=== PATIENT | female | born 1955 ===

== ENCOUNTER 2019-05-20 12:32 | Inpatient (IN) | payer BC ==
[2019-05-20] MEDS ORDERED: Al Hydrox/Mg Hydrox/Simet LIQ* 30 ML UDC PO PRN (14:06)
[2019-05-20] MEDS ORDERED: Magnesium Hydroxide LIQ* 30 ML UDC PO PRN (14:06)
[2019-05-20] MEDS ORDERED: Albuterol/Ipratropium NEB.SOL* Albuterol 2.5 MG/Ipratropium 0.5 MG 3 ML INH PRN (14:16)
[2019-05-20] MEDS ORDERED: oxyCODONE TAB* 5 MG TAB PO PRN (14:17)
[2019-05-20] MEDS ORDERED: Zolpidem TAB* 5 MG PO PRN (14:18)
[2019-05-20] MEDS ORDERED: Acetaminophen TAB* 325 MG PO PRN (14:51)
[2019-05-20] MEDS ORDERED: Acetaminophen TAB* 325 MG PO SCH (15:00)
[2019-05-20] MEDS ORDERED: diPHENhydraMINE PO* 25 MG PO PRN (18:26)
--- NOTE | 2019-05-20 20:08 | HP ---
CC: Dr. Urbano REHABILITATION ADMISSION: 05/20/2019 DATE OF ADMISSION: 05/20/2019 PRIMARY CARE PROVIDER: Currently none. VASCULAR SURGEON: Dr. Urbano with [facility]. REASON FOR ADMISSION: Left knee dislocation with popliteal artery transection and right humerus fracture. HISTORY OF PRESENT ILLNESS: This is a 63-year-old woman who on 05/05/[address] out to meet up with friends when she slipped on the ice and hyperextended her left knee and fell. She ended up dislocating her left knee with a transection of her left popliteal artery as well as sustained a right proximal humerus comminuted fracture. She was taken to [facility]. Orthopedics reduced her knee emergently, but pulses did not return to her leg. She was then taken to the OR for angiography and ultimately had a bypass of her popliteal artery above and below the transection with a BCA graft and medial and lateral fasciotomies. Initially, wound VACs were placed on her wounds. On 05/13/19, she was seen by Plastics and Reconstructive Surgery, who recommended ultimately having wet to dry dressings twice a day. When swelling is less they are considering primary closure. She was put into a knee orthosis with her left leg locked in 20 degrees of flexion and is nonweightbearing on her left lower extremity. The right proximal humerus is also being treated nonoperatively with a sling and nonweightbearing. As part of her injuries, she developed acute renal failure with rhabdomyolysis. Her creatinine peaked out at 6. She was put on a renal diet with avoidance of nephrotoxic drugs. Her renal function has improved, and as of today, her creatinine is down to 1.8. She has also had leukocytosis without any clear source of infection. It has come back more down towards the normal range and is 14.5 today. She has required at least 2 transfusions. The last transfusion was 2 units of packed red blood cells on 05/18/19. Today, her hemoglobin is 8.4, hematocrit 25.5. She has also had some hyponatremia. Her stomach was irritated from Tylenol which has happened in the past at home. She has not been using any pain medicines over the last few days. She has some discomfort but feels that she is better off not using any pain medications. MRI of her left knee on 05/14/19 showed complete ACL and PCL tears as well as some irregularity of the lateral meniscus. There is an avulsion fracture to the fibular styloid process. CT of the right shoulder on 05/15/19 showed a comminuted and minimally displaced right proximal humerus fracture. She is to follow up with [facility] in [place] on 05/30/19 at 9:30 in the morning with Melanie Vaz. She was seen by the renal service and has received some iron treatments. It has been recommended that as an outpatient she get electrodiagnostic testing as she has had loss of sensation and weakness from her knee down on the left side. She had some perioperative delirium which has cleared. She has been voiding on a bedpan. Her last bowel movement was this morning. Since the [place] has been out , she has had a little bit of urinary incontinence, but this was not a problem prior to admission. Prior to admission, she was independent with all mobility and ADLs and not using any assisted devices. With physical therapy at [facility], she has required a maximum assistance x2 for bed mobility and transferring using a margareth- walker. With occupational therapy, she has required a maximum amount of assistance for lower body dressing. PAST MEDICAL HISTORY: 1. History of left vitreous detachment of her eye. 2. Hypertension. 3. Rectocele and cystocele. 4. Bilateral cataract surgeries. 5. Status post tubal ligation. 6. Cardiomegaly. 7. Obesity. 8. Acute kidney injury secondary to rhabdomyolysis, see history of present illness. 9. Delirium, see history of present illness. 10. Former smoker, she denies emphysema. 11. Left knee dislocation, see history of present illness. 12. Right proximal humerus comminuted fracture, see history of present illness. 13. Left lower extremity neuropathy, see history of present illness. 14. s/p popliteal to popliteal bypass left leg after transection, see HPI. MEDICATIONS: 1. Tylenol 650 mg q.6 hours p.r.n. moderate pain. 2. DuoNeb 3 mL q.4 hours p.r.n. shortness of breath, which she has not needed. 3. Amlodipine 5 mg q. day. 4. Dulcolax 10 mg pr q. day p.r.n. 5. Multivitamin q. day. 6. Colace 100 mg b.i.d. 7. Milk of magnesia 30 mL b.i.d. p.r.n. constipation. 8. Oxycodone 5 mg q.4 hours p.r.n. severe pain. 9. She has been using Rozerem 8 mg q.h.s. p.r.n., which we will switch to Ambien. 10. Vitamin C 500 mg q. day. 11. Voltaren gel she used at home b.i.d. p.r.n. 12. Vitamin D 400 units q. day. 13. Vitamin B complex 1 q. day. 14. Heparin 5000 units subcutaneously q.8 hours for DVT prophylaxis. ALLERGIES: ASPIRIN and PENICILLIN. FAMILY HISTORY: She has had aunts with breast cancer and ovarian cancer. SOCIAL HISTORY: She lives with her in [place]. They live in a trailer with 5 steps to enter. He is a jefferson for [employer] and plans to build a ramp into their home. It is unclear if there is enough room for a wheelchair. She has a 60-pack a year smoking history and quit more than 10 years ago. She has 1 glass of wine per day. 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 She works from her home. REVIEW OF SYSTEMS: See history of present illness and past medical history. The remainder of the 13-system review was completed. No other significant findings. PHYSICAL EXAMINATION GENERAL: Well developed, well nourished, appearing stated age. MENTAL STATUS: No acute distress. Alert and oriented x3. VITAL SIGNS: Temperature 99.1, pulse 86, blood pressure 154/67, oxygenation 99 % on room air, respirations 16. HEENT: Normocephalic, atraumatic. Oropharynx is clear with moist mucous membranes. She does have poor dentition. NECK: Supple. No lymphadenopathy. LUNGS: Clear to auscultation bilaterally. HEART: Regular rate and rhythm. ABDOMEN: Active bowel sounds. Soft, nontender, nondistended. She does have some bruising from heparin shots. EXTREMITIES: No clubbing or cyanosis. She has some pedal edema, left greater than right. Her left leg is currently dressed and in the brace locked at 20 degrees of flexion. Her right arm was in a sling. NEUROLOGICAL EXAM: She has 5/5 strength in her left upper extremity and right lower extremity with normal sensation. She has normal sensation throughout her right upper extremity and 5/5 strength in her hand and wrist. The rest of testing limited by her restrictions. In the left lower extremity, she has impaired sensation from the knee down and just trace toe flexion. Cranial nerves II through XII are intact. MUSCULOSKELETAL: She has functional range of motion of her left arm and of her right leg. DIAGNOSTIC STUDIES/LAB DATA: Labs today, white blood cell count 14.5, hemoglobin 8.4, hematocrit 25.5, platelets 302. Sodium 129, potassium 3.6, BUN 57, creatinine 1.8. IMPRESSION: A 63-year-old woman status post left knee dislocation with popliteal artery transection requiring bypass and right proximal humerus fracture. PLAN: 1. Status post popliteal bypass. She is to follow up with Dr. Urbano in 2 weeks in the vascular clinic at [facility]. It has been recommend that she have a multi Podus boot on when she is in bed. She is to hold on any Plavix until after she has had her surgery with potential skin grafting with the Plastics and Reconstructive Service. She currently has a followup appointment with nurse in the plastic surgery clinic on 05/24/19, which we will see if we can change that as she just arrived here. She has a followup with Vascular Surgery on 06/03/19 at 11:20 in the morning. 2. Left knee dislocation and right humerus fracture. Continue with nonweightbearing precautions to the left lower extremity and right upper extremity. Continue with brace on her left leg locked to 20 degrees of flexion and range of motion and stretching of her left foot more than 5 times per day. Continue with slinging of the right arm. She has a followup with [facility] in [place] on 05/30/19 at 9:30 in the morning with Melanie Vaz. 3. Status post fasciotomy with wounds. Continue with wet to dry dressings b.i.d. to the left leg. Follow up with Plastics for possible consideration of tissue expansion and primary closure. 4. Acute blood loss anemia, status post transfusion. Her labs will be checked regularly. We will encourage regular nutrition and have a nutrition consult. 5. Neuropathy, presumably traumatic to the left lower limb. As an outpatient, she will need electrodiagnostic testing. She has had some slight return, hopefully this continues. 6. Acute renal failure. Her creatinine is improved enough I think she can be on a regular diet at this time. We will follow her renal function with regular labs and once again consult nutrition regarding her needs that assist with healing. 7. Hyponatremia. Follow up of labs. 8. Impaired mobility. She will be seen by Physical Therapy for transfer, bed mobility, and short distance of gait training using a margareth walker and wheelchair. 9. Impaired self-care. She will be by Occupational Therapy for ADL training and equipment evaluation. Family training as appropriate. 10. Advance directives. She is a full code. If she cannot make decisions for herself, her , Bradley Ashraf, will make decisions for her. ESTIMATED LENGTH OF STAY: Three weeks. This will be discussed further at the interdisciplinary plan of care meeting. [id number]/CPS #: [id number] GALO
[2019-05-20] MEDS: Docusate CAP* 100 MG PO SCH (21:29)
[2019-05-20] MEDS: Heparin VIAL(*) 5000 UNITS/ML VIAL (FIVE THOUSAND) SUBCUT SCH (21:29)
[2019-05-21 05:36] LABS: ABS Basophils 0.1 10^3/ul (0-0.2); ABS Eosinophils 0.1 10^3/ul (0-0.6); ABS Lymphocytes 1.3 10^3/ul (1.0-4.8); ABS Monocytes 1.3 10^3/ul (0-0.8); ABS Neutrophils 8.8 10^3/ul (1.5-7.7); Eosinophil % 0.7 %; Hematocrit 25 % (35-47); Hemoglobin 8.4 g/dL (12.0-16.0); Lymphocyte % 11.1 %; Mean Corpuscular HGB Conc 33 g/dL (31-36); Mean Corpuscular Hemoglobin 29 pg (27-31); Mean Corpuscular Volume 86 fL (80-97); Mean Platelet Volume 8.3 fL (7.4-10.4); Nucleated Red Blood Cells % 0.1; Platelet Count 299 10^3/uL (150-450); Red Blood Count 2.92 10^6 /uL (3.70-4.87); Red Cell Distribution Width 15 % (10-15); White Blood Count 11.6 10^3/uL (3.5-10.8)
[2019-05-21] MEDS: Heparin VIAL(*) 5000 UNITS/ML VIAL (FIVE THOUSAND) SUBCUT SCH ×3 (05:40→21:43)
[2019-05-21 06:02] LABS: Albumin 2.6 g/dL (3.2-5.2); BUN/Creatinine Ratio 27.2 (8-20); Calcium 7.9 mg/dL (8.6-10.3); EGFR African American 38.7 (>60); Globulin 2.5 g/dL (2-4); Potassium 3.8 mmol/L (3.5-5.0); Total Bilirubin 0.7 mg/dL (0.2-1.0); Total Protein 5.1 g/dL (6.4-8.9)
--- NOTE | 2019-05-21 08:18 | PN ---
Progress Note Date of Service: 05/21/19 Note: JI ASHRAF was visited. Nursing and therapy notes read and reviewed. No chest pain, shortness of breath or abdominal pain. She slept very well last night. Uses an anti-histamine at home for sleep and she will have her bring it in. Current Medications: Active Medications Generic Name Dose Route Start Last Admin Trade Name Freq PRN Reason Stop Dose Admin Acetaminophen 650 mg 05/20/19 14:51 Tylenol Tab* PO Q6H PRN PAIN - MODERATE Al Hydrox/Mg Hydrox/Simethicone 30 ml 05/20/19 14:06 Maalox Plus* PO Q6H PRN INDIGESTION Albuterol/Ipratropium 1 neb 05/20/19 14:16 Duoneb (Albuterol 2.5 Mg/Ipratropium 0.5 Mg) INH Q4H PRN SOB/WHEEZING Amlodipine Besylate 5 mg 05/21/19 09:00 Norvasc Tab* PO DAILY CANDIDO Ascorbic Acid 500 mg 05/21/19 09:00 Vitamin C Tab* PO DAILY CANDIDO Bisacodyl 10 mg 05/20/19 14:06 Dulcolax Supp* GA DAILY PRN CONSTIPATION Cholecalciferol 400 unit 05/21/19 09:00 Vitamin D Tab* PO DAILY CANDIDO Diphenhydramine HCl 25 mg 05/20/19 18:26 Benadryl Po* PO 05/21/19 18:25 ONCE PRN INSOMNIA Docusate Sodium 100 mg 05/20/19 21:00 05/20/19 21:29 Colace Cap* PO 100 mg BID CANDIDO Administration Heparin Sodium (Porcine) 5,000 units 05/20/19 22:00 05/21/19 05:40 Heparin Vial(*) SUBCUT 5,000 units Q8HR CANDIDO Administration Magnesium Hydroxide 30 ml 05/20/19 14:06 Milk Of Magnesia Liq* PO Q6H PRN CONSTIPATION Multivitamins/Minerals 1 tab 05/21/19 09:00 Theragran/Minerals Tab* PO DAILY CANDIDO Oxycodone HCl 5 mg 05/20/19 14:17 Roxycodone Tab* PO Q4H PRN PAIN - SEVERE Senna 2 tab 05/20/19 14:06 Senokot 8.6 Mg Tab* PO BEDTIME PRN CONSTIPATION Vitamin B Complex/Vitamin E 1 tab 05/21/19 09:00 B Complex-50* PO DAILY CANDIDO Zolpidem Tartrate 5 mg 05/20/19 14:18 Ambien Tab* PO BEDTIME PRN INSOMNIA Vital Signs: Vital Signs Temp Pulse Resp BP Pulse Ox 98.1 F 73 18 139/53 96 05/21/19 05:58 05/21/19 05:58 05/21/19 05:58 05/21/19 05:58 05/21/19 05:58 Lab Results: Laboratory Results - last 24 hr 05/21/19 05/21/19 05:26 05:26 WBC 11.6 H RBC 2.92 L Hgb 8.4 L Hct 25 L MCV 86 MCH 29 MCHC 33 RDW 15 Plt Count 299 MPV 8.3 Neut % (Auto) 76.2 Lymph % (Auto) 11.1 [place] % (Auto) 11.4 Eos % (Auto) 0.7 Baso % (Auto) 0.6 Absolute Neuts (auto) 8.8 H Absolute Lymphs (auto) 1.3 Absolute Monos (auto) 1.3 H Absolute Eos (auto) 0.1 Absolute Basos (auto) 0.1 Absolute Nucleated RBC 0.0 Nucleated RBC % 0.1 Sodium 135 Potassium 3.8 Chloride 101 Carbon Dioxide 29 Anion Gap 5 BUN 44 H Creatinine 1.62 H Est GFR ( Amer) 38.7 Est GFR (Non-Af Amer) 32.0 BUN/Creatinine Ratio 27.2 H Glucose 115 H Calcium 7.9 L Total Bilirubin 0.70 AST 33 ALT 40 Alkaline Phosphatase 49 Total Protein 5.1 L Albumin 2.6 L Globulin 2.5 Albumin/Globulin Ratio 1.0 Exam: GENERAL: No acute distress. Alert and appropriate. LUNGS: Clear to auscultation bilaterally. HEART: Regular rate and rhythm. ABDOMEN: Active bowel sounds. Soft, nontender, nondistended. EXTREMITIES: She has some pedal edema, left greater than right. +DP/PT pulses bilaterally. Left leg brace locked at 20 degrees of flexion. Right arm in a sling. SKIN: Left leg dressings changed with nursing. Granulating tissue in wounds. Lateral wound with serous drainage. Looks clean. NEUROLOGICAL EXAM: Normal sensation x3. Impaired sensation in left leg below the knee. Trace left toe flexion and otherwise 0/5 left foot/ankle. Exam of rest of LLE motor limited by restrictions. RLE and LUIE motor 5/5. RUE motor 5 /5 in hand and wrist with rest of exam limited by sling/restriction. Assessment/Plan: 63-year-old woman status post left knee dislocation with popliteal artery transection requiring bypass and right proximal humerus fracture. 1. Status post popliteal bypass: She is to follow up with Dr. Urbano in 2 weeks in the vascular clinic at [facility]. Hold on Plavix until after she has had surgery with potential skin grafting with the Plastics and Reconstructive Service. She has a followup with Vascular Surgery on 06/03/19 at 11:20a. 2. Left knee dislocation and right humerus fracture: Continue with non-weight bearing precautions to the left lower extremity and right upper extremity. Continue with brace on her left leg locked to 20 degrees of flexion. Range of motion and stretching of her left foot/ankle at least 5 times per day to prevent contracture. Continue with sling of the right arm. She has a followup with [facility] in [place] on 05/30/19 at 9:30 in the morning with Melanie Vaz. 3. Status post LLE fasciotomy with open wounds: Continue with moist to dry dressings b.i.d. to the left leg. Follow up with Plastics for possible consideration of tissue expansion and primary closure. She has a followup appointment with a nurse in the plastic surgery clinic on 05/24/19, which we will see if we can change. 4. Acute blood loss anemia: stable. Follow routine labs. 5. Traumatic neuropathy to the left lower limb involving tibial and peroneal nerves: As an outpatient, she will need electrodiagnostic testing. Multi Podus boot on LLE when she is in bed. 6. Acute renal failure: Cr improving. Follow routine labs. 7. Hyponatremia: Resolved. 8. Leukocytosis: resolving without any intervention. 9. Impaired mobility: PT for transfer, bed mobility, and short distance gait training using a margareth walker and wheelchair. 10. Impaired self-care: OT for ADL training and equipment evaluation. Family training as appropriate. 11. Advance directives: She is a full code. If she cannot make decisions for herself, her , Bradley Ashraf, will make decisions for her. 12. Estimated LOS: IPOC on Thursday. 05/21/19 09:27
[2019-05-21] MEDS ORDERED: Ascorbic Acid TAB* 500 MG PO SCH (09:00)
[2019-05-21] MEDS ORDERED: Vitamin B Complex TAB PO SCH (09:00)
[2019-05-21] MEDS ORDERED: diPHENhydraMINE PO* 25 MG PO PRN (09:14)
[2019-05-21] MEDS: Cholecalciferol TAB* 400 UNIT PO SCH (11:01)
[2019-05-21] MEDS: amLODIPine TAB* 5 MG PO SCH (11:01)
[2019-05-21] MEDS: Docusate CAP* 100 MG PO SCH ×2 (11:01→21:43)
[2019-05-21] MEDS: Multivitamins/Minerals TAB PO SCH (11:01)
[2019-05-22] MEDS: Heparin VIAL(*) 5000 UNITS/ML VIAL (FIVE THOUSAND) SUBCUT SCH ×3 (06:17→21:59)
[2019-05-22] MEDS: amLODIPine TAB* 5 MG PO SCH (08:32)
[2019-05-22] MEDS: Docusate CAP* 100 MG PO SCH ×2 (08:32→21:59)
[2019-05-22] MEDS: Cholecalciferol TAB* 400 UNIT PO SCH (08:33)
[2019-05-22] MEDS: Multivitamins/Minerals TAB PO SCH (08:33)
[2019-05-22] MEDS: [UNRECOGNIZED DRUG - OTHER] PO SCH (08:34)
--- NOTE | 2019-05-22 10:06 | PN ---
Progress Note Date of Service: 05/22/19 Note: JI ASHRAF was visited. Nursing and therapy notes read and reviewed. Her family brought in supplements. Current Medications: Active Medications Generic Name Dose Route Start Last Admin Trade Name Freq PRN Reason Stop Dose Admin Acetaminophen 650 mg 05/20/19 14:51 Tylenol Tab* PO Q6H PRN PAIN - MODERATE Al Hydrox/Mg Hydrox/Simethicone 30 ml 05/20/19 14:06 Maalox Plus* PO Q6H PRN INDIGESTION Amlodipine Besylate 5 mg 05/21/19 09:00 05/22/19 08:32 Norvasc Tab* PO 5 mg DAILY CANDIDO Administration Bisacodyl 10 mg 05/20/19 14:06 Dulcolax Supp* [place] DAILY PRN CONSTIPATION Cholecalciferol 400 unit 05/21/19 09:00 05/22/19 08:33 Vitamin D Tab* PO 400 unit DAILY CANDIDO Administration Docusate Sodium 100 mg 05/20/19 21:00 05/22/19 08:32 Colace Cap* PO 100 mg BID CANDIDO Administration Heparin Sodium (Porcine) 5,000 units 05/20/19 22:00 05/22/19 06:17 Heparin Vial(*) SUBCUT 5,000 units Q8HR CANDIDO Administration Magnesium Hydroxide 30 ml 05/20/19 14:06 Milk Of [place] Liq* PO Q6H PRN CONSTIPATION Multivitamins/Minerals 1 tab 05/21/19 09:00 05/22/19 08:33 Theragran/Minerals Tab* PO 1 tab DAILY CANDIDO Administration Pto - Sleep Aid ( 1 dose 05/21/19 17:58 Doxylamine 25 Mg) PO BEDTIME PRN SLEEP Pto - Super B Mvi 1 dose 05/22/19 09:00 05/22/19 08:34 Supplement PO 1 dose DAILY CANDIDO Administration Pto - Super C Mvi 1 dose 05/22/19 18:00 PO BID WITH MEALS CANDIDO Oxycodone HCl 5 mg 05/20/19 14:17 Roxycodone Tab* PO Q4H PRN PAIN - SEVERE Senna 2 tab 05/20/19 14:06 Senokot 8.6 Mg Tab* PO BEDTIME PRN CONSTIPATION Vital Signs: Vital Signs Temp Pulse Resp BP Pulse Ox 98.2 F 76 16 153/69 100 05/22/19 06:10 05/22/19 06:10 05/22/19 08:00 05/22/19 06:10 05/22/19 08:00 Exam: GENERAL: No acute distress. Alert and appropriate. LUNGS: Clear to auscultation bilaterally. HEART: Regular rate and rhythm. ABDOMEN: Active bowel sounds. Soft, nontender, nondistended. EXTREMITIES: She has some pedal edema, left greater than right. +DP/PT pulses bilaterally. Left leg brace locked at 20 degrees of flexion. Right arm in a sling. SKIN: Left leg dressings changed with nursing. Granulating tissue in wounds. Looks clean. NEUROLOGICAL EXAM: Normal sensation x3. Impaired sensation in left leg below the knee. Trace left toe flexion and otherwise 0/5 left foot/ankle. Exam of rest of LLE motor limited by restrictions. RLE and LUE motor 5/5. RUE motor 5/ 5 in hand and wrist with rest of exam limited by sling/restriction. 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 1. Status post popliteal bypass: She is to follow up with Dr. Urbano in 2 weeks in the vascular clinic at [facility]. Hold on Plavix until after she has had surgery with potential skin grafting with the Plastics and Reconstructive Service. She has a followup with Vascular Surgery on 06/03/19 at 11:20a. 2. Left knee dislocation and right humerus fracture: Continue with non-weight bearing precautions to the left lower extremity and right upper extremity. Continue with brace on her left leg locked to 20 degrees of flexion. Range of motion and stretching of her left foot/ankle at least 5 times per day to prevent contracture. Continue with sling of the right arm. She has a followup with [facility] in [place] on 05/30/19 at 9:30 in the morning with Melanie Vaz. 3. Status post LLE fasciotomy with open wounds: Continue with moist to dry dressings b.i.d. to the left leg. Follow up with Plastics for possible consideration of tissue expansion and primary closure. She has a follow up appointment with a nurse in the plastic surgery clinic on 05/24/19, which we will see if we can change. 4. Acute blood loss anemia: stable. Follow routine labs. 5. Traumatic neuropathy to the left lower limb involving tibial and peroneal nerves: As an outpatient, she will need electrodiagnostic testing. Multi Podus boot on LLE when she is in bed. 6. Acute renal failure: Cr improving. Follow routine labs. 7. Hyponatremia: Resolved. 8. Leukocytosis: resolving without any intervention. 9. Impaired mobility: PT for transfer, bed mobility, and short distance gait training using a margareth walker and wheelchair. 10. Impaired self-care: OT for ADL training and equipment evaluation. Family training as appropriate. 11. Advance directives: She is a full code. If she cannot make decisions for herself, her , Bradley Ashraf, will make decisions for her. 12. Vitamin D deficiency: has own supplement of 5000iu daily. Will restart and check level with next labs on Thursday. 13. Estimated LOS: IPOC on Thursday. 05/22/19 10:09
[2019-05-22] MEDS ORDERED: [UNRECOGNIZED DRUG - OTHER] PO SCH (10:30)
[2019-05-22] MEDS: [UNRECOGNIZED DRUG - OTHER] PO SCH (13:08)
[2019-05-22] MEDS: [UNRECOGNIZED DRUG - OTHER] PO SCH ×2 (13:09→17:20)
[2019-05-22] MEDS: [UNRECOGNIZED DRUG - OTHER] PO SCH (17:08)
[2019-05-23] MEDS: [UNRECOGNIZED DRUG - OTHER] PO PRN ×2 (00:49→22:35)
[2019-05-23] MEDS: DOXYLAMINE PO PRN ×2 (00:49→22:35)
[2019-05-23] MEDS: Heparin VIAL(*) 5000 UNITS/ML VIAL (FIVE THOUSAND) SUBCUT SCH ×3 (04:43→21:04)
[2019-05-23] MEDS: [UNRECOGNIZED DRUG - OTHER] PO SCH (08:12)
[2019-05-23] MEDS: [UNRECOGNIZED DRUG - OTHER] PO SCH (08:12)
[2019-05-23] MEDS: [UNRECOGNIZED DRUG - OTHER] PO SCH ×2 (08:12→17:07)
[2019-05-23] MEDS: amLODIPine TAB* 5 MG PO SCH (08:13)
[2019-05-23] MEDS: Docusate CAP* 100 MG PO SCH ×2 (08:13→21:05)
[2019-05-23] MEDS: Multivitamins/Minerals TAB PO SCH (08:14)
[2019-05-23] MEDS: Cholecalciferol TAB* 400 UNIT PO SCH (08:29)
[2019-05-23] MEDS: [UNRECOGNIZED DRUG - OTHER] PO SCH ×3 (08:29→17:08)
--- NOTE | 2019-05-23 13:08 | PMRUTEAM ---
PMRU: Team Meeting Current Status: Physical Therapy: Current Status Current Rolling Status Partial/Moderate Current Supine <-> Sit Status Dependent Current Sit <-> Stand Status Dependent Current Bed <-> Chair Status Dependent Transfer/Bed Mobility EZ Stand,Slide Board Recommended Devices Current Picking Up Object Not attempted Status Current Car Transfer Status Not attempted due to Current Ambulation Assistance Not attempted Status Manual Wheelchair Control/ Left UE Technique Current Wheelchair Propulsion Partial/Moderate Ability Status Wheelchair Distance (ft) 50' Current Stair Climbing Status Not attempted Current Curb Assistance Status Not attempted Objective Comments Pt attempts to propel manual WC with LUE/RLE - pt requires min Ax1 to propel 50' over even surfaces with >2 turns Occupational Therapy: Current Status Current Upper Body Dressing Partial/Moderate Status Current Lower Body Dressing Dependent Status Current Footwear Status Dependent Current Bathing Status Partial/Moderate Current Grooming Status Setup or Clean-up Assist Current Toileting Status Dependent Current Toilet Transfer Status Dependent Current Eating Status Setup or Clean-up Assist Nursing: Current Status Skin Deviations [Left Knee] Abrasion Skin Deviations [Left Lower Abrasion Arm] Skin Deviations [Right Arm] Other Skin Deviations [Left Lower Incision Leg] Skin Deviations [Left Upper Incision Thigh] Skin Deviations [Right Groin] Abrasion Skin Deviations [Coccyx] Rash Skin Deviation Description [ scabs at anterior and posterior of the knee Left Knee] Skin Deviation Description [ in sling Right Arm] Skin Deviation Description [ immobilizer and multipodus boot on Left Lower Leg] Skin Deviation Description [ drsgs in place Left Upper Thigh] Skin Deviation Description [ scabs Right Groin] Skin Deviation Description [ slid---cream was applied Coccyx] Social Work: Current Status Discharge Plan return home with home care svs and family support Potential for Family Training patient's family are involved and supportive Anticipated Discharge Home Destination Discharge With home care svs and family support Goals: Physical Therapy: Goals Goals to Be Accomplished in ( 21-28 Days) Goal: Rolling Assistance Independent Goal Supine <-> Sit Status Independent Goal Sit <-> Stand Status Supervision/Touching Goal Bed <-> Chair Status Supervision/Touching Transfer/Bed Mobility Mike Lift,Slide Board Recommended Devices Goal: Picking Up Object Supervision/Touching Goal: Car Transfer Status Partial/Moderate Goal: Ambulation Assistance Not attempted Goal: Wheelchair Propulsion Independent Ability Wheelchair Distance (ft) 150' Goal: Stairs Assistance Not attempted Goal: Curb Assistance Not attempted Goal: Home Exercise Program Independent Assistance Occupational Therapy: Goals Goals to be Completed in (Days 21-28 days ) Goal Upper Body Dressing Independent Routine Goal Lower Body Dressing Independent Routine Goal Footwear Status Independent Goal Bathing Routine (OT) Independent Goal Grooming Routine Independent Goal Toilet Hygiene and Independent Clothing Management Routine Goal Toilet Transfer Routine Independent Goal Functional Transfers for Independent ADL Goal Feeding Routine Independent Goal Light Housekeeping Tasks Independent Nutrition: Goals Intervention Goals 1. adequate intake to support lean body mass and LLE wound healing without add'l wt gain 2. maintain serum electrolytes WNL 3. achieve and maintain renal parameters WNL 4. regulation of bowel pattern; no c/o constipation (or diarrhea) Social Work: Goals Discharge Plan return home with home care svs and family support Potential for Family Training patient's family are involved and supportive Anticipated Discharge Home Destination Discharge With home care svs and family support Care Plan: Care Plan Cardiovascular- Improve/Maintain Start: 05/20/19 16:10 Freq: DAILY@[id number] Status: Active Target: 05/26/19 Protocol: Activity Type Activity Date Activity User E-Sign Co-Sign Detail Recorded Client Recorded Date Recorded By Document 05/22/19 23:59 [id number] 05/22/19 23:59 [id number] 05/22/19 23:59 PMRU Outcome: Cardiovascular Vital Signs q Shift for 48hrs Then BID Yes Daily Weight Ordered No Current Cardiovascular Outcome/Goal Maintain/ Achieve Baseline HR, BP , Perfusion Maintain/ Improve Perfusion Maintain/ Achieve Hemodynamic Stability Free of Abnormal Cardiac Symptoms Improve/ Maintain Cardiac Output Progression Toward Outcome/Goal Progressing DVT Prophylaxis- Improve/Maintain Start: 05/20/19 16:10 Freq: DAILY@[id number] Status: Active Target: 05/26/19 Protocol: Activity Type Activity Date Activity User E-Sign Co-Sign Detail Recorded Client Recorded Date Recorded By Document 05/22/19 23:59 [id number] 05/22/19 23:59 [id number] 05/22/19 23:59 PMRU Outcome: DVT Prophylaxis Current DVT Outcome/Goals Remains Free of DVT Complies with DVT Prophylaxis /Treatment Demonstrates Knowledge of DVT Prevention/ Treatment TEDS Stockings on Every AM, Off at HS Progression Toward Outcome/Goals Progressing Discharge Planning - Improve/Maintain Start: 05/20/19 16:10 Freq: DAILY@ Status: Active Target: 05/26/19 Protocol: Activity Type Activity Date Activity User E-Sign Co-Sign Detail Recorded Client Recorded Date Recorded By Document 05/22/19 23:59 [id number] 05/22/19 23:59 [id number] 05/22/19 23:59 PMRU Outcome: Discharge Planning Update Patient Family Yes Current Discharge Planning Outcome/Goals Demonstrates Understanding of Discharge Plan Progression Toward Outcome/Goals Progressing Education-Improve/Maintain Start: 05/20/19 16:10 Freq: DAILY@[id number] Status: Active Target: 05/25/19 Protocol: Activity Type Activity Date Activity User E-Sign Co-Sign Detail Recorded Client Recorded Date Recorded By Document 05/22/19 23:59 [id number] 05/22/19 23:59 [id number] 05/22/19 23:59 PMRU Outcome: Education Current Education Outcome/Goals Demonstrate/ Verbalize Understanding of Written Discharge Instructions Demonstrates Skills Encourage Questions Progression Toward Outcome/Goals Progressing Mobility- Improve/Maintain Start: 05/20/19 16:10 Freq: DAILY@ Status: Active Target: 05/21/19 Protocol: Activity Type Activity Date Activity User E-Sign Co-Sign Detail Recorded Client Recorded Date Recorded By Document 05/20/19 16:57 [id number] 05/20/19 16:58 [id number] 05/20/19 16:57 PMRU Outcome: Mobility Physical Therapy Evaluation and Yes Treatment Activity OOB with Assistance Yes WBAT No NWB Yes: NWB RUE/ LLE TTWB No Device Yes Assistance Yes Patient to be seen 5x/wk for 60-120 min/ Therex day for: Mobility Training W/C Mobility Balance Other Other Therapy Comment discharge training, discharge planning Current Mobility Outcome/Goals Improve Mobility Status Demonstrates Proper Use of Assistive Devices Progression Toward Outcome/Goals Goal Initiation Bed Mobility Yes: independent Transfers Yes: supervision with SB or HW Gait x ft No W/C Mobility x ft Yes: independent 150 ' Up/Down Stairs No: ramp entrance recommended With HEP Yes: independent Safety- Improve/Maintain Start: 05/20/19 14:55 Freq: DAILY@[id number] Status: Active Target: 05/25/19 Protocol: Activity Type Activity Date Activity User E-Sign Co-Sign Detail Recorded Client Recorded Date Recorded By Document 05/22/19 23:59 [id number] 05/22/19 23:59 [id number] 05/22/19 23:59 PMRU Outcome: Safety Current Safety Outcome/Goals Remain Free of Injury or Harm Cooperates with Safety Measures for Least Restrictive Environment Prevent Falls/ Injury Equipment Needed Progression Toward Outcome/Goals Progressing Skin- Improve/Maintain Start: 05/20/19 16:10 Freq: DAILY@0700,1900 Status: Active Target: 05/26/19 Protocol: Activity Type Activity Date Activity User E-Sign Co-Sign Detail Recorded Client Recorded Date Recorded By Document 05/22/19 23:59 [id number] 05/22/19 23:59 [id number] 05/22/19 23:59 PMRU Outcome: Skin Skin Risk Level High Risk Skin Orders Dressing Change Multipodus Boot Heels Off Bed Skin Orders Comment Dressing change BID Current Skin Outcome/Goals Maintain/ Improve Skin Integrity Free from Pressure Injury Maintain/ Improve Wound Status Surgical Incisions Healing Progression Toward Outcome/Goals Progressing - Interdisciplinary Staff Present Manager Hiv/Social Work Staff Present: Katy Gaxiola LMSW OT Staff Present: Gabi Delgado PT Staff Present: Gabi Beverly Medicine Note: Length of Stay: 4 weeks Anticipated Discharge Destination: Home Tentative Discharge Date: 06/21/2019 Discharged to: Home
--- NOTE | 2019-05-23 19:14 | PN ---
Progress Note Date of Service: 05/23/19 Note: JI ASHRAF was visited. Therapy notes read and reviewed. She was discussed in interdisciplinary plan of care rounds. She is in minimal pain but fatigues easily. She is still trying to process the events of last week. Current Medications: Active Medications Generic Name Dose Route Start Last Admin Trade Name Freq PRN Reason Stop Dose Admin Acetaminophen 650 mg 05/20/19 14:51 Tylenol Tab* PO Q6H PRN PAIN - MODERATE Al Hydrox/Mg Hydrox/Simethicone 30 ml 05/20/19 14:06 Maalox Plus* PO Q6H PRN INDIGESTION Amlodipine Besylate 5 mg 05/21/19 09:00 05/23/19 08:13 Norvasc Tab* PO 5 mg DAILY CANDIDO Administration Bisacodyl 10 mg 05/20/19 14:06 Dulcolax Supp* TX DAILY PRN CONSTIPATION Cholecalciferol 400 unit 05/21/19 09:00 05/23/19 08:29 Vitamin D Tab* PO 400 unit DAILY CANDIDO Administration Docusate Sodium 100 mg 05/20/19 21:00 05/23/19 08:13 Colace Cap* PO 100 mg BID CANDIDO Administration Heparin Sodium (Porcine) 5,000 units 05/20/19 22:00 05/23/19 13:29 Heparin Vial(*) SUBCUT 5,000 units Q8HR CANDIDO Administration Magnesium Hydroxide 30 ml 05/20/19 14:06 Milk Of Magnesia Liq* PO Q6H PRN CONSTIPATION Multivitamins/Minerals 1 tab 05/21/19 09:00 05/23/19 08:14 Theragran/Minerals Tab* PO 1 tab DAILY CANDIDO Administration Pto - Sleep Aid ( 1 dose 05/21/19 17:58 05/23/19 00:49 Doxylamine 25 Mg) PO 1 dose BEDTIME PRN Administration SLEEP Pto - Super B Mvi 1 dose 05/22/19 09:00 05/23/19 08:12 Supplement PO 1 dose DAILY CANDIDO Administration Pto - Super C Mvi 1 dose 05/22/19 18:00 05/23/19 17:07 PO 1 dose BID WITH MEALS CANDIDO Administration Pto - Vitamin De 5,000 units 05/22/19 10:15 05/23/19 08:12 Gold 5,000 Units PO 5,000 units DAILY CANDIDO Administration Pto - Inner Defense 1 cap 05/22/19 17:00 05/23/19 17:08 Supplement 1 Cap PO 1 cap 0900,1700 CANDIDO Administration Oxycodone HCl 5 mg 05/20/19 14:17 Roxycodone Tab* PO Q4H PRN PAIN - SEVERE Senna 2 tab 05/20/19 14:06 Senokot 8.6 Mg Tab* PO BEDTIME PRN CONSTIPATION Vital Signs: Vital Signs Temp Pulse Resp BP Pulse Ox 98.5 F 80 22 149/65 100 05/23/19 16:10 05/23/19 16:10 05/23/19 16:10 05/23/19 16:10 05/23/19 17:53 Exam: GENERAL: No acute distress. Alert and appropriate. LUNGS: Clear to auscultation bilaterally. HEART: Regular rate and rhythm. ABDOMEN: Active bowel sounds. Soft, nontender, nondistended. EXTREMITIES: She has some pedal edema, left greater than right. +DP/PT pulses bilaterally. Left leg brace locked at 20 degrees of flexion. Right arm in a sling. SKIN: Left leg dressings inact. NEUROLOGICAL EXAM: Normal sensation x3. Impaired sensation in left leg below the knee. Trace left toe flexion and otherwise 0/5 left foot/ankle. Exam of rest of LLE motor limited by restrictions. RLE and LUE motor 5/5. RUE motor 5/ 5 in hand and wrist with rest of exam limited by sling. 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 1. Status post popliteal bypass: She is to follow up with Dr. Urbano in 2 weeks in the vascular clinic at [facility]. Hold on Plavix until after she has had surgery with potential skin grafting with the [facility]. She has a followup with Vascular Surgery on 06/03/19 at 11:20a. 2. Left knee dislocation and right humerus fracture: Continue with non-weight bearing precautions to the left lower extremity and right upper extremity. Continue with brace on her left leg locked to 20 degrees of flexion. Range of motion and stretching of her left foot/ankle at least 5 times per day to prevent contracture. Continue with sling of the right arm. She has a followup with [facility] in [place] on 05/30/19 at 9:30 in the morning with Melanie Vaz. 3. Status post LLE fasciotomy with open wounds: Continue with moist to dry dressings b.i.d. to the left leg. Follow up with plastic surgery clinic about closure. 4. Acute blood loss anemia: stable. Follow routine labs. 5. 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 Multi Podus boot on LLE when she is in bed. 6. Acute renal failure: Cr improving. Follow routine labs. 7. Leukocytosis: WBC 11.6 on 05/21 8. Impaired mobility: PT for transfer, bed mobility, and short distance gait training using a margareth walker and wheelchair. 9. Impaired self-care: OT for ADL training and equipment evaluation. Family training as appropriate. 10. Advance directives: She is a full code. Her , Bradley Ashraf, is surrogate decision maker. 11. Vitamin D deficiency: has own supplement of 5000iu daily. 05/23/19 19:15 05/23/19 19:16
[2019-05-24] MEDS: Heparin VIAL(*) 5000 UNITS/ML VIAL (FIVE THOUSAND) SUBCUT SCH ×3 (06:21→21:34)
[2019-05-24] MEDS: Cholecalciferol TAB* 400 UNIT PO SCH (10:12)
[2019-05-24] MEDS: amLODIPine TAB* 5 MG PO SCH (10:12)
[2019-05-24] MEDS: Docusate CAP* 100 MG PO SCH ×2 (10:12→21:33)
[2019-05-24] MEDS: Multivitamins/Minerals TAB PO SCH (10:12)
[2019-05-24] MEDS: [UNRECOGNIZED DRUG - OTHER] PO SCH (10:13)
[2019-05-24] MEDS: [UNRECOGNIZED DRUG - OTHER] PO SCH (10:13)
[2019-05-24] MEDS: [UNRECOGNIZED DRUG - OTHER] PO SCH ×2 (10:13→18:34)
[2019-05-24] MEDS: [UNRECOGNIZED DRUG - OTHER] PO SCH ×2 (10:13→18:34)
--- NOTE | 2019-05-24 12:44 | PMRUTEAM ---
PMRU: Team Meeting Current Status: Physical Therapy: Current Status Current Rolling Status Partial/Moderate Current Supine <-> Sit Status Dependent Current Sit <-> Stand Status Dependent Current Bed <-> Chair Status Dependent Transfer/Bed Mobility Mike Lift,Slide Board Recommended Devices Current Picking Up Object Not attempted Status Current Car Transfer Status Not attempted due to Current Ambulation Assistance Not attempted Status Manual Wheelchair Control/ Left UE Technique Current Wheelchair Propulsion Partial/Moderate Ability Status Wheelchair Distance (ft) 50' Current Stair Climbing Status Not attempted Current Curb Assistance Status Not attempted Objective Comments Pt attempts to propel manual WC with LUE/RLE - pt requires min Ax1 to propel 50' over even surfaces with >2 turns Occupational Therapy: Current Status Current Upper Body Dressing Partial/Moderate Status Current Lower Body Dressing Dependent Status Current Footwear Status Dependent Current Bathing Status Partial/Moderate Current Grooming Status Setup or Clean-up Assist Current Toileting Status Dependent Current Toilet Transfer Status Dependent Current Eating Status Setup or Clean-up Assist Nursing: Current Status Skin Deviations [Left Knee] Incision Skin Deviations [Left Lower Abrasion Arm] Skin Deviations [Right Arm] Bruise Skin Deviations [Left Lower Incision Leg] Skin Deviations [Left Upper Incision Thigh] Skin Deviations [Right Groin] Previous Access Point Skin Deviations [Coccyx] Rash Skin Deviation Description [ knee immoblizer in place Left Knee] Skin Deviation Description [ Sling in place Right Arm] Skin Deviation Description [ Knee immobilizer in place Left Lower Leg] Skin Deviation Description [ drsgs in place Left Upper Thigh] Skin Deviation Description [ scabs Right Groin] Skin Deviation Description [ slid---cream was applied Coccyx] Rec Therapy: Current Status Summary of Assessment and Recreation therapy assessment complete and pt is Clinical Impression aware of services. Pt is open to continued leisure visits, pet therapy, and is participating in independent leisure interests in her room. Treatment Goals Pt will engage in leisure activities while on the unit as tolerated Treatment Plan Provide recreation therapy services and encourge involvement Social Work: Current Status Discharge Plan return home with home care svs and family support Potential for Family Training TBD (family live out of the area & works during the day) Anticipated Discharge Home Destination Discharge With home care svs Nutrition: Current Status Monitoring From 05/21 admit nutrition assessment: consult requested for pt adm 05/20 following a complicated knee injury w/LLE fasciotomy that is now requiring extensive healing. She is NWB to that leg. She also has a right humerus fx; she is right-hand dominant, but it doing "ok" w/self- feeding, occasionally requiring items to be cut for her (eg: salads). She is typically a good eater with a good appetite. Regular diet appropriate. She is aware of the need for adequate protein for healing; ordering eggs, milk, deli sandwiches, and other appropriate entrees. States that family is bringing her bone broth this evening. She declines other snacks at this time, though aware of availability of sandwiches, cottage cheese, peanut butter, and other high- protein snacks. She is prescribed Tylenol PRN, but has reported that it causes "stomach irritation"; will follow for any GI distress. Other skin intact; low risk for pressure-related breakdown. No c/o constipation at this time; had BMs yesterday and today. Labs all appear to be improving, per labs at [facility]. Will cont to follow progress, intake, labs, and wound healing. [ End ] Goals: Physical Therapy: Goals Goals to Be Accomplished in ( 21-28 Days) Goal: Rolling Assistance Independent Goal Supine <-> Sit Status Independent Goal Sit <-> Stand Status Supervision/Touching Goal Bed <-> Chair Status Supervision/Touching Transfer/Bed Mobility Mike Lift,Slide Board Recommended Devices Goal: Picking Up Object Supervision/Touching Goal: Car Transfer Status Partial/Moderate Goal: Ambulation Assistance Not attempted Goal: Wheelchair Propulsion Independent Ability Wheelchair Distance (ft) 150' Goal: Stairs Assistance Not attempted Goal: Curb Assistance Not attempted Goal: Home Exercise Program Independent Assistance Occupational Therapy: Goals Goals to be Completed in (Days 21-28 days ) Goal Upper Body Dressing Independent Routine Goal Lower Body Dressing Independent Routine Goal Footwear Status Independent Goal Bathing Routine (OT) Independent Goal Grooming Routine Independent Goal Toilet Hygiene and Independent Clothing Management Routine Goal Toilet Transfer Routine Independent Goal Functional Transfers for Independent ADL Goal Feeding Routine Independent Goal Light Housekeeping Tasks Independent Nutrition: Goals Intervention Goals 1. adequate intake to support lean body mass and LLE wound healing without add'l wt gain 2. maintain serum electrolytes WNL 3. achieve and maintain renal parameters WNL 4. regulation of bowel pattern; no c/o constipation (or diarrhea) Social Work: Goals Discharge Plan return home with home care svs and family support Potential for Family Training TBD (family live out of the area & works during the day) Anticipated Discharge Home Destination Discharge With home care svs Care Plan: Care Plan Cardiovascular- Improve/Maintain Start: 05/20/19 16:10 Freq: DAILY@0700,1900 Status: Active Target: 06/17/19 Protocol: Activity Type Activity Date Activity User E-Sign Co-Sign Detail Recorded Client Recorded Date Recorded By Document 05/24/19 07:00 [id number] 05/24/19 12:08 [id number] 05/24/19 07:00 PMRU Outcome: Cardiovascular Vital Signs q Shift for 48hrs Then BID Yes Daily Weight Ordered No Current Cardiovascular Outcome/Goal Maintain/ Achieve Baseline HR, BP , Perfusion Maintain/ Improve Perfusion Maintain/ Achieve Hemodynamic Stability Free of Abnormal Cardiac Symptoms Improve/ Maintain Cardiac Output Progression Toward Outcome/Goal Progressing DVT Prophylaxis- Improve/Maintain Start: 05/20/19 16:10 Freq: DAILY@[id number] Status: Active Target: 06/17/19 Protocol: Activity Type Activity Date Activity User E-Sign Co-Sign Detail Recorded Client Recorded Date Recorded By Document 05/24/19 07:00 [id number] 05/24/19 12:08 [id number] 05/24/19 07:00 PMRU Outcome: DVT Prophylaxis Current DVT Outcome/Goals Remains Free of DVT Complies with DVT Prophylaxis /Treatment Demonstrates Knowledge of DVT Prevention/ Treatment TEDS Stockings on Every AM, Off at HS Progression Toward Outcome/Goals Progressing Discharge Planning - Improve/Maintain Start: 05/20/19 16:10 Freq: DAILY@[id number] Status: Active Target: 06/17/19 Protocol: Activity Type Activity Date Activity User E-Sign Co-Sign Detail Recorded Client Recorded Date Recorded By Document 05/24/19 07:00 [id number] 05/24/19 12:08 [id number] 05/24/19 07:00 PMRU Outcome: Discharge Planning Update Patient Family Yes Current Discharge Planning Outcome/Goals Demonstrates Understanding of Discharge Plan Progression Toward Outcome/Goals Progressing Education-Improve/Maintain Start: 05/20/19 16:10 Freq: DAILY@699,1900 Status: Active Target: 06/17/19 Protocol: Activity Type Activity Date Activity User E-Sign Co-Sign Detail Recorded Client Recorded Date Recorded By Document 05/24/19 07:00 [id number] 05/24/19 12:08 [id number] 05/24/19 07:00 PMRU Outcome: Education Current Education Outcome/Goals Demonstrate/ Verbalize Understanding of Written Discharge Instructions Demonstrates Skills Encourage Questions Progression Toward Outcome/Goals Progressing Mobility- Improve/Maintain Start: 05/20/19 16:10 Freq: DAILY@0700,1900 Status: Active Target: 05/21/19 Protocol: Activity Type Activity Date Activity User E-Sign Co-Sign Detail Recorded Client Recorded Date Recorded By Document 05/23/19 13:33 [id number] 05/23/19 13:33 [id number] 05/23/19 13:33 PMRU Outcome: Mobility Physical Therapy Evaluation and Yes Treatment Activity OOB with Assistance Yes WBAT No NWB Yes: NWB RUE/ LLE TTWB No Device Yes Assistance Yes Patient to be seen 5x/wk for 60-120 min/ Therex day for: Mobility Training W/C Mobility Balance Other Other Therapy Comment discharge training, discharge planning Current Mobility Outcome/Goals Improve Mobility Status Demonstrates Proper Use of Assistive Devices Progression Toward Outcome/Goals Progressing Bed Mobility Yes: independent Transfers Yes: supervision with SB or HW Gait x ft No W/C Mobility x ft Yes: independent 150 ' Up/Down Stairs No: ramp entrance recommended With HEP Yes: independent Rec Therapy- Improve/Maintain Start: 05/23/19 14:49 Freq: DAILY@699,1900 Status: Active Target: 05/24/19 Protocol: Activity Type Activity Date Activity User E-Sign Co-Sign Detail Recorded Client Recorded Date Recorded By Document 05/23/19 15:17 [id number] 05/23/19 15:17 [id number] 05/23/19 15:17 PMRU Outcome: Recreation Therapy Current Rec Ther Outcome/Goals Complete Rec Therapy Assessment Meet with Patient Regularly for Support Encourage Leisure Involvement Progression Toward Outcome/Goals Goal Initiation Safety- Improve/Maintain Start: 05/20/19 14:55 Freq: DAILY@0700,1900 Status: Active Target: 06/17/19 Protocol: Activity Type Activity Date Activity User E-Sign Co-Sign Detail Recorded Client Recorded Date Recorded By Document 05/24/19 07:00 [id number] 05/24/19 12:08 [id number] 05/24/19 07:00 PMRU Outcome: Safety Current Safety Outcome/Goals Remain Free of Injury or Harm Cooperates with Safety Measures for Least Restrictive Environment Prevent Falls/ Injury Equipment Needed Progression Toward Outcome/Goals Progressing Skin- Improve/Maintain Start: 05/20/19 16:10 Freq: DAILY@0700,1900 Status: Active Target: 06/17/19 Protocol: Activity Type Activity Date Activity User E-Sign Co-Sign Detail Recorded Client Recorded Date Recorded By Document 05/24/19 07:00 [id number] 05/24/19 12:08 [id number] 05/24/19 07:00 PMRU Outcome: Skin Skin Risk Level High Risk Skin Orders Dressing Change Multipodus Boot Heels Off Bed Skin Orders Comment Dressing changed by evening shift Current Skin Outcome/Goals Maintain/ Improve Skin Integrity Free from Pressure Injury Maintain/ Improve Wound Status Surgical Incisions Healing Progression Toward Outcome/Goals Progressing - Interdisciplinary Staff Present Auto Mechanic/Social Work Staff Present: Katy Gaxiola LMSW Nursing Staff Present: Neyda Aguirre LPN OT Staff Present: Paige Delgado PT Staff Present: Gabi Beverly Rec Therapy Staff Present: Santa Márquez TRANSFORMER REPAIRER Staff Present: Renny Streeter Medicine Note: Length of Stay: 4 weeks Anticipated Discharge Destination: Home Tentative Discharge Date: 06/21/2019 Discharged to: Home
--- NOTE | 2019-05-24 15:33 | PN ---
Progress Note Date of Service: 05/24/19 Note: JI ASHRAF was visited. Therapy notes read and reviewed. She was discussed in interdisciplinary team rounds. She is doing better and her pain is controlled. Current Medications: Active Medications Generic Name Dose Route Start Last Admin Trade Name Freq PRN Reason Stop Dose Admin Acetaminophen 650 mg 05/20/19 14:51 Tylenol Tab* PO Q6H PRN PAIN - MODERATE Al Hydrox/Mg Hydrox/Simethicone 30 ml 05/20/19 14:06 Maalox Plus* PO Q6H PRN INDIGESTION Amlodipine Besylate 5 mg 05/21/19 09:00 05/24/19 10:12 Norvasc Tab* PO 5 mg DAILY CANDIDO Administration Bisacodyl 10 mg 05/20/19 14:06 Dulcolax Supp* [place] DAILY PRN CONSTIPATION Cholecalciferol 400 unit 05/21/19 09:00 05/24/19 10:12 Vitamin D Tab* PO 400 unit DAILY CANDIDO Administration Docusate Sodium 100 mg 05/20/19 21:00 05/24/19 10:12 Colace Cap* PO 100 mg BID CANDIDO Administration Heparin Sodium (Porcine) 5,000 units 05/20/19 22:00 05/24/19 14:52 Heparin Vial(*) SUBCUT 5,000 units Q8HR CANDIDO Administration Magnesium Hydroxide 30 ml 05/20/19 14:06 Milk Of Magnesia Liq* PO Q6H PRN CONSTIPATION Multivitamins/Minerals 1 tab 05/21/19 09:00 05/24/19 10:12 Theragran/Minerals Tab* PO 1 tab DAILY CANDIDO Administration Pto - Sleep Aid ( 1 dose 05/21/19 17:58 05/23/19 22:35 Doxylamine 25 Mg) PO 1 dose BEDTIME PRN Administration SLEEP Pto - Super B Mvi 1 dose 05/22/19 09:00 05/24/19 10:13 Supplement PO Not Given DAILY CANDIDO Pto - Super C Mvi 1 dose 05/22/19 18:00 05/24/19 10:13 PO Not Given BID WITH MEALS CANDIDO Pto - Vitamin De 5,000 units 05/22/19 10:15 05/24/19 10:13 Gold 5,000 Units PO Not Given DAILY CANDIDO Pto - Inner Defense 1 cap 05/22/19 17:00 05/24/19 10:13 Supplement 1 Cap PO 1 cap 0900,1700 CANDIDO Administration Oxycodone HCl 5 mg 05/20/19 14:17 Roxycodone Tab* PO Q4H PRN PAIN - SEVERE Senna 2 tab 05/20/19 14:06 Senokot 8.6 Mg Tab* PO BEDTIME PRN CONSTIPATION Vital Signs: Vital Signs Temp Pulse Resp BP Pulse Ox 98.0 F 79 16 148/65 98 05/24/19 05:40 05/24/19 05:40 05/24/19 08:00 05/24/19 05:40 05/24/19 08:00 Exam: GENERAL: No acute distress. Alert and appropriate. LUNGS: Clear to auscultation bilaterally. HEART: Regular rate and rhythm. ABDOMEN: Active bowel sounds. Soft, nontender, nondistended. EXTREMITIES: She has some pedal edema, left greater than right. +DP/PT pulses bilaterally. Left leg brace locked at 20 degrees of flexion. Right arm in a sling. SKIN: Left leg dressings removed by nursing. Wounds clean NEUROLOGICAL EXAM: Normal sensation x3. Impaired sensation in left leg below the knee. Trace left toe flexion and otherwise 0/5 left foot/ankle. Exam of rest of LLE motor limited by restrictions. RLE and LUE motor 5/5. RUE motor 5/ 5 in hand and wrist with rest of exam limited by sling. 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 1. Status post popliteal bypass: She is to follow up with Dr. Urbano in 2 weeks in the vascular clinic at [place]. Hold on Plavix until after she has had surgery with potential skin grafting with [facility]. She has a followup with Vascular Surgery on 06/03/19 at 11:20a. 2. Left knee dislocation and right humerus fracture: Continue with non-weight bearing precautions to the left lower extremity and right upper extremity. Continue with brace on her left leg locked to 20 degrees of flexion. Range of motion and stretching of her left foot/ankle at least 5 times per day to prevent contracture. Continue with sling of the right arm. She has a followup with [facility] in [place] on 05/30/19 at 9:30 in the morning with Melanie Vaz. 3. Status post LLE fasciotomy with open wounds: Continue with moist to dry dressings b.i.d. to the left leg. Follow up with plastic surgery clinic about closure. 4. Acute blood loss anemia: stable. Follow routine labs. 5. 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 Multi Podus boot on LLE when she is in bed. 6. Acute renal failure: Cr improving. Follow routine labs. 7. Leukocytosis: WBC 11.6 on 05/21 8. Impaired mobility: PT for transfer, bed mobility, and short distance gait training using a margareth walker and wheelchair. 9. Impaired self-care: OT for ADL training and equipment evaluation. Family training as appropriate. 10. Advance directives: She is a full code. Her , Bradely Ashraf, is surrogate decision maker. 11. Vitamin D deficiency: has own supplement of 5000iu daily. 05/24/19 15:34
[2019-05-24] MEDS: Senna TAB 8.6 mg* TAB PO PRN (21:33)
[2019-05-25] MEDS: Heparin VIAL(*) 5000 UNITS/ML VIAL (FIVE THOUSAND) SUBCUT SCH ×3 (06:11→21:39)
[2019-05-25 06:17] LABS: ABS Basophils 0.1 10^3/ul (0-0.2); ABS Eosinophils 0.3 10^3/ul (0-0.6); ABS Lymphocytes 1.3 10^3/ul (1.0-4.8); ABS Neutrophils 5.2 10^3/ul (1.5-7.7); Eosinophil % 4.3 %; Hematocrit 24 % (35-47); Lymphocyte % 16.4 %; Mean Corpuscular HGB Conc 34 g/dL (31-36); Mean Corpuscular Hemoglobin 30 pg (27-31); Mean Corpuscular Volume 88 fL (80-97); Nucleated Red Blood Cells % 0.1; Platelet Count 257 10^3/uL (150-450); Red Blood Count 2.69 10^6 /uL (3.70-4.87); Red Cell Distribution Width 15 % (10-15)
[2019-05-25 06:35] LABS: Albumin 2.5 g/dL (3.2-5.2); Albumin/Globulin Ratio 1.1 (1-3); BUN/Creatinine Ratio 21.8 (8-20); Calcium 8.1 mg/dL (8.6-10.3); EGFR African American 52.7 (>60); EGFR Non-African American 43.5 (>60); Globulin 2.3 g/dL (2-4); Potassium 4.1 mmol/L (3.5-5.0); Total Bilirubin 0.5 mg/dL (0.2-1.0); Total Protein 4.8 g/dL (6.4-8.9)
[2019-05-25] MEDS: Docusate CAP* 100 MG PO SCH ×2 (09:16→21:39)
[2019-05-25] MEDS: Cholecalciferol TAB* 400 UNIT PO SCH (09:16)
[2019-05-25] MEDS: Multivitamins/Minerals TAB PO SCH (09:16)
[2019-05-25] MEDS: amLODIPine TAB* 5 MG PO SCH (09:17)
[2019-05-25] MEDS: [UNRECOGNIZED DRUG - OTHER] PO SCH ×2 (09:17→16:54)
[2019-05-25] MEDS: [UNRECOGNIZED DRUG - OTHER] PO SCH ×2 (09:18→16:54)
[2019-05-25] MEDS: [UNRECOGNIZED DRUG - OTHER] PO SCH (09:18)
[2019-05-25] MEDS: [UNRECOGNIZED DRUG - OTHER] PO SCH (09:18)
--- NOTE | 2019-05-25 20:55 | PN ---
Progress Note Date of Service: 05/25/19 Note: JI ASHRAF was visited. Nursing notes read and reviewed. She has no complaints today and thinks things are going okay overall. Had a BM today Current Medications: Active Medications Generic Name Dose Route Start Last Admin Trade Name Freq PRN Reason Stop Dose Admin Acetaminophen 650 mg 05/20/19 14:51 Tylenol Tab* PO Q6H PRN PAIN - MODERATE Al Hydrox/Mg Hydrox/Simethicone 30 ml 05/20/19 14:06 Maalox Plus* PO Q6H PRN INDIGESTION Amlodipine Besylate 5 mg 05/21/19 09:00 05/25/19 09:17 Norvasc Tab* PO 5 mg DAILY CANDIDO Administration Bisacodyl 10 mg 05/20/19 14:06 Dulcolax Supp* [place] DAILY PRN CONSTIPATION Cholecalciferol 400 unit 05/21/19 09:00 05/25/19 09:16 Vitamin D Tab* PO 400 unit DAILY CANDIDO Administration Docusate Sodium 100 mg 05/20/19 21:00 05/25/19 09:16 Colace Cap* PO 100 mg BID CANDIDO Administration Heparin Sodium (Porcine) 5,000 units 05/20/19 22:00 05/25/19 14:29 Heparin Vial(*) SUBCUT 5,000 units Q8HR CANDIDO Administration Magnesium Hydroxide 30 ml 05/20/19 14:06 Milk Of Magnesia Liq* PO Q6H PRN CONSTIPATION Multivitamins/Minerals 1 tab 05/21/19 09:00 05/25/19 09:16 Theragran/Minerals Tab* PO 1 tab DAILY CANDIDO Administration Pto - Sleep Aid ( 1 dose 05/21/19 17:58 05/23/19 22:35 Doxylamine 25 Mg) PO 1 dose BEDTIME PRN Administration SLEEP Pto - Super B Mvi 1 dose 05/22/19 09:00 05/25/19 09:18 Supplement PO 1 dose DAILY CANDIDO Administration Pto - Super C Mvi 1 dose 05/22/19 18:00 05/25/19 16:54 PO 1 dose BID WITH MEALS CANDIDO Administration Pto - Vitamin De 5,000 units 05/22/19 10:15 05/25/19 09:18 Gold 5,000 Units PO 5,000 units DAILY CANDIDO Administration Pto - Inner Defense 1 cap 05/22/19 17:00 05/25/19 16:54 Supplement 1 Cap PO 1 cap 0900,1700 CANDIDO Administration Oxycodone HCl 5 mg 05/20/19 14:17 Roxycodone Tab* PO Q4H PRN PAIN - SEVERE Senna 2 tab 05/20/19 14:06 05/24/19 21:33 Senokot 8.6 Mg Tab* PO 2 tab BEDTIME PRN Administration CONSTIPATION Vital Signs: Vital Signs Temp Pulse Resp BP Pulse Ox 98.4 F 81 16 140/74 100 05/25/19 15:52 05/25/19 15:52 05/25/19 15:52 05/25/19 15:52 05/25/19 19:47 Lab Results: Laboratory Results - last 24 hr 05/25/19 05/25/19 05/25/19 05:59 05:59 05:59 WBC 8.0 RBC 2.69 L Hgb 8.0 L Hct 24 L MCV 88 MCH 30 MCHC 34 RDW 15 Plt Count 257 MPV 8.0 Neut % (Auto) 65.1 Lymph % (Auto) 16.4 [place] % (Auto) 13.0 Eos % (Auto) 4.3 Baso % (Auto) 1.2 Absolute Neuts (auto) 5.2 Absolute Lymphs (auto) 1.3 Absolute Monos (auto) 1.0 H Absolute Eos (auto) 0.3 Absolute Basos (auto) 0.1 Absolute Nucleated RBC 0.0 Nucleated RBC % 0.1 Sodium 137 Potassium 4.1 Chloride 104 Carbon Dioxide 29 Anion Gap 4 BUN 27 H Creatinine 1.24 H Est GFR ( Amer) 52.7 Est GFR (Non-Af Amer) 43.5 BUN/Creatinine Ratio 21.8 H Glucose 110 H Calcium 8.1 L Total Bilirubin 0.50 AST 24 ALT 33 Alkaline Phosphatase 46 Total Protein 4.8 L Albumin 2.5 L Globulin 2.3 Albumin/Globulin Ratio 1.1 25-OH Vitamin D Total 14.3 L Exam: GENERAL: No acute distress. Alert and appropriate. LUNGS: Clear to auscultation bilaterally. HEART: Regular rate and rhythm. ABDOMEN: Active bowel sounds. Soft, nontender, nondistended. EXTREMITIES: She has some pedal edema, left greater than right. +DP/PT pulses bilaterally. Left leg brace locked at 20 degrees of flexion. Right arm in a sling. SKIN: Left leg dressings removed by nursing. Wounds clean NEUROLOGICAL EXAM: Normal sensation x3. Impaired sensation in left leg below the knee. Trace left toe flexion and otherwise 0/5 left foot/ankle. Exam of rest of LLE motor limited by restrictions. RLE and LUE motor 5/5. RUE motor 5/ 5 in hand and wrist with rest of exam limited by sling. 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 1. Status post popliteal bypass: She is to follow up with Dr. Urbano in 2 weeks in the vascular clinic at [place]. Hold on Plavix until after she has had surgery with potential skin grafting with the [facility]. She has a followup with Vascular Surgery on 06/03/19 at 11:20a. 2. Left knee dislocation and right humerus fracture: Continue with non-weight bearing precautions to the left lower extremity and right upper extremity. Continue with brace on her left leg locked to 20 degrees of flexion. Range of motion and stretching of her left foot/ankle at least 5 times per day to prevent contracture. Continue with sling of the right arm. She has a followup with [facility] in [place] on 05/30/19 at 9:30 in the morning with Melanie Vaz. 3. Status post LLE fasciotomy with open wounds: Continue with moist to dry dressings b.i.d. to the left leg. Follow up with plastic surgery clinic about closure. 4. Acute blood loss anemia: stable. Follow routine labs. 5. 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 Multi Podus boot on LLE when she is in bed. 6. Acute renal failure: Cr improving. Follow routine labs. 7. Leukocytosis: WBC 11.6 on 05/21 8. Impaired mobility: PT for transfer, bed mobility, and short distance gait training using a margareth walker and wheelchair. 9. Impaired self-care: OT for ADL training and equipment evaluation. Family training as appropriate. 10. Advance directives: She is a full code. Her , Bradley Ashraf, is surrogate decision maker. 11. Vitamin D deficiency: has own supplement of 5000iu daily. 05/25/19 20:55
[2019-05-26] MEDS: DOXYLAMINE PO PRN (01:59)
[2019-05-26] MEDS: [UNRECOGNIZED DRUG - OTHER] PO PRN (01:59)
[2019-05-26] MEDS: Heparin VIAL(*) 5000 UNITS/ML VIAL (FIVE THOUSAND) SUBCUT SCH ×3 (05:58→20:53)
[2019-05-26] MEDS: Cholecalciferol TAB* 400 UNIT PO SCH (07:35)
[2019-05-26] MEDS: amLODIPine TAB* 5 MG PO SCH (07:35)
[2019-05-26] MEDS: Docusate CAP* 100 MG PO SCH ×2 (07:35→20:53)
[2019-05-26] MEDS: Multivitamins/Minerals TAB PO SCH (07:36)
[2019-05-26] MEDS: [UNRECOGNIZED DRUG - OTHER] PO SCH ×2 (07:36→17:11)
[2019-05-26] MEDS: [UNRECOGNIZED DRUG - OTHER] PO SCH (07:36)
[2019-05-26] MEDS: [UNRECOGNIZED DRUG - OTHER] PO SCH (07:36)
[2019-05-26] MEDS: [UNRECOGNIZED DRUG - OTHER] PO SCH ×2 (07:37→17:11)
--- NOTE | 2019-05-26 19:22 | PN ---
Progress Note Date of Service: 05/26/19 Note: JI ASHRAF was visited. Therapy notes read and reviewed. She has no complaints other than constipation. Her left knee has been hurting a bit more. Trying to arrange plastic surgery appointment. Current Medications: Active Medications Generic Name Dose Route Start Last Admin Trade Name Freq PRN Reason Stop Dose Admin Acetaminophen 650 mg 05/20/19 14:51 Tylenol Tab* PO Q6H PRN PAIN - MODERATE Al Hydrox/Mg Hydrox/Simethicone 30 ml 05/20/19 14:06 Maalox Plus* PO Q6H PRN INDIGESTION Amlodipine Besylate 5 mg 05/21/19 09:00 05/26/19 07:35 Norvasc Tab* PO 5 mg DAILY CANDIDO Administration Bisacodyl 10 mg 05/20/19 14:06 Dulcolax Supp* [place] DAILY PRN CONSTIPATION Cholecalciferol 400 unit 05/21/19 09:00 05/26/19 07:35 Vitamin D Tab* PO 400 unit DAILY CANDIDO Administration Docusate Sodium 100 mg 05/20/19 21:00 05/26/19 07:35 Colace Cap* PO 100 mg BID CANDIDO Administration Heparin Sodium (Porcine) 5,000 units 05/20/19 22:00 05/26/19 14:01 Heparin Vial(*) SUBCUT 5,000 units Q8HR CANDIDO Administration Magnesium Hydroxide 30 ml 05/20/19 14:06 Milk Of Magnesia Liq* PO Q6H PRN CONSTIPATION Multivitamins/Minerals 1 tab 05/21/19 09:00 05/26/19 07:36 Theragran/Minerals Tab* PO 1 tab DAILY CANDIDO Administration Pto - Sleep Aid ( 1 dose 05/21/19 17:58 05/26/19 01:59 Doxylamine 25 Mg) PO 1 dose BEDTIME PRN Administration SLEEP Pto - Super C Mvi 1 dose 05/22/19 18:00 05/26/19 17:11 PO 1 dose BID WITH MEALS CANDIDO Administration Pto - Inner Defense 1 cap 05/22/19 17:00 05/26/19 17:11 Supplement 1 Cap PO 1 cap 0900,1700 CANDIDO Administration Pto - Vitamin De 5,000 units 05/27/19 17:00 Gold 5,000 Units PO 1700 CANDIDO Pto - Super B Mvi 1 dose 05/27/19 17:00 Supplement PO 1700 CANDIDO Oxycodone HCl 5 mg 05/20/19 14:17 Roxycodone Tab* PO Q4H PRN PAIN - SEVERE Polyethylene Glycol/Electrolytes 17 gm 05/26/19 21:00 Miralax* PO 2100 CANDIDO Senna 2 tab 05/20/19 14:06 05/24/19 21:33 Senokot 8.6 Mg Tab* PO 2 tab BEDTIME PRN Administration CONSTIPATION Vital Signs: Vital Signs Temp Pulse Resp BP Pulse Ox 98.5 F 83 18 158/67 100 05/26/19 15:58 05/26/19 15:58 05/26/19 15:58 05/26/19 15:58 05/26/19 15:58 Exam: GENERAL: No acute distress. Alert and appropriate. LUNGS: Clear to auscultation bilaterally. HEART: Regular rate and rhythm. ABDOMEN: Active bowel sounds. Soft, nontender, nondistended. EXTREMITIES: She has some pedal edema, left greater than right. +DP/PT pulses bilaterally. Left leg brace locked at 20 degrees of flexion. Right arm in a sling. SKIN: Left leg dressings changed by nursing. NEUROLOGICAL EXAM: Normal sensation x3. Impaired sensation in left leg below the knee. Trace left toe flexion and otherwise 0/5 left foot/ankle. Exam of rest of LLE motor limited by restrictions. RLE and LUE motor 5/5. RUE motor 5/ 5 in hand and wrist with rest of exam limited by sling. 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 1. Status post popliteal bypass: She is to follow up with Dr. Urbano in 2 weeks in the vascular clinic at [place]. Hold on Plavix until after she has had surgery with potential skin grafting with the [facility]. She has a followup with Vascular Surgery on 06/03/19 at 11:20a. 2. Left knee dislocation and right humerus fracture: Continue with non-weight bearing precautions to the left lower extremity and right upper extremity. Continue with brace on her left leg locked to 20 degrees of flexion. Range of motion and stretching of her left foot/ankle at least 5 times per day to prevent contracture. Continue with sling of the right arm. She has a followup with [facility] in [place] on 05/30/19 at 9:30 in the morning with Melanie Vaz. 3. Status post LLE fasciotomy with open wounds: Continue with moist to dry dressings b.i.d. to the left leg. Follow up with plastic surgery clinic about closure. 4. Acute blood loss anemia: stable. Follow routine labs. 5. 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 Multi Podus boot on LLE when she is in bed. 6. Acute renal failure: Cr improving. Follow routine labs. 7. Leukocytosis: WBC 8.0 on 05/25/19 8. Impaired mobility: PT for transfer, bed mobility, and short distance gait training using a margareth walker and wheelchair. 9. Impaired self-care: OT for ADL training and equipment evaluation. Family training as appropriate. 10. Advance directives: She is a full code. Her , Bradley Ashraf, is surrogate decision maker. 11. Vitamin D deficiency: has own supplement of 5000iu daily. 05/26/19 19:22 05/26/19 19:23
[2019-05-26] MEDS: Polyethylene Glycol 3350* 17 GM PACKET PO SCH (20:52)
[2019-05-27] MEDS: [UNRECOGNIZED DRUG - OTHER] PO PRN (00:02)
[2019-05-27] MEDS: DOXYLAMINE PO PRN (00:02)
[2019-05-27] MEDS: Heparin VIAL(*) 5000 UNITS/ML VIAL (FIVE THOUSAND) SUBCUT SCH ×3 (05:51→22:21)
[2019-05-27] MEDS: amLODIPine TAB* 5 MG PO SCH (11:54)
[2019-05-27] MEDS: [UNRECOGNIZED DRUG - OTHER] PO SCH ×2 (11:54→17:22)
[2019-05-27] MEDS: Cholecalciferol TAB* 400 UNIT PO SCH (11:55)
[2019-05-27] MEDS: Multivitamins/Minerals TAB PO SCH (11:55)
[2019-05-27] MEDS: Docusate CAP* 100 MG PO SCH ×2 (11:56→22:18)
[2019-05-27] MEDS: [UNRECOGNIZED DRUG - OTHER] PO SCH ×2 (11:57→17:19)
[2019-05-27] MEDS: [UNRECOGNIZED DRUG - OTHER] PO SCH (17:22)
[2019-05-27] MEDS: [UNRECOGNIZED DRUG - OTHER] PO SCH (17:22)
--- NOTE | 2019-05-27 20:53 | PN ---
Progress Note Date of Service: 05/27/19 Note: JI ASHRAF was visited. Therapy notes read and reviewed. A little constipated. On routine Miralax. Otherwise no complaints Current Medications: Active Medications Generic Name Dose Route Start Last Admin Trade Name Freq PRN Reason Stop Dose Admin Acetaminophen 650 mg 05/20/19 14:51 Tylenol Tab* PO Q6H PRN PAIN - MODERATE Al Hydrox/Mg Hydrox/Simethicone 30 ml 05/20/19 14:06 Maalox Plus* PO Q6H PRN INDIGESTION Amlodipine Besylate 5 mg 05/21/19 09:00 05/27/19 11:54 Norvasc Tab* PO 5 mg DAILY CANDIDO Administration Bisacodyl 10 mg 05/20/19 14:06 Dulcolax Supp* [place] DAILY PRN CONSTIPATION Cholecalciferol 400 unit 05/21/19 09:00 05/27/19 11:55 Vitamin D Tab* PO 400 unit DAILY CANDIDO Administration Docusate Sodium 100 mg 05/20/19 21:00 05/27/19 11:56 Colace Cap* PO 100 mg BID CANDIDO Administration Heparin Sodium (Porcine) 5,000 units 05/20/19 22:00 05/27/19 13:08 Heparin Vial(*) SUBCUT 5,000 units Q8HR CANDIDO Administration Magnesium Hydroxide 30 ml 05/20/19 14:06 Milk Of Magnesia Liq* PO Q6H PRN CONSTIPATION Multivitamins/Minerals 1 tab 05/21/19 09:00 05/27/19 11:55 Theragran/Minerals Tab* PO 1 tab DAILY CANDIDO Administration Pto - Sleep Aid ( 1 dose 05/21/19 17:58 05/27/19 00:02 Doxylamine 25 Mg) PO 1 dose BEDTIME PRN Administration SLEEP Pto - Super C Mvi 1 dose 05/22/19 18:00 05/27/19 17:19 PO 1 dose BID WITH MEALS CANDIDO Administration Pto - Inner Defense 1 cap 05/22/19 17:00 05/27/19 17:22 Supplement 1 Cap PO 1 cap 0900,1700 CANDIDO Administration Pto - Vitamin De 5,000 units 05/27/19 17:00 05/27/19 17:22 Gold 5,000 Units PO 5,000 units 1700 CANDIDO Administration Pto - Super B Mvi 1 dose 05/27/19 17:00 05/27/19 17:22 Supplement PO 1 dose 1700 CANDIDO Administration Oxycodone HCl 5 mg 05/20/19 14:17 Roxycodone Tab* PO Q4H PRN PAIN - SEVERE Polyethylene Glycol/Electrolytes 17 gm 05/26/19 21:00 05/26/19 20:52 Miralax* PO 17 gm BEDTIME CANDIDO Administration Senna 2 tab 05/20/19 14:06 05/24/19 21:33 Senokot 8.6 Mg Tab* PO 2 tab BEDTIME PRN Administration CONSTIPATION Vital Signs: Vital Signs Temp Pulse Resp BP Pulse Ox 98.2 F 82 12 139/70 99 05/27/19 15:40 05/27/19 15:40 05/27/19 08:00 05/27/19 15:40 05/27/19 15:40 Exam: GENERAL: No acute distress. Alert and appropriate. LUNGS: Clear to auscultation bilaterally. HEART: Regular rate and rhythm. ABDOMEN: Active bowel sounds. Soft, nontender, nondistended. EXTREMITIES: She has some pedal edema, left greater than right. +DP/PT pulses bilaterally. Left leg brace locked at 20 degrees of flexion. Right arm in a sling. SKIN: Left leg dressings changed by nursing. NEUROLOGICAL EXAM: Normal sensation x3. Impaired sensation in left leg below the knee. Trace left toe flexion and otherwise 0/5 left foot/ankle. Exam of rest of LLE motor limited by restrictions. RLE and LUE motor 5/5. RUE motor 5/ 5 in hand and wrist with rest of exam limited by sling. 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 1. Status post popliteal bypass: She is to follow up with Dr. Urbano in 2 weeks in the vascular clinic at [place]. Hold on Plavix until after she has had surgery with potential skin grafting with the [facility]. She has a followup with Vascular Surgery on 06/03/19 at 11:20a. 2. Left knee dislocation and right humerus fracture: Continue with non-weight bearing precautions to the left lower extremity and right upper extremity. Continue with brace on her left leg locked to 20 degrees of flexion. Range of motion and stretching of her left foot/ankle at least 5 times per day to prevent contracture. Continue with sling of the right arm. She has a followup with [facility] in [place] on 05/30/19 at 9:30 in the morning with Melanie Vaz. 3. Status post LLE fasciotomy with open wounds: Continue with moist to dry dressings b.i.d. to the left leg. Follow up with plastic surgery clinic about closure. 4. Acute blood loss anemia: stable. Follow routine labs. 5. 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 Multi Podus boot on LLE when she is in bed. 6. Acute renal failure: Cr improving. Follow routine labs. 7. Leukocytosis: WBC 8.0 on 05/25/19 8. Impaired mobility: PT for transfer, bed mobility, and short distance gait training using a margareth walker and wheelchair. 9. Impaired self-care: OT for ADL training and equipment evaluation. Family training as appropriate. 10. Advance directives: She is a full code. Her , Bradley Ashraf, is surrogate decision maker. 11. Vitamin D deficiency: has own supplement of 5000iu daily. 05/27/19 20:54
[2019-05-27] MEDS: Polyethylene Glycol 3350* 17 GM PACKET PO SCH (22:18)
[2019-05-28] MEDS: Heparin VIAL(*) 5000 UNITS/ML VIAL (FIVE THOUSAND) SUBCUT SCH ×3 (06:15→21:18)
[2019-05-28] MEDS: Multivitamins/Minerals TAB PO SCH (07:55)
[2019-05-28] MEDS: [UNRECOGNIZED DRUG - OTHER] PO SCH ×2 (07:55→17:01)
[2019-05-28] MEDS: amLODIPine TAB* 5 MG PO SCH (07:55)
[2019-05-28] MEDS: Docusate CAP* 100 MG PO SCH ×2 (07:55→21:17)
[2019-05-28] MEDS: Cholecalciferol TAB* 400 UNIT PO SCH (07:55)
[2019-05-28] MEDS: [UNRECOGNIZED DRUG - OTHER] PO SCH ×2 (07:56→17:02)
[2019-05-28] MEDS: [UNRECOGNIZED DRUG - OTHER] PO SCH (17:02)
[2019-05-28] MEDS: [UNRECOGNIZED DRUG - OTHER] PO SCH (17:02)
--- NOTE | 2019-05-28 17:07 | PN ---
Progress Note Date of Service: 05/28/19 Note: JI ASHRAF was visited. Therapy notes read and reviewed. She was able to have a bowel movement today and feels better. Otherwise, no complaints Current Medications: Active Medications Generic Name Dose Route Start Last Admin Trade Name Freq PRN Reason Stop Dose Admin Acetaminophen 650 mg 05/20/19 14:51 Tylenol Tab* PO Q6H PRN PAIN - MODERATE Al Hydrox/Mg Hydrox/Simethicone 30 ml 05/20/19 14:06 Maalox Plus* PO Q6H PRN INDIGESTION Amlodipine Besylate 5 mg 05/21/19 09:00 05/28/19 07:55 Norvasc Tab* PO 5 mg DAILY CANDIDO Administration Bisacodyl 10 mg 05/20/19 14:06 05/27/19 21:09 Dulcolax Supp* [place] 10 mg DAILY PRN Administration CONSTIPATION Cholecalciferol 400 unit 05/21/19 09:00 05/28/19 07:55 Vitamin D Tab* PO 400 unit DAILY CANDIDO Administration Docusate Sodium 100 mg 05/20/19 21:00 05/28/19 07:55 Colace Cap* PO 100 mg BID CANDIDO Administration Heparin Sodium (Porcine) 5,000 units 05/20/19 22:00 05/28/19 14:14 Heparin Vial(*) SUBCUT 5,000 units Q8HR CANDIDO Administration Magnesium Hydroxide 30 ml 05/20/19 14:06 Milk Of Magnesia Liq* PO Q6H PRN CONSTIPATION Multivitamins/Minerals 1 tab 05/21/19 09:00 05/28/19 07:55 Theragran/Minerals Tab* PO 1 tab DAILY CANDIDO Administration Pto - Sleep Aid ( 1 dose 05/21/19 17:58 05/27/19 00:02 Doxylamine 25 Mg) PO 1 dose BEDTIME PRN Administration SLEEP Pto - Super C Mvi 1 dose 05/22/19 18:00 05/28/19 17:01 PO 1 dose BID WITH MEALS CANDIDO Administration Pto - Inner Defense 1 cap 05/22/19 17:00 05/28/19 17:02 Supplement 1 Cap PO 1 cap 0900,1700 CANDIDO Administration Pto - Vitamin De 5,000 units 05/27/19 17:00 05/28/19 17:02 Gold 5,000 Units PO 5,000 units 1700 CANDIDO Administration Pto - Super B Mvi 1 dose 05/27/19 17:00 05/28/19 17:02 Supplement PO 1 dose 1700 CANDIDO Administration Oxycodone HCl 5 mg 05/20/19 14:17 Roxycodone Tab* PO Q4H PRN PAIN - SEVERE Polyethylene Glycol/Electrolytes 17 gm 05/26/19 21:00 05/27/19 22:18 Miralax* PO 17 gm BEDTIME CANDIDO Administration Senna 2 tab 05/20/19 14:06 05/24/19 21:33 Senokot 8.6 Mg Tab* PO 2 tab BEDTIME PRN Administration CONSTIPATION Vital Signs: Vital Signs Temp Pulse Resp BP Pulse Ox 98.2 F 76 18 150/74 100 05/28/19 15:26 05/28/19 15:26 05/28/19 15:26 05/28/19 15:26 05/28/19 15:26 Exam: GENERAL: No acute distress. Alert and appropriate. LUNGS: Clear to auscultation bilaterally. HEART: Regular rate and rhythm. ABDOMEN: Active bowel sounds. Soft, nontender, nondistended. EXTREMITIES: She has some pedal edema, left greater than right. +DP/PT pulses bilaterally. Left leg brace locked at 20 degrees of flexion. Right arm in a sling. SKIN: Left leg dressings changed by nursing. NEUROLOGICAL EXAM: Normal sensation x3. Impaired sensation in left leg below the knee. Trace left toe flexion and otherwise 0/5 left foot/ankle. Exam of rest of LLE motor limited by restrictions. RLE and LUE motor 5/5. RUE motor 5/ 5 in hand and wrist with rest of exam limited by sling. 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 1. Status post popliteal bypass: She is to follow up with Dr. Urbano in 2 weeks in the vascular clinic at [facility]. Hold on Plavix until after she has had surgery with potential skin grafting with [facility]. She has a followup with Vascular Surgery on 06/03/19 at 11:20a. 2. Left knee dislocation and right humerus fracture: Continue with non-weight bearing precautions to the left lower extremity and right upper extremity. Continue with brace on her left leg locked to 20 degrees of flexion. Range of motion and stretching of her left foot/ankle at least 5 times per day to prevent contracture. Continue with sling of the right arm. She has a followup with [facility] in [place] on 05/30/19 at 9:30 in the morning with Melanie Vaz. 3. Status post LLE fasciotomy with open wounds: Continue with moist to dry dressings b.i.d. to the left leg. Follow up with plastic surgery clinic about closure. 4. Acute blood loss anemia: stable. Follow routine labs. 5. 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 Multi Podus boot on LLE when she is in bed. 6. Acute renal failure: Cr improving. Follow routine labs. 7. Impaired mobility: PT for transfer, bed mobility, and short distance gait training using a margareth walker and wheelchair. 8. Impaired self-care: OT for ADL training and equipment evaluation. Family training as appropriate. 9. Advance directives: She is a full code. Her , Bradley Ashraf, is surrogate decision maker. 10. Vitamin D deficiency: has own supplement of 5000iu daily. 05/28/19 17:07
[2019-05-28] MEDS: Polyethylene Glycol 3350* 17 GM PACKET PO SCH (21:13)
[2019-05-28] MEDS: Senna TAB 8.6 mg* TAB PO PRN (21:17)
[2019-05-29] MEDS: DOXYLAMINE PO PRN (01:19)
[2019-05-29] MEDS: [UNRECOGNIZED DRUG - OTHER] PO PRN (01:19)
[2019-05-29] MEDS: Heparin VIAL(*) 5000 UNITS/ML VIAL (FIVE THOUSAND) SUBCUT SCH ×3 (06:07→21:39)
[2019-05-29] MEDS: [UNRECOGNIZED DRUG - OTHER] PO SCH ×2 (09:05→17:02)
[2019-05-29] MEDS: [UNRECOGNIZED DRUG - OTHER] PO SCH ×2 (09:05→17:03)
[2019-05-29] MEDS: Docusate CAP* 100 MG PO SCH ×2 (09:05→21:39)
[2019-05-29] MEDS: Multivitamins/Minerals TAB PO SCH (09:05)
[2019-05-29] MEDS: amLODIPine TAB* 5 MG PO SCH (09:05)
[2019-05-29] MEDS: [UNRECOGNIZED DRUG - OTHER] PO SCH (17:03)
--- NOTE | 2019-05-29 17:04 | PN ---
Progress Note Date of Service: 05/29/19 Note: JI ASHRAF was visited. Nursing notes read and reviewed. She has no complaints. She has little pain. Current Medications: Active Medications Generic Name Dose Route Start Last Admin Trade Name Freq PRN Reason Stop Dose Admin Acetaminophen 650 mg 05/20/19 14:51 Tylenol Tab* PO Q6H PRN PAIN - MODERATE Al Hydrox/Mg Hydrox/Simethicone 30 ml 05/20/19 14:06 Maalox Plus* PO Q6H PRN INDIGESTION Amlodipine Besylate 5 mg 05/21/19 09:00 05/29/19 09:05 Norvasc Tab* PO 5 mg DAILY CANDIDO Administration Bisacodyl 10 mg 05/20/19 14:06 05/27/19 21:09 Dulcolax Supp* [place] 10 mg DAILY PRN Administration CONSTIPATION Docusate Sodium 100 mg 05/20/19 21:00 05/29/19 09:05 Colace Cap* PO 100 mg BID CANDIDO Administration Heparin Sodium (Porcine) 5,000 units 05/20/19 22:00 05/29/19 14:47 Heparin Vial(*) SUBCUT 5,000 units Q8HR CANDIDO Administration Magnesium Hydroxide 30 ml 05/20/19 14:06 Milk Of Magnesia Liq* PO Q6H PRN CONSTIPATION Multivitamins/Minerals 1 tab 05/21/19 09:00 05/29/19 09:05 Theragran/Minerals Tab* PO 1 tab DAILY CANDIDO Administration Pto - Sleep Aid ( 1 dose 05/21/19 17:58 05/29/19 01:19 Doxylamine 25 Mg) PO 1 dose BEDTIME PRN Administration SLEEP Pto - Super C Mvi 1 dose 05/22/19 18:00 05/29/19 09:05 PO 1 dose BID WITH MEALS CANDIDO Administration Pto - Inner Defense 1 cap 05/22/19 17:00 05/29/19 09:05 Supplement 1 Cap PO 1 cap 0900,1700 CANDIDO Administration Pto - Vitamin De 5,000 units 05/27/19 17:00 05/28/19 17:02 Gold 5,000 Units PO 5,000 units 1700 CANDIDO Administration Pto - Super B Mvi 1 dose 05/27/19 17:00 05/28/19 17:02 Supplement PO 1 dose 1700 CANDIDO Administration Oxycodone HCl 5 mg 05/20/19 14:17 Roxycodone Tab* PO Q4H PRN PAIN - SEVERE Polyethylene Glycol/Electrolytes 17 gm 05/26/19 21:00 05/28/19 21:13 Miralax* PO Not Given BEDTIME CANDIDO Senna 2 tab 05/20/19 14:06 05/28/19 21:17 Senokot 8.6 Mg Tab* PO 2 tab BEDTIME PRN Administration CONSTIPATION Vital Signs: Vital Signs Temp Pulse Resp BP Pulse Ox 98.2 F 75 18 153/69 99 05/29/19 15:29 05/29/19 15:29 05/29/19 15:29 05/29/19 15:29 05/29/19 15:29 Exam: GENERAL: No acute distress. Alert and appropriate. LUNGS: Clear to auscultation bilaterally. HEART: Regular rate and rhythm. ABDOMEN: Active bowel sounds. Soft, nontender, nondistended. EXTREMITIES: She has some pedal edema, left greater than right. +DP/PT pulses bilaterally. Left leg brace locked at 20 degrees of flexion. Right arm in a sling. SKIN: Left leg dressings changed by nursing. NEUROLOGICAL EXAM: Normal sensation x3. Impaired sensation in left leg below the knee. Trace left toe flexion and otherwise 0/5 left foot/ankle. Exam of rest of LLE motor limited by restrictions. RLE and LUE motor 5/5. RUE motor 5/ 5 in hand and wrist with rest of exam limited by sling. 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 1. Status post popliteal bypass: She is to follow up with Dr. Urbano in 2 weeks in the vascular clinic at [facility]. Hold on Plavix until after she has had surgery with potential skin grafting with the [facility]. She has a followup with Vascular Surgery on 06/03/19 at 11:20a. 2. Left knee dislocation and right humerus fracture: Continue with non-weight bearing precautions to the left lower extremity and right upper extremity. Continue with brace on her left leg locked to 20 degrees of flexion. Range of motion and stretching of her left foot/ankle at least 5 times per day to prevent contracture. Continue with sling of the right arm. She has a followup with [facility] in [place] on 05/30/19 at 9:30 in the morning with Melanie Vaz. 3. Status post LLE fasciotomy with open wounds: Continue with moist to dry dressings b.i.d. to the left leg. Follow up with plastic surgery clinic about closure. 4. Acute blood loss anemia: stable. Follow routine labs. 5. 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 Multi Podus boot on LLE when she is in bed. 6. Acute renal failure: Cr improving. Follow routine labs. 7. Impaired mobility: PT for transfer, bed mobility, and short distance gait training using a margareth walker and wheelchair. 8. Impaired self-care: OT for ADL training and equipment evaluation. Family training as appropriate. 9. Advance directives: She is a full code. Her , Bradley Ashraf, is surrogate decision maker. 10. Vitamin D deficiency: has own supplement of 5000iu daily. 05/29/19 17:04
[2019-05-29] MEDS: [UNRECOGNIZED DRUG - OTHER] PO SCH (17:05)
[2019-05-29] MEDS: Senna TAB 8.6 mg* TAB PO PRN (21:39)
[2019-05-29] MEDS: Polyethylene Glycol 3350* 17 GM PACKET PO SCH (21:39)
[2019-05-30] MEDS: Heparin VIAL(*) 5000 UNITS/ML VIAL (FIVE THOUSAND) SUBCUT SCH ×3 (06:19→21:36)
[2019-05-30] MEDS: [UNRECOGNIZED DRUG - OTHER] PO SCH ×2 (08:02→16:55)
[2019-05-30] MEDS: Docusate CAP* 100 MG PO SCH ×2 (08:03→21:36)
[2019-05-30] MEDS: amLODIPine TAB* 5 MG PO SCH (08:03)
[2019-05-30] MEDS: [UNRECOGNIZED DRUG - OTHER] PO SCH ×2 (08:03→17:05)
[2019-05-30] MEDS: Multivitamins/Minerals TAB PO SCH (08:03)
[2019-05-30] MEDS: Ondansetron ODT TAB* 4 MG PO PRN (16:01)
[2019-05-30] MEDS: [UNRECOGNIZED DRUG - OTHER] PO SCH (17:04)
[2019-05-30] MEDS: [UNRECOGNIZED DRUG - OTHER] PO SCH (17:06)
--- NOTE | 2019-05-30 18:53 | PN ---
Progress Note Date of Service: 05/30/19 Note: JI ASHRAF was visited. Therapy notes read and reviewed. She has no complaints. A small pustule on her leg in area under the brace has developed. Wounds look clean Current Medications: Active Medications Generic Name Dose Route Start Last Admin Trade Name Freq PRN Reason Stop Dose Admin Acetaminophen 650 mg 05/20/19 14:51 Tylenol Tab* PO Q6H PRN PAIN - MODERATE Al Hydrox/Mg Hydrox/Simethicone 30 ml 05/20/19 14:06 05/30/19 13:13 Maalox Plus* PO 30 ml Q6H PRN Administration INDIGESTION Amlodipine Besylate 5 mg 05/21/19 09:00 05/30/19 08:03 Norvasc Tab* PO 5 mg DAILY CANDIDO Administration Bisacodyl 10 mg 05/20/19 14:06 05/27/19 21:09 Dulcolax Supp* [place] 10 mg DAILY PRN Administration CONSTIPATION Docusate Sodium 100 mg 05/20/19 21:00 05/30/19 08:03 Colace Cap* PO 100 mg BID CANDIDO Administration Heparin Sodium (Porcine) 5,000 units 05/20/19 22:00 05/30/19 13:53 Heparin Vial(*) SUBCUT 5,000 units Q8HR CANDIDO Administration Magnesium Hydroxide 30 ml 05/20/19 14:06 Milk Of Magnesia Liq* PO Q6H PRN CONSTIPATION Multivitamins/Minerals 1 tab 05/21/19 09:00 05/30/19 08:03 Theragran/Minerals Tab* PO 1 tab DAILY CANDIDO Administration Pto - Sleep Aid ( 1 dose 05/21/19 17:58 05/29/19 01:19 Doxylamine 25 Mg) PO 1 dose BEDTIME PRN Administration SLEEP Pto - Super C Mvi 1 dose 05/22/19 18:00 05/30/19 16:55 PO 1 dose BID WITH MEALS CANDIDO Administration Pto - Inner Defense 1 cap 05/22/19 17:00 05/30/19 17:05 Supplement 1 Cap PO 1 cap 0900,1700 CANDIDO Administration Pto - Vitamin De 5,000 units 05/27/19 17:00 05/30/19 17:04 Gold 5,000 Units PO 5,000 units 1700 CANDIDO Administration Pto - Super B Mvi 1 dose 05/27/19 17:00 05/30/19 17:06 Supplement PO 1 dose 1700 CANDIDO Administration Ondansetron HCl 4 mg 05/30/19 14:54 05/30/19 16:01 Zofran Odt Tab* PO 4 mg Q6H PRN Administration NAUSEA Oxycodone HCl 5 mg 05/20/19 14:17 Roxycodone Tab* PO Q4H PRN PAIN - SEVERE Polyethylene Glycol/Electrolytes 17 gm 05/26/19 21:00 05/29/19 21:39 Miralax* PO Not Given BEDTIME CANDIDO Senna 2 tab 05/20/19 14:06 05/29/19 21:39 Senokot 8.6 Mg Tab* PO 2 tab BEDTIME PRN Administration CONSTIPATION Vital Signs: Vital Signs Temp Pulse Resp BP Pulse Ox 98.1 F 82 18 143/72 96 05/30/19 15:44 05/30/19 15:44 05/30/19 16:32 05/30/19 15:44 05/30/19 16:32 Exam: GENERAL: No acute distress. Alert and appropriate. LUNGS: Clear to auscultation bilaterally. HEART: Regular rate and rhythm. ABDOMEN: Active bowel sounds. Soft, nontender, nondistended. EXTREMITIES: She has some pedal edema, left greater than right. +DP/PT pulses bilaterally. Left leg brace locked at 20 degrees of flexion. Right arm in a sling. SKIN: Left leg dressings changed by nursing, wound edges look clean. NEUROLOGICAL EXAM: Normal sensation x3. Impaired sensation in left leg below the knee. Trace left toe flexion and otherwise 0/5 left foot/ankle. Exam of rest of LLE motor limited by restrictions. RLE and LUE motor 5/5. RUE motor 5/ 5 in hand and wrist with rest of exam limited by sling. 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 1. Status post popliteal bypass: She is to follow up with Dr. Urbano in 2 weeks in the vascular clinic at [facility]. Hold on Plavix until after she has had surgery with potential skin grafting with the [facility]. She has a followup with Vascular Surgery on 06/03/19 at 11:20a. 2. Left knee dislocation and right humerus fracture: Continue with non-weight bearing precautions to the left lower extremity and right upper extremity. Continue with brace on her left leg locked to 20 degrees of flexion. Range of motion and stretching of her left foot/ankle at least 5 times per day to prevent contracture. Continue with sling of the right arm. She has a followup with [facility] in [place] on 05/30/19 at 9:30 in the morning with Melanie Vaz. 3. Status post LLE fasciotomy with open wounds: Continue with moist to dry dressings b.i.d. to the left leg. Follow up with plastic surgery clinic about closure. 4. Acute blood loss anemia: stable. Follow routine labs. 5. 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 Multi Podus boot on LLE when she is in bed. 6. Acute renal failure: Cr improving. Follow routine labs. 7. Impaired mobility: PT for transfer, bed mobility, and short distance gait training using a margareth walker and wheelchair. 8. Impaired self-care: OT for ADL training and equipment evaluation. Family training as appropriate. 9. Advance directives: She is a full code. Her , Bradley Ashraf, is surrogate decision maker. 10. Vitamin D deficiency: has own supplement of 5000iu daily. 05/30/19 19:17
[2019-05-30] MEDS: Senna TAB 8.6 mg* TAB PO PRN (21:36)
[2019-05-30] MEDS: Polyethylene Glycol 3350* 17 GM PACKET PO SCH (21:36)
[2019-05-30] MEDS: [UNRECOGNIZED DRUG - OTHER] PO PRN (22:08)
[2019-05-30] MEDS: DOXYLAMINE PO PRN (22:08)
[2019-05-31] MEDS: Heparin VIAL(*) 5000 UNITS/ML VIAL (FIVE THOUSAND) SUBCUT SCH ×3 (05:40→21:29)
[2019-05-31] MEDS: Docusate CAP* 100 MG PO SCH ×2 (08:57→21:29)
[2019-05-31] MEDS: amLODIPine TAB* 5 MG PO SCH (08:57)
[2019-05-31] MEDS: Multivitamins/Minerals TAB PO SCH (08:57)
[2019-05-31] MEDS: [UNRECOGNIZED DRUG - OTHER] PO SCH ×2 (09:00→17:08)
[2019-05-31] MEDS: [UNRECOGNIZED DRUG - OTHER] PO SCH ×2 (09:00→17:08)
--- NOTE | 2019-05-31 12:56 | PMRUTEAM ---
PMRU: Team Meeting Current Status: Physical Therapy: Current Status Current Rolling Status Supervision/Touching Current Supine <-> Sit Status Partial/Moderate Current Sit <-> Stand Status Dependent Current Bed <-> Chair Status Partial/Moderate Transfer/Bed Mobility Slide Board Recommended Devices Current Picking Up Object Not attempted Status Current Car Transfer Status Dependent Current Ambulation Assistance Not attempted Status Manual Wheelchair Control/ Right UE Technique Current Wheelchair Propulsion Supervision/Touching Ability Status Wheelchair Distance (ft) 80' Current Stair Climbing Status Not attempted Current Curb Assistance Status Not attempted Objective Comments Pt is better able to propel herself better wearing croc shoe on R le. Occupational Therapy: Current Status Current Upper Body Dressing Partial/Moderate Status Current Lower Body Dressing Dependent Status Current Footwear Status Dependent Current Bathing Status Partial/Moderate Current Grooming Status Partial/Moderate Current Toileting Status Substantial/Maximal Current Toilet Transfer Status Partial/Moderate Current Eating Status Setup or Clean-up Assist Nursing: Current Status Skin Deviations [Left Knee] Abrasion Skin Deviations [Left Lower Abrasion Arm] Skin Deviations [Right Arm] Bruise Skin Deviations [Left Lower Incision Leg] Skin Deviations [Left Upper Incision Thigh] Skin Deviations [Right Groin] Previous Access Point Skin Deviations [Coccyx] Rash Skin Deviation Description [ knee immoblizer in place Left Knee] Skin Deviation Description [ in sling Right Arm] Skin Deviation Description [ fasciotomy x2. granulation tissue. NS W-D applied Left Lower Leg] Skin Deviation Description [ drsgs cdi Left Upper Thigh] Skin Deviation Description [ scabs Right Groin] Skin Deviation Description [ slid---cream was applied Coccyx] Bladder Current Status using bedpan to void. dribbling Bowel Current Status colace given. bm this am Nutrition Current Status appetite good Medication Current Status no pain meds given Rec Therapy: Current Status Summary of Assessment and Recreation therapy assessment complete and pt is Clinical Impression aware of services. Pt is open to continued leisure visits, pet therapy, and is participating in independent leisure interests in her room. Treatment Goals Pt will engage in leisure activities while on the unit as tolerated Treatment Plan Provide recreation therapy services and encourge involvement Social Work: Current Status Discharge Plan return home with home care svs and family support Potential for Family Training TBD, pt's works throughout the day and other family members live out of the area Anticipated Discharge Home Destination Discharge With home care svs and limited family support Nutrition: Current Status Monitoring Pt continues on regular unrestricted diet with good intake noted at meals; avg 87% past three days per EMR. Pt is aware of need for high protein for wound healing s/p fasciotomy with open wounds to LLE. She declines other snacks at this time, though aware of availability of sandwiches, cottage cheese, peanut butter, and other high- protein snacks. No GI s/sx indicated; regular BMs. Labs all appear to be improving. Vit D level low; pt taking own suppl of 5000 IU; MD aware. Will cont to follow progress, intake, labs. [ End ] Goals: Physical Therapy: Goals Goals to Be Accomplished in ( 21-28 Days) Goal: Rolling Assistance Independent Goal Supine <-> Sit Status Independent Goal Sit <-> Stand Status Supervision/Touching Goal Bed <-> Chair Status Supervision/Touching Transfer/Bed Mobility Slide Board Recommended Devices Goal: Picking Up Object Supervision/Touching Goal: Car Transfer Status Partial/Moderate Goal: Ambulation Assistance Not attempted Goal: Wheelchair Propulsion Independent Ability Wheelchair Distance (ft) 100' R le with croc shoe on and L ue. Goal: Stairs Assistance Not attempted Goal: Curb Assistance Not attempted Goal: Home Exercise Program Independent Assistance Occupational Therapy: Goals Goals to be Completed in (Days 21-28 days ) Goal Upper Body Dressing Independent Routine Goal Lower Body Dressing Independent Routine Goal Footwear Status Independent Goal Bathing Routine (OT) Independent Goal Grooming Routine Independent Goal Toilet Hygiene and Independent Clothing Management Routine Goal Toilet Transfer Routine Independent Goal Functional Transfers for Independent ADL Goal Feeding Routine Independent Goal Light Housekeeping Tasks Independent Nutrition: Goals Intervention Goals 1. adequate intake to support lean body mass and LLE wound healing without add'l wt gain 2. maintain serum electrolytes WNL 3. achieve and maintain renal parameters WNL 4. regulation of bowel pattern; no c/o constipation (or diarrhea) Social Work: Goals Discharge Plan return home with home care svs and family support Potential for Family Training TBD, pt's works throughout the day and other family members live out of the area Anticipated Discharge Home Destination Discharge With home care svs and limited family support Nursing: Goals Bladder Goal supervision Bowel Goal supervision Nutrition Goal 100% of all meals consumed Medication Goal independent Care Plan: Care Plan ADL's - Improve/Maintain Start: 05/20/19 16:10 Freq: DAILY@0700,1900 Status: Active Target: 05/21/19 Protocol: Activity Type Activity Date Activity User E-Sign Co-Sign Detail Recorded Client Recorded Date Recorded By Document 05/31/19 10:50 [id number] [id number] 05/31/19 10:50 [id number] 05/31/19 10:50 PMRU Outcome: ADL's/ADL Transfers Orders/Interventions Occupational Therapy Evaluation & Treatment Communication Tool in Patient Room Device Yes Address Deficits Secondary To: s/p fall with left knee dislocation and R humerus fx Patient to receive OT 5x/wk for 60-120 Therex min/day Self Care Management Group Therapy UE/LE ADL's with Assist Yes ADL Transfers with Assist Yes Toileting: Transfers,Clothing Management Yes ,Hygeine w/Assist Progression Toward Outcome/Goals Goals Adjusted Lack of Progression Comment Pt participated well in treatment session, continues to be limited 2* sling/knee immobilizer and limited WB status requiring mod- totalA for ADLs in supine. Cardiovascular- Improve/Maintain Start: 05/20/19 16:10 Freq: DAILY@ Status: Active Target: 06/17/19 Protocol: Activity Type Activity Date Activity User E-Sign Co-Sign Detail Recorded Client Recorded Date Recorded By Document 05/31/19 09:11 [id number] 05/31/19 09:13 [id number] 05/31/19 09:11 PMRU Outcome: Cardiovascular Vital Signs q Shift for 48hrs Then BID Yes Daily Weight Ordered No Current Cardiovascular Outcome/Goal Maintain/ Achieve Baseline HR, BP , Perfusion Improve HR Within Prescribed Parameters Maintain/ Improve Perfusion Free of Abnormal Cardiac Symptoms Progression Toward Outcome/Goal Progressing DVT Prophylaxis- Improve/Maintain Start: 05/20/19 16:10 Freq: DAILY@ Status: Active Target: 06/17/19 Protocol: Activity Type Activity Date Activity User E-Sign Co-Sign Detail Recorded Client Recorded Date Recorded By Document 05/31/19 09:11 [id number] 05/31/19 09:13 [id number] 05/31/19 09:11 PMRU Outcome: DVT Prophylaxis Current DVT Outcome/Goals Remains Free of DVT Complies with DVT Prophylaxis /Treatment Demonstrates Knowledge of DVT Prevention/ Treatment Progression Toward Outcome/Goals Progressing Discharge Planning - Improve/Maintain Start: 05/20/19 16:10 Freq: DAILY@ Status: Active Target: 06/17/19 Protocol: Activity Type Activity Date Activity User E-Sign Co-Sign Detail Recorded Client Recorded Date Recorded By Document 05/31/19 09:11 [id number] [email or web address] 05/31/19 09:13 [id number] 05/31/19 09:11 PMRU Outcome: Discharge Planning Current Discharge Planning Outcome/Goals Demonstrates Understanding of Discharge Plan Homecare Referral - See Comment Progression Toward Outcome/Goals Progressing Education-Improve/Maintain Start: 05/20/19 16:10 Freq: DAILY@ Status: Active Target: 06/17/19 Protocol: Activity Type Activity Date Activity User E-Sign Co-Sign Detail Recorded Client Recorded Date Recorded By Document 05/31/19 09:11 [id number] [email or web address] 05/31/19 09:13 [id number] 05/31/19 09:11 PMRU Outcome: Education Current Education Outcome/Goals Demonstrate/ Verbalize Understanding of Written Discharge Instructions Demonstrates Skills Encourage Questions Progression Toward Outcome/Goals Progressing Mobility- Improve/Maintain Start: 05/20/19 16:10 Freq: DAILY@ Status: Active Target: 05/21/19 Protocol: Activity Type Activity Date Activity User E-Sign Co-Sign Detail Recorded Client Recorded Date Recorded By Document 05/30/19 13:53 [id number] 05/30/19 13:53 [id number] 05/30/19 13:53 PMRU Outcome: Mobility Physical Therapy Evaluation and Yes Treatment Activity OOB with Assistance Yes WBAT No NWB Yes: NWB RUE/ LLE TTWB No Device Yes Assistance Yes Patient to be seen 5x/wk for 60-120 min/ Therex day for: Mobility Training W/C Mobility Balance Other Other Therapy Comment discharge training, discharge planning Current Mobility Outcome/Goals Improve Mobility Status Demonstrates Proper Use of Assistive Devices Progression Toward Outcome/Goals Progressing Bed Mobility Yes: independent Transfers Yes: supervision with SB or HW Gait x ft No W/C Mobility x ft Yes: independent 150 ' Up/Down Stairs No: ramp entrance recommended With HEP Yes: independent Rec Therapy- Improve/Maintain Start: 05/23/19 14:49 Freq: DAILY@[id number] Status: Active Target: 06/21/19 Protocol: Activity Type Activity Date Activity User E-Sign Co-Sign Detail Recorded Client Recorded Date Recorded By Document 05/30/19 16:03 [id number] [email or web address] 05/30/19 16:05 [id number] 05/30/19 16:03 PMRU Outcome: Recreation Therapy Current Rec Ther Outcome/Goals Complete Rec Therapy Assessment Meet with Patient Regularly for Support Encourage Leisure Involvement Progression Toward Outcome/Goals Progressing Lack of Progression Comment Met with pt to provide leisure visit. Pt discussed that she was feeling tired after therapies and ready to rest. Pt declined offers for formal activities, but is open to continued leisure visits and pet therapy . Outcome/Goals Met Complete Rec Therapy Assessment Outcome/Goals Met Comment Recreation therapy assessment complete Safety- Improve/Maintain Start: 05/20/19 14:55 Freq: DAILY@0700,1900 Status: Active Target: 06/17/19 Protocol: Activity Type Activity Date Activity User E-Sign Co-Sign Detail Recorded Client Recorded Date Recorded By Document 05/31/19 09:11 [id number] 05/31/19 09:13 [id number] 05/31/19 09:11 PMRU Outcome: Safety Current Safety Outcome/Goals Remain Free of Injury or Harm Cooperates with Safety Measures for Least Restrictive Environment Prevent Falls/ Injury Progression Toward Outcome/Goals Progressing Skin- Improve/Maintain Start: 05/20/19 16:10 Freq: DAILY@0700,1900 Status: Active Target: 06/17/19 Protocol: Activity Type Activity Date Activity User E-Sign Co-Sign Detail Recorded Client Recorded Date Recorded By Document 05/31/19 09:11 [id number] 05/31/19 09:13 [id number] 05/31/19 09:11 PMRU Outcome: Skin Skin Risk Level No Risk Skin Orders Dressing Change Multipodus Boot Heels Off Bed Skin Orders Comment W-D drsg to LLE Current Skin Outcome/Goals Maintain/ Improve Skin Integrity Free from Pressure Injury Surgical Incisions Healing Progression Toward Outcome/Goals Progressing - Interdisciplinary Staff Present Electronic Prepress Technician/Social Work Staff Present: Katy Gaxiola LMSW Nursing Staff Present: Kaylene Rob, NAMITA Nutrition Staff Present: Anastasiia Shelley OT Staff Present: Mona Smart PT Staff Present: Gabi Beverly Rec Therapy Staff Present: Santa Márquez CONDUIT CLEANER Staff Present: Renny Streeter Medicine Note: Length of Stay: 3 weeks Anticipated Discharge Destination: Home Tentative Discharge Date: 06/21/2019 Discharged to: Home
[2019-05-31] MEDS: [UNRECOGNIZED DRUG - OTHER] PO SCH (17:08)
[2019-05-31] MEDS: [UNRECOGNIZED DRUG - OTHER] PO SCH (17:08)
--- NOTE | 2019-05-31 17:08 | PN ---
Progress Note Date of Service: 05/31/19 Note: JI ASHRAF was visited. Therapy notes read and reviewed. She was discussed in interdisciplinary team rounds. She was noted to often self-limit how much she will do. She had an ortho appointment today. Can begin AAROM and PROM of right elbow and strengthening for right wrist and hand. Current Medications: Active Medications Generic Name Dose Route Start Last Admin Trade Name Freq PRN Reason Stop Dose Admin Acetaminophen 650 mg 05/20/19 14:51 Tylenol Tab* PO Q6H PRN PAIN - MODERATE Al Hydrox/Mg Hydrox/Simethicone 30 ml 05/20/19 14:06 05/30/19 13:13 Maalox Plus* PO 30 ml Q6H PRN Administration INDIGESTION Amlodipine Besylate 5 mg 05/21/19 09:00 05/31/19 08:57 Norvasc Tab* PO 5 mg DAILY CANDIDO Administration Bisacodyl 10 mg 05/20/19 14:06 05/27/19 21:09 Dulcolax Supp* [place] 10 mg DAILY PRN Administration CONSTIPATION Docusate Sodium 100 mg 05/20/19 21:00 05/31/19 08:57 Colace Cap* PO 100 mg BID CANDIDO Administration Heparin Sodium (Porcine) 5,000 units 05/20/19 22:00 05/31/19 13:49 Heparin Vial(*) SUBCUT 5,000 units Q8HR CANDIDO Administration Magnesium Hydroxide 30 ml 05/20/19 14:06 Milk Of Magnesia Liq* PO Q6H PRN CONSTIPATION Multivitamins/Minerals 1 tab 05/21/19 09:00 05/31/19 08:57 Theragran/Minerals Tab* PO 1 tab DAILY CANDIDO Administration Pto - Sleep Aid ( 1 dose 05/21/19 17:58 05/30/19 22:08 Doxylamine 25 Mg) PO 1 dose BEDTIME PRN Administration SLEEP Pto - Super C Mvi 1 dose 05/22/19 18:00 05/31/19 09:00 PO Not Given BID WITH MEALS CANDIDO Pto - Inner Defense 1 cap 05/22/19 17:00 05/31/19 09:00 Supplement 1 Cap PO Not Given 0900,1700 CANDIDO Pto - Vitamin De 5,000 units 05/27/19 17:00 05/30/19 17:04 Gold 5,000 Units PO 5,000 units 1700 CANDIDO Administration Pto - Super B Mvi 1 dose 05/27/19 17:00 05/30/19 17:06 Supplement PO 1 dose 1700 CANDIDO Administration Ondansetron HCl 4 mg 05/30/19 14:54 05/30/19 16:01 Zofran Odt Tab* PO 4 mg Q6H PRN Administration NAUSEA Oxycodone HCl 5 mg 05/20/19 14:17 Roxycodone Tab* PO Q4H PRN PAIN - SEVERE Polyethylene Glycol/Electrolytes 17 gm 05/26/19 21:00 05/30/19 21:36 Miralax* PO Not Given BEDTIME CANDIDO Senna 2 tab 05/20/19 14:06 05/30/19 21:36 Senokot 8.6 Mg Tab* PO 2 tab BEDTIME PRN Administration CONSTIPATION Vital Signs: Vital Signs Temp Pulse Resp BP Pulse Ox 98.4 F 79 18 145/70 99 05/31/19 16:00 05/31/19 16:00 05/31/19 16:00 05/31/19 16:00 05/31/19 16:00 Exam: GENERAL: No acute distress. Alert and appropriate. LUNGS: Clear to auscultation bilaterally. HEART: Regular rate and rhythm. ABDOMEN: Active bowel sounds. Soft, nontender, nondistended. EXTREMITIES: She has some pedal edema, left greater than right. +DP/PT pulses bilaterally. Left leg brace locked at 20 degrees of flexion. Right arm in a sling. SKIN: Left leg dressings changed by nursing, wound edges look clean. NEUROLOGICAL EXAM: Normal sensation x3. Impaired sensation in left leg below the knee. Trace left toe flexion and otherwise 0/5 left foot/ankle. Exam of rest of LLE motor limited by restrictions. RLE and LUE motor 5/5. RUE motor 5/ 5 in hand and wrist with rest of exam limited by sling. 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 1. Status post popliteal bypass: She is to follow up with Dr. Urbano in 2 weeks in the vascular clinic at [place]. Hold on Plavix until after she has had surgery with potential skin grafting with the [facility]. She has a followup with Vascular Surgery on 06/03/19 at 11:20a. 2. Left knee dislocation with ligament tears: Continue with non-weight bearing precautions to the left lower extremity. Continue with brace on her left leg locked to 20 degrees of flexion. Range of motion and stretching of her left foot /ankle at least 5 times per day to prevent contracture. 3. Right Humerus Fracture: Sling for RUE. Can begin AROM and PROM of right elbow and strengthening of wrist and hand 3. Status post LLE fasciotomy with open wounds: Continue with moist to dry dressings b.i.d. to the left leg. Follow up with plastic surgery clinic about closure. 4. Acute blood loss anemia: stable. Follow routine labs. 5. 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 Multi Podus boot on LLE when she is in bed. 6. Acute renal failure: Cr improving. Follow routine labs. 7. Impaired mobility: PT for transfer, bed mobility, and short distance gait training using a margareth walker and wheelchair. 8. Impaired self-care: OT for ADL training and equipment evaluation. Family training as appropriate. 9. Advance directives: She is a full code. Her , Bradley Ashraf, is surrogate decision maker. 10. Vitamin D deficiency: has own supplement of 5000iu daily. 05/31/19 17:08
[2019-05-31] MEDS: Senna TAB 8.6 mg* TAB PO PRN (21:29)
[2019-05-31] MEDS: Polyethylene Glycol 3350* 17 GM PACKET PO SCH (21:30)
[2019-05-31] MEDS: DOXYLAMINE PO PRN (21:30)
[2019-05-31] MEDS: [UNRECOGNIZED DRUG - OTHER] PO PRN (21:30)
[2019-06-01 04:40] LABS: ABS Basophils 0.1 10^3/ul (0-0.2); ABS Eosinophils 0.3 10^3/ul (0-0.6); ABS Lymphocytes 1.4 10^3/ul (1.0-4.8); ABS Monocytes 0.8 10^3/ul (0-0.8); ABS Neutrophils 3.9 10^3/ul (1.5-7.7); Eosinophil % 5.1 %; Hematocrit 26 % (35-47); Hemoglobin 8.6 g/dL (12.0-16.0); Mean Corpuscular HGB Conc 33 g/dL (31-36); Mean Corpuscular Hemoglobin 29 pg (27-31); Mean Corpuscular Volume 88 fL (80-97); Mean Platelet Volume 8.1 fL (7.4-10.4); Platelet Count 194 10^3/uL (150-450); Red Blood Count 2.93 10^6 /uL (3.70-4.87); Red Cell Distribution Width 15 % (10-15); White Blood Count 6.6 10^3/uL (3.5-10.8)
[2019-06-01 04:55] LABS: Albumin 2.8 g/dL (3.2-5.2); Albumin/Globulin Ratio 1.1 (1-3); BUN/Creatinine Ratio 15.9 (8-20); Calcium 8.2 mg/dL (8.6-10.3); EGFR African American 62.5 (>60); EGFR Non-African American 51.6 (>60); Globulin 2.6 g/dL (2-4); Potassium 3.8 mmol/L (3.5-5.0); Total Bilirubin 0.4 mg/dL (0.2-1.0); Total Protein 5.4 g/dL (6.4-8.9)
[2019-06-01] MEDS: Heparin VIAL(*) 5000 UNITS/ML VIAL (FIVE THOUSAND) SUBCUT SCH ×3 (05:39→21:02)
[2019-06-01] MEDS: amLODIPine TAB* 5 MG PO SCH (08:04)
[2019-06-01] MEDS: [UNRECOGNIZED DRUG - OTHER] PO SCH ×2 (08:04→16:58)
[2019-06-01] MEDS: [UNRECOGNIZED DRUG - OTHER] PO SCH ×2 (08:04→16:58)
[2019-06-01] MEDS: Docusate CAP* 100 MG PO SCH ×2 (08:04→21:02)
[2019-06-01] MEDS: Multivitamins/Minerals TAB PO SCH (08:04)
[2019-06-01] MEDS: [UNRECOGNIZED DRUG - OTHER] PO SCH (16:58)
[2019-06-01] MEDS: [UNRECOGNIZED DRUG - OTHER] PO SCH (16:59)
--- NOTE | 2019-06-01 20:03 | PN ---
Progress Note Date of Service: 06/01/19 Note: JI ASHRAF was visited. Therapy notes read and reviewed. Her Cr is almost normal and her WBC are better. Her Hb/Hct is better as well. Wounds appear clean Current Medications: Active Medications Generic Name Dose Route Start Last Admin Trade Name Freq PRN Reason Stop Dose Admin Acetaminophen 650 mg 05/20/19 14:51 Tylenol Tab* PO Q6H PRN PAIN - MODERATE Al Hydrox/Mg Hydrox/Simethicone 30 ml 05/20/19 14:06 05/30/19 13:13 Maalox Plus* PO 30 ml Q6H PRN Administration INDIGESTION Amlodipine Besylate 5 mg 05/21/19 09:00 06/01/19 08:04 Norvasc Tab* PO 5 mg DAILY CANDIDO Administration Bisacodyl 10 mg 05/20/19 14:06 05/27/19 21:09 Dulcolax Supp* NC 10 mg DAILY PRN Administration CONSTIPATION Docusate Sodium 100 mg 05/20/19 21:00 06/01/19 08:04 Colace Cap* PO 100 mg BID CANDIDO Administration Heparin Sodium (Porcine) 5,000 units 05/20/19 22:00 06/01/19 14:09 Heparin Vial(*) SUBCUT 5,000 units Q8HR CANDIDO Administration Magnesium Hydroxide 30 ml 05/20/19 14:06 Milk Of Magnesia Liq* PO Q6H PRN CONSTIPATION Multivitamins/Minerals 1 tab 05/21/19 09:00 06/01/19 08:04 Theragran/Minerals Tab* PO 1 tab DAILY CANDIDO Administration Pto - Sleep Aid ( 1 dose 05/21/19 17:58 05/31/19 21:30 Doxylamine 25 Mg) PO 1 dose BEDTIME PRN Administration SLEEP Pto - Super C Mvi 1 dose 05/22/19 18:00 06/01/19 16:58 PO 1 dose BID WITH MEALS CANDIDO Administration Pto - Inner Defense 1 cap 05/22/19 17:00 06/01/19 16:58 Supplement 1 Cap PO 1 cap 0900,1700 CANDIDO Administration Pto - Vitamin De 5,000 units 05/27/19 17:00 06/01/19 16:59 Gold 5,000 Units PO 5,000 units 1700 CANDIDO Administration Pto - Super B Mvi 1 dose 05/27/19 17:00 06/01/19 16:58 Supplement PO 1 dose 1700 CANDIDO Administration Ondansetron HCl 4 mg 05/30/19 14:54 05/30/19 16:01 Zofran Odt Tab* PO 4 mg Q6H PRN Administration NAUSEA Oxycodone HCl 5 mg 05/20/19 14:17 Roxycodone Tab* PO Q4H PRN PAIN - SEVERE Polyethylene Glycol/Electrolytes 17 gm 05/26/19 21:00 05/31/19 21:30 Miralax* PO Not Given BEDTIME CANDIDO Senna 2 tab 05/20/19 14:06 05/31/19 21:29 Senokot 8.6 Mg Tab* PO 2 tab BEDTIME PRN Administration CONSTIPATION Vital Signs: Vital Signs Temp Pulse Resp BP Pulse Ox 97.9 F 74 16 142/67 100 06/01/19 16:32 06/01/19 16:32 06/01/19 16:32 06/01/19 16:32 06/01/19 16:32 Lab Results: Laboratory Results - last 24 hr 06/01/19 06/01/19 04:30 04:30 WBC 6.6 RBC 2.93 L Hgb 8.6 L Hct 26 L MCV 88 MCH 29 MCHC 33 RDW 15 Plt Count 194 MPV 8.1 Neut % (Auto) 59.4 Lymph % (Auto) 22.0 [place] % (Auto) 12.2 Eos % (Auto) 5.1 Baso % (Auto) 1.3 Absolute Neuts (auto) 3.9 Absolute Lymphs (auto) 1.4 Absolute Monos (auto) 0.8 Absolute Eos (auto) 0.3 Absolute Basos (auto) 0.1 Absolute Nucleated RBC 0.0 Nucleated RBC % 0.0 Sodium 136 Potassium 3.8 Chloride 101 Carbon Dioxide 29 Anion Gap 6 BUN 17 Creatinine 1.07 H Est GFR ( Amer) 62.5 Est GFR (Non-Af Amer) 51.6 BUN/Creatinine Ratio 15.9 Glucose 107 H Calcium 8.2 L Total Bilirubin 0.40 AST 15 ALT 22 Alkaline Phosphatase 52 Total Protein 5.4 L Albumin 2.8 L Globulin 2.6 Albumin/Globulin Ratio 1.1 Exam: GENERAL: No acute distress. Alert and appropriate. LUNGS: Clear to auscultation bilaterally. HEART: Regular rate and rhythm. ABDOMEN: Active bowel sounds. Soft, nontender, nondistended. EXTREMITIES: She has some pedal edema, left greater than right. +DP/PT pulses bilaterally. Left leg brace locked at 20 degrees of flexion. Right arm in a sling. SKIN: Left leg dressings changed by nursing, wound edges look clean. NEUROLOGICAL EXAM: Normal sensation x3. Impaired sensation in left leg below the knee. Trace left toe flexion and otherwise 0/5 left foot/ankle. Exam of rest of LLE motor limited by restrictions. RLE and LUE motor 5/5. RUE motor 5/ 5 in hand and wrist with rest of exam limited by sling. 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 1. Status post popliteal bypass: She is to follow up with Dr. Urbano in 2 weeks in the vascular clinic at [place]. Hold on Plavix until after she has had surgery with potential skin grafting with the [facility]. She has a followup with Vascular Surgery on 06/03/19 at 11:20a. 2. Left knee dislocation with ligament tears: Continue with non-weight bearing precautions to the left lower extremity. Continue with brace on her left leg locked to 20 degrees of flexion. Range of motion and stretching of her left foot /ankle at least 5 times per day to prevent contracture. 3. Right Humerus Fracture: Sling for RUE. Begin AROM and PROM of right elbow and strengthening of wrist and hand 3. Status post LLE fasciotomy with open wounds: Continue with moist to dry dressings b.i.d. to the left leg. Follow up with plastic surgery clinic about closure. 4. Acute blood loss anemia: stable. Hb 8.6. Follow routine labs. 5. 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 Multi Podus boot on LLE when she is in bed. 6. Acute renal failure: Cr now 1.07. Routine labs. 7. Impaired mobility: PT for transfer, bed mobility, and short distance gait training using a margareth walker and wheelchair. 8. Impaired self-care: OT for ADL training and equipment evaluation. Family training as appropriate. 9. Advance directives: She is a full code. Her , Bradley Ashraf, is surrogate decision maker. 10. Vitamin D deficiency: has own supplement of 5000iu daily. 06/01/19 20:03
[2019-06-01] MEDS: Polyethylene Glycol 3350* 17 GM PACKET PO SCH (21:01)
[2019-06-01] MEDS: [UNRECOGNIZED DRUG - OTHER] PO PRN (21:02)
[2019-06-01] MEDS: DOXYLAMINE PO PRN (21:02)
[2019-06-02] MEDS: Heparin VIAL(*) 5000 UNITS/ML VIAL (FIVE THOUSAND) SUBCUT SCH ×3 (05:35→21:11)
[2019-06-02] MEDS: amLODIPine TAB* 5 MG PO SCH (07:41)
[2019-06-02] MEDS: [UNRECOGNIZED DRUG - OTHER] PO SCH ×2 (07:41→17:05)
[2019-06-02] MEDS: Docusate CAP* 100 MG PO SCH ×2 (07:41→20:52)
[2019-06-02] MEDS: Multivitamins/Minerals TAB PO SCH (07:41)
[2019-06-02] MEDS: [UNRECOGNIZED DRUG - OTHER] PO SCH ×2 (07:42→17:05)
[2019-06-02] MEDS: [UNRECOGNIZED DRUG - OTHER] PO SCH (17:05)
[2019-06-02] MEDS: [UNRECOGNIZED DRUG - OTHER] PO SCH (17:05)
--- NOTE | 2019-06-02 17:28 | PN ---
Progress Note Date of Service: 06/02/19 Note: JI ASHRAF was visited. Therapy notes read and reviewed. She will have her follow up appointments in [place] with [facility] tomorrow.She is otherwise doing ok. Current Medications: Active Medications Generic Name Dose Route Start Last Admin Trade Name Freq PRN Reason Stop Dose Admin Acetaminophen 650 mg 05/20/19 14:51 Tylenol Tab* PO Q6H PRN PAIN - MODERATE Al Hydrox/Mg Hydrox/Simethicone 30 ml 05/20/19 14:06 05/30/19 13:13 Maalox Plus* PO 30 ml Q6H PRN Administration INDIGESTION Amlodipine Besylate 5 mg 05/21/19 09:00 06/02/19 07:41 Norvasc Tab* PO 5 mg DAILY CANDIDO Administration Bisacodyl 10 mg 05/20/19 14:06 05/27/19 21:09 Dulcolax Supp* [place] 10 mg DAILY PRN Administration CONSTIPATION Docusate Sodium 100 mg 05/20/19 21:00 06/02/19 07:41 Colace Cap* PO 100 mg BID CANDIDO Administration Heparin Sodium (Porcine) 5,000 units 05/20/19 22:00 06/02/19 14:21 Heparin Vial(*) SUBCUT 5,000 units Q8HR CANDIDO Administration Magnesium Hydroxide 30 ml 05/20/19 14:06 Milk Of Magnesia Liq* PO Q6H PRN CONSTIPATION Multivitamins/Minerals 1 tab 05/21/19 09:00 06/02/19 07:41 Theragran/Minerals Tab* PO 1 tab DAILY CANDIDO Administration Pto - Sleep Aid ( 1 dose 05/21/19 17:58 06/01/19 21:02 Doxylamine 25 Mg) PO 1 dose BEDTIME PRN Administration SLEEP Pto - Super C Mvi 1 dose 05/22/19 18:00 06/02/19 17:05 PO 1 dose BID WITH MEALS CANDIDO Administration Pto - Inner Defense 1 cap 05/22/19 17:00 06/02/19 17:05 Supplement 1 Cap PO 1 cap 0900,1700 CANDIDO Administration Pto - Vitamin De 5,000 units 05/27/19 17:00 06/02/19 17:05 Gold 5,000 Units PO 5,000 units 1700 CANDIDO Administration Pto - Super B Mvi 1 dose 05/27/19 17:00 06/02/19 17:05 Supplement PO 1 dose 1700 CANDIDO Administration Ondansetron HCl 4 mg 05/30/19 14:54 05/30/19 16:01 Zofran Odt Tab* PO 4 mg Q6H PRN Administration NAUSEA Oxycodone HCl 5 mg 05/20/19 14:17 Roxycodone Tab* PO Q4H PRN PAIN - SEVERE Polyethylene Glycol/Electrolytes 17 gm 05/26/19 21:00 06/01/19 21:01 Miralax* PO 17 gm BEDTIME CANDIDO Administration Senna 2 tab 05/20/19 14:06 05/31/19 21:29 Senokot 8.6 Mg Tab* PO 2 tab BEDTIME PRN Administration CONSTIPATION Vital Signs: Vital Signs Temp Pulse Resp BP Pulse Ox 98.3 F 82 18 145/71 100 06/02/19 15:53 06/02/19 15:53 06/02/19 15:53 06/02/19 15:53 06/02/19 15:53 Exam: GENERAL: No acute distress. Alert and appropriate. LUNGS: Clear to auscultation bilaterally. HEART: Regular rate and rhythm. ABDOMEN: Active bowel sounds. Soft, nontender, nondistended. EXTREMITIES: She has some pedal edema, left greater than right. +DP/PT pulses bilaterally. Left leg brace locked at 20 degrees of flexion. Right arm in a sling. SKIN: Left leg dressings changed by nursing, wound edges look clean. NEUROLOGICAL EXAM: Normal sensation x3. Impaired sensation in left leg below the knee. Trace left toe flexion and otherwise 0/5 left foot/ankle. Exam of rest of LLE motor limited by restrictions. RLE and LUE motor 5/5. RUE motor 5/ 5 in hand and wrist with rest of exam limited by sling. 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 1. Status post popliteal bypass: Hold on Plavix until after she has had surgery with potential skin grafting with the [facility]. She has a followup with Vascular Surgery tomorrow. 2. Left knee dislocation with ligament tears: Continue with non-weight bearing precautions to the left lower extremity. Continue with brace on her left leg locked to 20 degrees of flexion. Range of motion and stretching of her left foot /ankle at least 5 times per day to prevent contracture. 3. Right Humerus Fracture: Sling for RUE. Begin AROM and PROM of right elbow and strengthening of wrist and hand 3. Status post LLE fasciotomy with open wounds: Continue with moist to dry dressings b.i.d. to the left leg. Follow up with plastic surgery clinic tomorrow about closure. 4. Acute blood loss anemia: stable. Hb 8.6. Follow routine labs. 5. 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 Multi Podus boot on LLE when she is in bed. 6. Acute renal failure: Cr now 1.07. Routine labs. 7. Impaired mobility: PT for transfer, bed mobility, and short distance gait training using a margareth walker and wheelchair. 8. Impaired self-care: OT for ADL training and equipment evaluation. Family training as appropriate. 9. Advance directives: She is a full code. Her , Bradley Ashraf, is surrogate decision maker. 10. Vitamin D deficiency: has own supplement of 5000iu daily. 06/02/19 17:28
[2019-06-02] MEDS: Senna TAB 8.6 mg* TAB PO PRN (20:52)
[2019-06-02] MEDS: Polyethylene Glycol 3350* 17 GM PACKET PO SCH (21:11)
[2019-06-02] MEDS: [UNRECOGNIZED DRUG - OTHER] PO PRN (21:44)
[2019-06-02] MEDS: DOXYLAMINE PO PRN (21:44)
[2019-06-03] MEDS: Heparin VIAL(*) 5000 UNITS/ML VIAL (FIVE THOUSAND) SUBCUT SCH ×3 (06:08→21:15)
--- NOTE | 2019-06-03 08:23 | PN ---
Progress Note Date of Service: 06/03/19 Note: JI ASHRAF was visited. Nursing and therapy notes read and reviewed. No chest pain, shortness of breath or abdominal pain. She has no pain. Current Medications: Active Medications Generic Name Dose Route Start Last Admin Trade Name Freq PRN Reason Stop Dose Admin Acetaminophen 650 mg 05/20/19 14:51 Tylenol Tab* PO Q6H PRN PAIN - MODERATE Al Hydrox/Mg Hydrox/Simethicone 30 ml 05/20/19 14:06 05/30/19 13:13 Maalox Plus* PO 30 ml Q6H PRN Administration INDIGESTION Amlodipine Besylate 5 mg 05/21/19 09:00 06/02/19 07:41 Norvasc Tab* PO 5 mg DAILY CANDIDO Administration Bisacodyl 10 mg 05/20/19 14:06 06/02/19 19:12 Dulcolax Supp* CT 10 mg DAILY PRN Administration CONSTIPATION Docusate Sodium 100 mg 05/20/19 21:00 06/02/19 20:52 Colace Cap* PO 100 mg BID CANDIDO Administration Heparin Sodium (Porcine) 5,000 units 05/20/19 22:00 06/03/19 06:08 Heparin Vial(*) SUBCUT 5,000 units Q8HR CANDIDO Administration Magnesium Hydroxide 30 ml 05/20/19 14:06 Milk Of Magnesia Liq* PO Q6H PRN CONSTIPATION Multivitamins/Minerals 1 tab 05/21/19 09:00 06/02/19 07:41 Theragran/Minerals Tab* PO 1 tab DAILY CANDIDO Administration Pto - Sleep Aid ( 1 dose 05/21/19 17:58 06/02/19 21:44 Doxylamine 25 Mg) PO 1 dose BEDTIME PRN Administration SLEEP Pto - Super C Mvi 1 dose 05/22/19 18:00 06/02/19 17:05 PO 1 dose BID WITH MEALS CANDIDO Administration Pto - Inner Defense 1 cap 05/22/19 17:00 06/02/19 17:05 Supplement 1 Cap PO 1 cap 0900,1700 CANDIDO Administration Pto - Vitamin De 5,000 units 05/27/19 17:00 06/02/19 17:05 Gold 5,000 Units PO 5,000 units 1700 CANDIDO Administration Pto - Super B Mvi 1 dose 05/27/19 17:00 06/02/19 17:05 Supplement PO 1 dose 1700 CANDIDO Administration Ondansetron HCl 4 mg 05/30/19 14:54 05/30/19 16:01 Zofran Odt Tab* PO 4 mg Q6H PRN Administration NAUSEA Oxycodone HCl 5 mg 05/20/19 14:17 Roxycodone Tab* PO Q4H PRN PAIN - SEVERE Polyethylene Glycol/Electrolytes 17 gm 05/26/19 21:00 06/02/19 21:11 Miralax* PO Not Given BEDTIME CANDIDO Senna 2 tab 05/20/19 14:06 06/02/19 20:52 Senokot 8.6 Mg Tab* PO 2 tab BEDTIME PRN Administration CONSTIPATION Vital Signs: Vital Signs Temp Pulse Resp BP Pulse Ox 98.1 F 80 12 146/72 97 06/03/19 06:09 06/03/19 06:09 06/03/19 06:09 06/03/19 06:09 06/03/19 06:09 Exam: GENERAL: No acute distress. Alert and appropriate. LUNGS: Clear to auscultation bilaterally. HEART: Regular rate and rhythm. ABDOMEN: Active bowel sounds. Soft, nontender, nondistended. EXTREMITIES: Pedal edema, left greater than right. +DP/PT pulses bilaterally. Left leg brace locked at 20 degrees of flexion. Right arm in a sling. SKIN: Left leg dressings intact - not changed this morning as heading in for plastics appt. NEUROLOGICAL EXAM: Normal sensation x3. Impaired sensation in left leg below the knee. Trace left toe flexion and otherwise 0/5 left foot/ankle. Exam of rest of LLE motor limited by restrictions. RLE and LUE motor 5/5. RUE motor 5/ 5 in hand and wrist with rest of exam limited by sling. 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 1. Status post popliteal bypass: Hold on Plavix until after she has had surgery with potential skin grafting with the [facility]. She has a followup with Vascular Surgery today. 2. Left knee dislocation with ligament tears: Continue with non-weight bearing precautions to the left lower extremity. Continue with brace on her left leg locked to 20 degrees of flexion. Range of motion and stretching of her left foot /ankle at least 5 times per day to prevent contracture. Multipodus boot when in bed. 3. Right Humerus Fracture: Sling for RUE. Begin AROM and PROM of right elbow and strengthening of wrist and hand. f/u with ortho. 3. Status post LLE fasciotomy with open wounds: Continue with moist to dry dressings b.i.d. to the left leg. Follow up with plastic surgery clinic today about closure. 4. Acute blood loss anemia: stable. Hb 8.6. Follow routine labs. 5. 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 Multi Podus boot on LLE when she is in bed. 6. Acute renal failure: Cr now 1.07. Routine labs. 7. Impaired mobility: PT for transfer, bed mobility, and short distance gait training using a margareth walker and wheelchair. 8. Impaired self-care: OT for ADL training and equipment evaluation. Family training as appropriate. 9. Advance directives: She is a full code. Her , Bradley Ashraf, is surrogate decision maker. 10. Vitamin D deficiency: has own supplement of 5000iu daily. 06/03/19 08:24
[2019-06-03] MEDS: [UNRECOGNIZED DRUG - OTHER] PO SCH ×2 (08:45→17:01)
[2019-06-03] MEDS: amLODIPine TAB* 5 MG PO SCH (08:45)
[2019-06-03] MEDS: Docusate CAP* 100 MG PO SCH ×2 (08:45→21:14)
[2019-06-03] MEDS: [UNRECOGNIZED DRUG - OTHER] PO SCH ×2 (08:46→17:02)
[2019-06-03] MEDS: Multivitamins/Minerals TAB PO SCH (08:46)
[2019-06-03] MEDS: [UNRECOGNIZED DRUG - OTHER] PO SCH (17:01)
[2019-06-03] MEDS: [UNRECOGNIZED DRUG - OTHER] PO SCH (17:02)
[2019-06-03] MEDS: Senna TAB 8.6 mg* TAB PO PRN (21:14)
[2019-06-03] MEDS: Polyethylene Glycol 3350* 17 GM PACKET PO SCH (21:15)
[2019-06-03] MEDS: [UNRECOGNIZED DRUG - OTHER] PO PRN (21:39)
[2019-06-03] MEDS: DOXYLAMINE PO PRN (21:39)
[2019-06-04] MEDS: Heparin VIAL(*) 5000 UNITS/ML VIAL (FIVE THOUSAND) SUBCUT SCH ×3 (06:17→21:38)
[2019-06-04] MEDS: [UNRECOGNIZED DRUG - OTHER] PO SCH ×2 (08:41→17:06)
[2019-06-04] MEDS: Docusate CAP* 100 MG PO SCH ×2 (08:42→21:27)
[2019-06-04] MEDS: Multivitamins/Minerals TAB PO SCH (08:42)
[2019-06-04] MEDS: [UNRECOGNIZED DRUG - OTHER] PO SCH ×2 (08:42→17:06)
[2019-06-04] MEDS: amLODIPine TAB* 5 MG PO SCH (08:42)
--- NOTE | 2019-06-04 09:46 | PN ---
Progress Note Date of Service: 06/04/19 Note: JI ASHRAF was visited. Nursing and therapy notes read and reviewed. She had an uneventful trip to [place] yesterday. Sutures were removed by vascular service at her right inner thigh with steri strips placed. Dr. Jones in plastics said she needed more time before grafting for the medial fasciotomy site per patient's report. He did send an order to add an anil wrap over the wet to dry dressings BID. No chest pain, shortness of breath or abdominal pain. Current Medications: Active Medications Generic Name Dose Route Start Last Admin Trade Name Freq PRN Reason Stop Dose Admin Acetaminophen 650 mg 05/20/19 14:51 Tylenol Tab* PO Q6H PRN PAIN - MODERATE Al Hydrox/Mg Hydrox/Simethicone 30 ml 05/20/19 14:06 05/30/19 13:13 Maalox Plus* PO 30 ml Q6H PRN Administration INDIGESTION Amlodipine Besylate 5 mg 05/21/19 09:00 06/04/19 08:42 Norvasc Tab* PO 5 mg DAILY CANDIDO Administration Bisacodyl 10 mg 05/20/19 14:06 06/02/19 19:12 Dulcolax Supp* [place] 10 mg DAILY PRN Administration CONSTIPATION Docusate Sodium 100 mg 05/20/19 21:00 06/04/19 08:42 Colace Cap* PO 100 mg BID CANDIDO Administration Heparin Sodium (Porcine) 5,000 units 05/20/19 22:00 06/04/19 06:17 Heparin Vial(*) SUBCUT 5,000 units Q8HR CANDIDO Administration Magnesium Hydroxide 30 ml 05/20/19 14:06 Milk Of Magnesia Liq* PO Q6H PRN CONSTIPATION Multivitamins/Minerals 1 tab 05/21/19 09:00 06/04/19 08:42 Theragran/Minerals Tab* PO 1 tab DAILY CANDIDO Administration Pto - Sleep Aid ( 1 dose 05/21/19 17:58 06/03/19 21:39 Doxylamine 25 Mg) PO 1 dose BEDTIME PRN Administration SLEEP Pto - Super C Mvi 1 dose 05/22/19 18:00 06/04/19 08:41 PO 1 dose BID WITH MEALS CANDIDO Administration Pto - Inner Defense 1 cap 05/22/19 17:00 06/04/19 08:42 Supplement 1 Cap PO 1 cap 0900,1700 CANDIDO Administration Pto - Vitamin De 5,000 units 05/27/19 17:00 06/03/19 17:02 Gold 5,000 Units PO 5,000 units 1700 CANDIDO Administration Pto - Super B Mvi 1 dose 05/27/19 17:00 06/03/19 17:01 Supplement PO 1 dose 1700 CANDIDO Administration Ondansetron HCl 4 mg 05/30/19 14:54 05/30/19 16:01 Zofran Odt Tab* PO 4 mg Q6H PRN Administration NAUSEA Oxycodone HCl 5 mg 05/20/19 14:17 Roxycodone Tab* PO Q4H PRN PAIN - SEVERE Polyethylene Glycol/Electrolytes 17 gm 05/26/19 21:00 06/03/19 21:15 Miralax* PO Not Given BEDTIME CANDIDO Senna 2 tab 05/20/19 14:06 06/03/19 21:14 Senokot 8.6 Mg Tab* PO 1 tab BEDTIME PRN Administration CONSTIPATION Vital Signs: Vital Signs Temp Pulse Resp BP Pulse Ox 98.2 F 86 18 148/71 97 06/04/19 06:06 06/04/19 06:06 06/04/19 06:06 06/04/19 06:06 06/04/19 06:06 Exam: GENERAL: No acute distress. Alert and appropriate. LUNGS: Clear to auscultation bilaterally. HEART: Regular rate and rhythm. ABDOMEN: Active bowel sounds. Soft, nontender, nondistended. EXTREMITIES: Pedal edema, left greater than right. +DP/PT pulses bilaterally. Left leg brace locked at 20 degrees of flexion. Right arm in a sling. SKIN: Left leg fasciotomy sites dressings changed with nursing. They look clean and moist. Left upper thigh incision with steristrips intact. NEUROLOGICAL EXAM: Normal sensation x3. Impaired sensation in left leg below the knee. Trace left toe flexion and otherwise 0/5 left foot/ankle. Exam of rest of LLE motor limited by restrictions. RLE and LUE motor 5/5. RUE motor 5/ 5 in hand and wrist with rest of exam limited by sling. 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 1. Status post popliteal bypass: Hold on Plavix until after she has had surgery with potential skin grafting with the [facility]. She had followup with Vascular Surgery 06/03/2019 with sutures removed. 2. Left knee dislocation with ligament tears: Continue with non-weight bearing precautions to the left lower extremity. Continue with brace on her left leg locked to 20 degrees of flexion. Range of motion and stretching of her left foot /ankle at least 5 times per day to prevent contracture. Multipodus boot when in bed. 3. Right Humerus Fracture: Sling for RUE. Begin AROM and PROM of right elbow and strengthening of wrist and hand. f/u with ortho. 3. Status post LLE fasciotomy with open wounds: Continue with moist to dry dressings b.i.d. to the left leg with ANIL wrap. Saw Dr. Jones in plastic surgery on 06/03/2019 and will see again on 06/23 at 1pm. Per patient he did not think the medial wound was ready for skin graft yet and it giving it more time. 4. Acute blood loss anemia: stable. Hb 8.6. Follow routine labs. 5. 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 Multi Podus boot on LLE when she is in bed. 6. Acute renal failure: Cr now 1.07. Routine labs. 7. Impaired mobility: PT for transfer, bed mobility, and short distance gait training using a margareth walker and wheelchair. 8. Impaired self-care: OT for ADL training and equipment evaluation. Family training as appropriate. 9. Advance directives: She is a full code. Her , Bradley Ashraf, is surrogate decision maker. 10. Vitamin D deficiency: has own supplement of 5000iu daily. 06/04/19 09:44
[2019-06-04] MEDS: [UNRECOGNIZED DRUG - OTHER] PO SCH (17:05)
[2019-06-04] MEDS: [UNRECOGNIZED DRUG - OTHER] PO SCH (17:06)
[2019-06-04] MEDS: Polyethylene Glycol 3350* 17 GM PACKET PO SCH (21:28)
[2019-06-04] MEDS: DOXYLAMINE PO PRN (21:42)
[2019-06-04] MEDS: [UNRECOGNIZED DRUG - OTHER] PO PRN (21:42)
[2019-06-05] MEDS: Heparin VIAL(*) 5000 UNITS/ML VIAL (FIVE THOUSAND) SUBCUT SCH ×3 (05:35→21:14)
[2019-06-05] MEDS: [UNRECOGNIZED DRUG - OTHER] PO SCH ×2 (08:40→17:21)
[2019-06-05] MEDS: amLODIPine TAB* 5 MG PO SCH (08:40)
[2019-06-05] MEDS: [UNRECOGNIZED DRUG - OTHER] PO SCH ×2 (08:40→17:22)
[2019-06-05] MEDS: Multivitamins/Minerals TAB PO SCH (08:40)
[2019-06-05] MEDS: Docusate CAP* 100 MG PO SCH ×2 (08:40→21:14)
--- NOTE | 2019-06-05 09:41 | PN ---
Progress Note Date of Service: 06/05/19 Note: JI ASHRAF was visited. Nursing and therapy notes read and reviewed. No chest pain, shortness of breath or abdominal pain. Had MOM with results yesterday. Current Medications: Active Medications Generic Name Dose Route Start Last Admin Trade Name Freq PRN Reason Stop Dose Admin Acetaminophen 650 mg 05/20/19 14:51 Tylenol Tab* PO Q6H PRN PAIN - MODERATE Al Hydrox/Mg Hydrox/Simethicone 30 ml 05/20/19 14:06 05/30/19 13:13 Maalox Plus* PO 30 ml Q6H PRN Administration INDIGESTION Amlodipine Besylate 5 mg 05/21/19 09:00 06/05/19 08:40 Norvasc Tab* PO 5 mg DAILY CANDIDO Administration Bisacodyl 10 mg 05/20/19 14:06 06/02/19 19:12 Dulcolax Supp* [place] 10 mg DAILY PRN Administration CONSTIPATION Docusate Sodium 100 mg 05/20/19 21:00 06/05/19 08:40 Colace Cap* PO 100 mg BID CANDIDO Administration Heparin Sodium (Porcine) 5,000 units 05/20/19 22:00 06/05/19 05:35 Heparin Vial(*) SUBCUT 5,000 units Q8HR CANDIDO Administration Magnesium Hydroxide 30 ml 05/20/19 14:06 06/04/19 17:44 Milk Of Magnesia Liq* PO 15 ml Q6H PRN Administration CONSTIPATION Multivitamins/Minerals 1 tab 05/21/19 09:00 06/05/19 08:40 Theragran/Minerals Tab* PO 1 tab DAILY CANDIDO Administration Pto - Sleep Aid ( 1 dose 05/21/19 17:58 06/04/19 21:42 Doxylamine 25 Mg) PO 1 dose BEDTIME PRN Administration SLEEP Pto - Super C Mvi 1 dose 05/22/19 18:00 06/05/19 08:40 PO 1 dose BID WITH MEALS CANDIDO Administration Pto - Inner Defense 1 cap 05/22/19 17:00 06/05/19 08:40 Supplement 1 Cap PO 1 cap 0900,1700 CANDIDO Administration Pto - Vitamin De 5,000 units 05/27/19 17:00 06/04/19 17:05 Gold 5,000 Units PO 5,000 units 1700 CANDIDO Administration Pto - Super B Mvi 1 dose 05/27/19 17:00 06/04/19 17:06 Supplement PO 1 dose 1700 CANDIDO Administration Ondansetron HCl 4 mg 05/30/19 14:54 05/30/19 16:01 Zofran Odt Tab* PO 4 mg Q6H PRN Administration NAUSEA Oxycodone HCl 5 mg 05/20/19 14:17 Roxycodone Tab* PO Q4H PRN PAIN - SEVERE Polyethylene Glycol/Electrolytes 17 gm 05/26/19 21:00 06/04/19 21:28 Miralax* PO Not Given BEDTIME CANDIDO Senna 2 tab 05/20/19 14:06 06/03/19 21:14 Senokot 8.6 Mg Tab* PO 1 tab BEDTIME PRN Administration CONSTIPATION Vital Signs: Vital Signs Temp Pulse Resp BP Pulse Ox 98.1 F 77 16 154/70 96 06/05/19 06:12 06/05/19 06:12 06/05/19 08:45 06/05/19 06:12 06/05/19 08:45 Exam: GENERAL: No acute distress. Alert and appropriate. LUNGS: Clear to auscultation bilaterally. HEART: Regular rate and rhythm. ABDOMEN: Active bowel sounds. Soft, nontender, nondistended. EXTREMITIES: Pedal edema, less on left with anil wrapping, but still present bilaterally. +DP/PT pulses bilaterally. Left leg brace locked at 20 degrees of flexion. Right arm in a sling. SKIN: Left leg fasciotomy sites dressings intact. Left upper thigh incision with steristrips intact. NEUROLOGICAL EXAM: Normal sensation x3. Impaired sensation in left leg below the knee. Trace left toe flexion and otherwise 0/5 left foot/ankle. Exam of rest of LLE motor limited by restrictions. RLE and LUE motor 5/5. RUE motor 5/ 5 in hand and wrist with rest of exam limited by sling. 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 1. Status post popliteal bypass: Hold on Plavix until after she has had surgery with potential skin grafting with the [facility]. She had followup with Vascular Surgery 06/03/2019 with sutures removed. 2. Left knee dislocation with ligament tears: Continue with non-weight bearing precautions to the left lower extremity. Continue with brace on her left leg locked to 20 degrees of flexion. Range of motion and stretching of her left foot /ankle at least 5 times per day to prevent contracture. Multipodus boot when in bed. 3. Right Humerus Fracture: Sling for RUE. Begin AROM and PROM of right elbow and strengthening of wrist and hand. f/u with ortho. 3. Status post LLE fasciotomy with open wounds: Continue with moist to dry dressings b.i.d. to the left leg with ANIL wrap. Saw Dr. Jones in plastic surgery on 06/03/2019 and will see again on 06/23 at 1pm. Per patient he did not think the medial wound was ready for skin graft yet and it giving it more time. 4. Acute blood loss anemia: stable. Hb 8.6. Follow routine labs. 5. 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 Multi Podus boot on LLE when she is in bed. 6. Acute renal failure: Cr now 1.07. Routine labs. 7. Impaired mobility: PT for transfer, bed mobility, and short distance gait training using a margareth walker and wheelchair. 8. Impaired self-care: OT for ADL training and equipment evaluation. Family training as appropriate. 9. Advance directives: She is a full code. Her , Bradley Ashraf, is surrogate decision maker. 10. Vitamin D deficiency: has own supplement of 5000iu daily. 06/05/19 09:39
[2019-06-05] MEDS: [UNRECOGNIZED DRUG - OTHER] PO SCH (17:21)
[2019-06-05] MEDS: [UNRECOGNIZED DRUG - OTHER] PO SCH (17:21)
[2019-06-05] MEDS: Senna TAB 8.6 mg* TAB PO PRN (21:14)
[2019-06-05] MEDS: Polyethylene Glycol 3350* 17 GM PACKET PO SCH (21:14)
[2019-06-05] MEDS: [UNRECOGNIZED DRUG - OTHER] PO PRN (22:01)
[2019-06-05] MEDS: DOXYLAMINE PO PRN (22:01)
[2019-06-06] MEDS: Heparin VIAL(*) 5000 UNITS/ML VIAL (FIVE THOUSAND) SUBCUT SCH ×3 (05:49→21:13)
[2019-06-06] MEDS: Multivitamins/Minerals TAB PO SCH (10:04)
[2019-06-06] MEDS: Docusate CAP* 100 MG PO SCH ×2 (10:04→21:11)
[2019-06-06] MEDS: amLODIPine TAB* 5 MG PO SCH (10:04)
[2019-06-06] MEDS: [UNRECOGNIZED DRUG - OTHER] PO SCH ×2 (10:05→17:04)
[2019-06-06] MEDS: [UNRECOGNIZED DRUG - OTHER] PO SCH ×2 (10:06→17:04)
[2019-06-06] MEDS: [UNRECOGNIZED DRUG - OTHER] PO SCH (17:04)
[2019-06-06] MEDS: [UNRECOGNIZED DRUG - OTHER] PO SCH (17:04)
--- NOTE | 2019-06-06 18:50 | PN ---
Progress Note Date of Service: 06/06/19 Note: JI ASHRAF was visited. Therapy notes read and reviewed. She has no complaints and thinks things are going well. Current Medications: Active Medications Generic Name Dose Route Start Last Admin Trade Name Freq PRN Reason Stop Dose Admin Acetaminophen 650 mg 05/20/19 14:51 Tylenol Tab* PO Q6H PRN PAIN - MODERATE Al Hydrox/Mg Hydrox/Simethicone 30 ml 05/20/19 14:06 05/30/19 13:13 Maalox Plus* PO 30 ml Q6H PRN Administration INDIGESTION Amlodipine Besylate 5 mg 05/21/19 09:00 06/06/19 10:04 Norvasc Tab* PO 5 mg DAILY CANDIDO Administration Bisacodyl 10 mg 05/20/19 14:06 06/02/19 19:12 Dulcolax Supp* WI 10 mg DAILY PRN Administration CONSTIPATION Docusate Sodium 100 mg 05/20/19 21:00 06/06/19 10:04 Colace Cap* PO 100 mg BID CANDIDO Administration Heparin Sodium (Porcine) 5,000 units 05/20/19 22:00 06/06/19 14:14 Heparin Vial(*) SUBCUT 5,000 units Q8HR CANDIDO Administration Magnesium Hydroxide 30 ml 05/20/19 14:06 06/04/19 17:44 Milk Of Magnesia Liq* PO 15 ml Q6H PRN Administration CONSTIPATION Multivitamins/Minerals 1 tab 05/21/19 09:00 06/06/19 10:04 Theragran/Minerals Tab* PO 1 tab DAILY CANDIDO Administration Pto - Sleep Aid ( 1 dose 05/21/19 17:58 06/05/19 22:01 Doxylamine 25 Mg) PO 1 dose BEDTIME PRN Administration SLEEP Pto - Super C Mvi 1 dose 05/22/19 18:00 06/06/19 17:04 PO 1 dose BID WITH MEALS CANDIDO Administration Pto - Inner Defense 1 cap 05/22/19 17:00 06/06/19 17:04 Supplement 1 Cap PO 1 cap 0900,1700 CANDIDO Administration Pto - Vitamin De 5,000 units 05/27/19 17:00 06/06/19 17:04 Gold 5,000 Units PO 5,000 units 1700 CANDIDO Administration Pto - Super B Mvi 1 dose 05/27/19 17:00 06/06/19 17:04 Supplement PO 1 dose 1700 CANDIDO Administration Ondansetron HCl 4 mg 05/30/19 14:54 05/30/19 16:01 Zofran Odt Tab* PO 4 mg Q6H PRN Administration NAUSEA Oxycodone HCl 5 mg 05/20/19 14:17 Roxycodone Tab* PO Q4H PRN PAIN - SEVERE Polyethylene Glycol/Electrolytes 17 gm 05/26/19 21:00 06/05/19 21:14 Miralax* PO Not Given BEDTIME CANDIDO Senna 2 tab 05/20/19 14:06 06/05/19 21:14 Senokot 8.6 Mg Tab* PO 2 tab BEDTIME PRN Administration CONSTIPATION Vital Signs: Vital Signs Temp Pulse Resp BP Pulse Ox 98.1 F 78 18 144/67 99 06/06/19 16:46 06/06/19 16:46 06/06/19 16:46 06/06/19 16:46 06/06/19 17:30 Exam: GENERAL: No acute distress. Alert and appropriate. LUNGS: Clear to auscultation bilaterally. HEART: Regular rate and rhythm. ABDOMEN: Active bowel sounds. Soft, nontender, nondistended. EXTREMITIES: Pedal edema. +DP/PT pulses bilaterally. Left leg brace locked at 20 degrees of flexion. Right arm in a sling. SKIN: Left leg fasciotomy sites dressings intact. Left upper thigh incision with steristrips intact. NEUROLOGICAL EXAM: Normal sensation x3. Impaired sensation in left leg below the knee. Trace left toe flexion and otherwise 0/5 left foot/ankle. Exam of rest of LLE motor limited by restrictions. RLE and LUE motor 5/5. RUE motor 5/ 5 in hand and wrist with rest of exam limited by sling. 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 1. Status post popliteal bypass: Hold on Plavix until after she has had surgery with potential skin grafting with the [facility]. She had followup with Vascular Surgery 06/03/2019 with sutures removed. 2. Left knee dislocation with ligament tears: Continue with non-weight bearing precautions to the left lower extremity. Continue with brace on her left leg locked to 20 degrees of flexion. Range of motion and stretching of her left foot /ankle at least 5 times per day to prevent contracture. Multipodus boot when in bed. 3. Right Humerus Fracture: Sling for RUE. AROM and PROM of right elbow and strengthening of wrist and hand. f/u with ortho. 3. Status post LLE fasciotomy with open wounds: Continue with moist to dry dressings b.i.d. to the left leg with ANIL wrap. Saw Dr. Jones in plastic surgery on 06/03/2019 and will see again on 06/23 at 1pm. Per patient he did not think the medial wound was ready for skin graft yet and it giving it more time. 4. Acute blood loss anemia: stable. Hb 8.6. Follow routine labs. 5. 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 Multi Podus boot on LLE when she is in bed. 6. Acute renal failure: Cr now 1.07. Routine labs. 7. Impaired mobility: PT for transfer, bed mobility, and short distance gait training using a margareth walker and wheelchair. 8. Impaired self-care: OT for ADL training and equipment evaluation. Family training as appropriate. 9. Advance directives: She is a full code. Her , Bradley Ashraf, is surrogate decision maker. 10. Vitamin D deficiency: has own supplement of 5000iu daily. 06/06/19 18:51
[2019-06-06] MEDS: DOXYLAMINE PO PRN (21:11)
[2019-06-06] MEDS: Senna TAB 8.6 mg* TAB PO PRN (21:11)
[2019-06-06] MEDS: [UNRECOGNIZED DRUG - OTHER] PO PRN (21:11)
[2019-06-06] MEDS: Polyethylene Glycol 3350* 17 GM PACKET PO SCH (21:17)
[2019-06-07] MEDS: Heparin VIAL(*) 5000 UNITS/ML VIAL (FIVE THOUSAND) SUBCUT SCH ×3 (05:02→21:24)
[2019-06-07] MEDS: [UNRECOGNIZED DRUG - OTHER] PO SCH ×2 (08:42→17:04)
[2019-06-07] MEDS: [UNRECOGNIZED DRUG - OTHER] PO SCH ×2 (08:42→17:04)
[2019-06-07] MEDS: amLODIPine TAB* 5 MG PO SCH (08:42)
[2019-06-07] MEDS: Multivitamins/Minerals TAB PO SCH (08:42)
[2019-06-07] MEDS: Docusate CAP* 100 MG PO SCH ×2 (08:42→19:39)
--- NOTE | 2019-06-07 12:35 | PMRUTEAM ---
PMRU: Team Meeting Current Status: Physical Therapy: Current Status Current Rolling Status Supervision/Touching Current Supine <-> Sit Status Supervision/Touching Current Sit <-> Stand Status Dependent Current Bed <-> Chair Status Dependent Transfer/Bed Mobility Larry Walker,Slide Board Recommended Devices Transfer Mobility Comment minAx2 with HW/gait belt Current Picking Up Object Not attempted Status Current Car Transfer Status Dependent Current Ambulation Assistance Not attempted Status Manual Wheelchair Control/ Right UE Technique Current Wheelchair Propulsion Independent Ability Status Wheelchair Distance (ft) 150' Current Stair Climbing Status Not attempted Current Curb Assistance Status Not attempted Objective Comments WC propulsion over even surfaces with >2 turns with use of LUE/RLE to propel. Occupational Therapy: Current Status Current Upper Body Dressing Partial/Moderate Status Current Lower Body Dressing Dependent Status Current Footwear Status Dependent Current Bathing Status Partial/Moderate Current Grooming Status Partial/Moderate Current Toileting Status Dependent Current Toilet Transfer Status Partial/Moderate Current Eating Status Setup or Clean-up Assist Nursing: Current Status Skin Deviations [Left Knee] Bruise Skin Deviations [Left Lower Abrasion Arm] Skin Deviations [Right Arm] Bruise Skin Deviations [Left Lower Incision Leg] Skin Deviations [Left Upper Incision Thigh] Skin Deviations [Right Groin] Previous Access Point Skin Deviations [Coccyx] Skin Tear Skin Deviation Description [ knee immoblizer in place Left Knee] Skin Deviation Description [ sling in place Right Arm] Skin Deviation Description [ knee immobilizer and multipodus boot in place Left Lower Leg] Skin Deviation Description [ steri strips in place Left Upper Thigh] Skin Deviation Description [ scabs Right Groin] Skin Deviation Description [ barrier cream applied Coccyx] Bladder Current Status using bedpan to void. dribbling Bowel Current Status colace given. bm this am Nutrition Current Status appetite good Medication Current Status no pain meds given Rec Therapy: Current Status Summary of Assessment and Recreation therapy assessment complete and pt is Clinical Impression aware of services. Pt is open to continued leisure visits, pet therapy, and is participating in independent leisure interests in her room. Treatment Goals Pt will engage in leisure activities while on the unit as tolerated Treatment Plan Provide recreation therapy services and encourge involvement Social Work: Current Status Discharge Plan Return home with home care svs and family support Potential for Family Training TBD, most of pt's family live out of town Anticipated Discharge Home Destination Discharge With home care svs and family support Nutrition: Current Status Monitoring Pt continues on regular unrestricted diet w/ noted good intake; consumed 95% B, 100% L today. Chart reviewed: no noted development in GI s/sx (last BM 06/03 per chart; receiving bowel regimen); recommend continuing bowel regimen as indicated; will monitor GI s/sx for development. Pt remains w / increased nutrient needs for wound healing; estimated nutrient needs established below. Will continue to monitor intakes and offer nourishments /supplements as indicated. Labs reviewed (06/01): Cr 1.07, Electrolytes WNL; BG 107 (appropriate); will continue to monitor labs. Agree w/ current diet order. Will continue to monitor and provide further nutrition intervention as indicated. Goals: Physical Therapy: Goals Goals to Be Accomplished in ( 21-28 Days) Goal: Rolling Assistance Independent Goal Supine <-> Sit Status Independent Goal Sit <-> Stand Status Supervision/Touching Goal Bed <-> Chair Status Supervision/Touching Transfer/Bed Mobility Larry Walker Recommended Devices Goal: Picking Up Object Supervision/Touching Goal: Car Transfer Status Partial/Moderate Goal: Ambulation Assistance Not attempted Goal: Wheelchair Propulsion Independent Ability Wheelchair Distance (ft) 150' x 2 L ue and R le Goal: Stairs Assistance Not attempted Goal: Curb Assistance Not attempted Goal: Home Exercise Program Independent Assistance Occupational Therapy: Goals Goals to be Completed in (Days 21-28 days ) Goal Upper Body Dressing Independent Routine Goal Lower Body Dressing Independent Routine Goal Footwear Status Independent Goal Bathing Routine (OT) Independent Goal Grooming Routine Independent Goal Toilet Hygiene and Independent Clothing Management Routine Goal Toilet Transfer Routine Independent Goal Functional Transfers for Independent ADL Goal Feeding Routine Independent Goal Light Housekeeping Tasks Independent Nutrition: Goals Intervention Goals 1) Adequate po intake to support lean body mass, wound healing, and hydration status 2) Maintain fluid/electrolyte balance w/ adequate po intake 3) Maintain bowel regularity w/ adequate po intake and bowel regimen w/o development of diarrhea/ constipation Social Work: Goals Discharge Plan Return home with home care svs and family support Potential for Family Training TBD, most of pt's family live out of town Anticipated Discharge Home Destination Discharge With home care svs and family support Nursing: Goals Bladder Goal supervision Bowel Goal supervision Nutrition Goal 100% of all meals consumed Medication Goal independent Care Plan: Care Plan ADL's - Improve/Maintain Start: 05/20/19 16:10 Freq: DAILY@[id number],1900 Status: Active Target: 05/21/19 Protocol: Activity Type Activity Date Activity User E-Sign Co-Sign Detail Recorded Client Recorded Date Recorded By Document 06/06/19 11:43 [id number] 06/06/19 11:43 [id number] 06/06/19 11:43 PMRU Outcome: ADL's/ADL Transfers Orders/Interventions Occupational Therapy Evaluation & Treatment Communication Tool in Patient Room Device Yes Address Deficits Secondary To: s/p fall with left knee dislocation and R humerus fx Patient to receive OT 5x/wk for 60-120 Therex min/day Self Care Management Group Therapy UE/LE ADL's with Assist Yes ADL Transfers with Assist Yes Toileting: Transfers,Clothing Management Yes ,Hygeine w/Assist Progression Toward Outcome/Goals Not Progressing Lack of Progression Comment Pt participated well in treatment session, continues to be limited due to NWB RUE/LLE. Educated by this feature writer this date for goal to work toward commode transfers this week and pt was in agreement. Cardiovascular- Improve/Maintain Start: 05/20/19 16:10 Freq: DAILY@ Status: Active Target: 06/17/19 Protocol: Activity Type Activity Date Activity User E-Sign Co-Sign Detail Recorded Client Recorded Date Recorded By Document 06/07/19 07:00 [id number] 06/07/19 10:55 [id number] 06/07/19 07:00 PMRU Outcome: Cardiovascular Vital Signs q Shift for 48hrs Then BID Yes Daily Weight Ordered No Current Cardiovascular Outcome/Goal Maintain/ Achieve Baseline HR, BP , Perfusion Progression Toward Outcome/Goal Progressing DVT Prophylaxis- Improve/Maintain Start: 05/20/19 16:10 Freq: DAILY@ Status: Active Target: 06/17/19 Protocol: Activity Type Activity Date Activity User E-Sign Co-Sign Detail Recorded Client Recorded Date Recorded By Document 06/07/19 07:00 [id number] 06/07/19 10:55 [id number] 06/07/19 07:00 PMRU Outcome: DVT Prophylaxis Current DVT Outcome/Goals Remains Free of DVT Complies with DVT Prophylaxis /Treatment Demonstrates Knowledge of DVT Prevention/ Treatment Progression Toward Outcome/Goals Progressing Discharge Planning - Improve/Maintain Start: 05/20/19 16:10 Freq: [id number]@[id number] Status: Active Target: 06/17/19 Protocol: Activity Type Activity Date Activity User E-Sign Co-Sign Detail Recorded Client Recorded Date Recorded By Document 06/07/19 07:00 [id number] 06/07/19 10:55 [id number] 06/07/19 07:00 PMRU Outcome: Discharge Planning Update Patient Family No: not present this shift Current Discharge Planning Outcome/Goals Demonstrates Understanding of Discharge Plan Homecare Referral - See Comment Progression Toward Outcome/Goals Progressing Education-Improve/Maintain Start: 05/20/19 16:10 Freq: [id number]@[id number] Status: Active Target: 06/17/19 Protocol: Activity Type Activity Date Activity User E-Sign Co-Sign Detail Recorded Client Recorded Date Recorded By Document 06/07/19 07:00 [id number] 06/07/19 10:55 [id number] 06/07/19 07:00 PMRU Outcome: Education Current Education Outcome/Goals Demonstrate/ Verbalize Understanding of Written Discharge Instructions Demonstrates Skills Encourage Questions Progression Toward Outcome/Goals Progressing Mobility- Improve/Maintain Start: 05/20/19 16:10 Freq: DAILY@[id number] Status: Active Target: 05/21/19 Protocol: Activity Type Activity Date Activity User E-Sign Co-Sign Detail Recorded Client Recorded Date Recorded By Document 06/06/19 15:50 [id number] 06/06/19 15:50 [id number] 06/06/19 15:50 PMRU Outcome: Mobility Physical Therapy Evaluation and Yes Treatment Activity OOB with Assistance Yes WBAT No NWB Yes: NWB RUE/ LLE TTWB No Device Yes Assistance Yes Patient to be seen 5x/wk for 60-120 min/ Therex day for: Mobility Training W/C Mobility Balance Other Other Therapy Comment discharge training, discharge planning Current Mobility Outcome/Goals Improve Mobility Status Demonstrates Proper Use of Assistive Devices Progression Toward Outcome/Goals Progressing Bed Mobility Yes: independent Transfers Yes: supervision with SB or HW Gait x ft No W/C Mobility x ft Yes: independent 150 ' Up/Down Stairs No: ramp entrance recommended With HEP Yes: independent Rec Therapy- Improve/Maintain Start: 05/23/19 14:49 Freq: DAILY@00,1900 Status: Active Target: 06/21/19 Protocol: Activity Type Activity Date Activity User E-Sign Co-Sign Detail Recorded Client Recorded Date Recorded By Document 06/03/19 15:47 [id number] [email or web address] 06/03/19 15:48 [id number] 06/03/19 15:47 PMRU Outcome: Recreation Therapy Current Rec Ther Outcome/Goals Complete Rec Therapy Assessment Meet with Patient Regularly for Support Encourage Leisure Involvement Progression Toward Outcome/Goals Progressing Safety- Improve/Maintain Start: 05/20/19 14:55 Freq: DAILY@ Status: Active Target: 06/17/19 Protocol: Activity Type Activity Date Activity User E-Sign Co-Sign Detail Recorded Client Recorded Date Recorded By Document 06/07/19 07:00 [id number] 06/07/19 10:55 [id number] 06/07/19 07:00 PMRU Outcome: Safety Current Safety Outcome/Goals Remain Free of Injury or Harm Cooperates with Safety Measures for Least Restrictive Environment Prevent Falls/ Injury Progression Toward Outcome/Goals Progressing Skin- Improve/Maintain Start: 05/20/19 16:10 Freq: DAILY@ Status: Active Target: 06/17/19 Protocol: Activity Type Activity Date Activity User E-Sign Co-Sign Detail Recorded Client Recorded Date Recorded By Document 06/07/19 07:00 [id number] 06/07/19 10:55 [id number] 06/07/19 07:00 PMRU Outcome: Skin Skin Risk Level No Risk Skin Orders Dressing Change Skin Orders Comment fasciotomy site drsgs x2 changes BID Current Skin Outcome/Goals Maintain/ Improve Skin Integrity Free from Pressure Injury Surgical Incisions Healing Progression Toward Outcome/Goals Progressing - Interdisciplinary Staff Present Supply Planner/Social Work Staff Present: Katy Gaxiola LMSW Nursing Staff Present: Neyda Aguirre LPN OT Staff Present: Mona Smart PT Staff Present: Gabi Beverly Medicine Note: Length of Stay: 2 weeks Anticipated Discharge Destination: Home Tentative Discharge Date: 06/21/2019 Discharged to: Home
[2019-06-07] MEDS: Ondansetron ODT TAB* 4 MG PO PRN (12:55)
[2019-06-07] MEDS: [UNRECOGNIZED DRUG - OTHER] PO SCH (17:04)
[2019-06-07] MEDS: [UNRECOGNIZED DRUG - OTHER] PO SCH (17:04)
--- NOTE | 2019-06-07 17:45 | PN ---
Progress Note Date of Service: 06/07/19 Note: JI ASHRAF was visited. Therapy notes read and reviewed. She was discussed in interdisciplinary team rounds. She had an upset stomach today but does not want a PPI. She can probably transition to Lovenox as her renal function normalized Current Medications: Active Medications Generic Name Dose Route Start Last Admin Trade Name Freq PRN Reason Stop Dose Admin Acetaminophen 650 mg 05/20/19 14:51 Tylenol Tab* PO Q6H PRN PAIN - MODERATE Al Hydrox/Mg Hydrox/Simethicone 30 ml 05/20/19 14:06 05/30/19 13:13 Maalox Plus* PO 30 ml Q6H PRN Administration INDIGESTION Amlodipine Besylate 5 mg 05/21/19 09:00 06/07/19 08:42 Norvasc Tab* PO 5 mg DAILY CANDIDO Administration Bisacodyl 10 mg 05/20/19 14:06 06/02/19 19:12 Dulcolax Supp* [place] 10 mg DAILY PRN Administration CONSTIPATION Docusate Sodium 100 mg 05/20/19 21:00 06/07/19 08:42 Colace Cap* PO 100 mg BID CANDIDO Administration Heparin Sodium (Porcine) 5,000 units 05/20/19 22:00 06/07/19 15:10 Heparin Vial(*) SUBCUT 5,000 units Q8HR CANDIDO Administration Magnesium Hydroxide 30 ml 05/20/19 14:06 06/04/19 17:44 Milk Of Magnesia Liq* PO 15 ml Q6H PRN Administration CONSTIPATION Multivitamins/Minerals 1 tab 05/21/19 09:00 06/07/19 08:42 Theragran/Minerals Tab* PO 1 tab DAILY CANDIDO Administration Pto - Sleep Aid ( 1 dose 05/21/19 17:58 06/06/19 21:11 Doxylamine 25 Mg) PO 1 dose BEDTIME PRN Administration SLEEP Pto - Super C Mvi 1 dose 05/22/19 18:00 06/07/19 17:04 PO Not Given BID WITH MEALS CANDIDO Pto - Inner Defense 1 cap 05/22/19 17:00 06/07/19 17:04 Supplement 1 Cap PO Not Given 0900,1700 CANDIDO Pto - Vitamin De 5,000 units 05/27/19 17:00 06/07/19 17:04 Gold 5,000 Units PO Not Given 1700 [facility] Pto - Super B Mvi 1 dose 05/27/19 17:00 06/07/19 17:04 Supplement PO Not Given 1700 [facility] Ondansetron HCl 4 mg 05/30/19 14:54 06/07/19 12:55 Zofran Odt Tab* PO 4 mg Q6H PRN Administration NAUSEA Oxycodone HCl 5 mg 05/20/19 14:17 Roxycodone Tab* PO Q4H PRN PAIN - SEVERE Polyethylene Glycol/Electrolytes 17 gm 05/26/19 21:00 06/06/19 21:17 Miralax* PO Not Given BEDTIME CANDIDO Senna 2 tab 05/20/19 14:06 06/06/19 21:11 Senokot 8.6 Mg Tab* PO 2 tab BEDTIME PRN Administration CONSTIPATION Vital Signs: Vital Signs Temp Pulse Resp BP Pulse Ox 98.1 F 80 14 147/64 100 06/07/19 14:29 06/07/19 14:29 06/07/19 14:29 06/07/19 14:29 06/07/19 16:05 Exam: GENERAL: No acute distress. Alert and appropriate. LUNGS: Clear to auscultation bilaterally. HEART: Regular rate and rhythm. ABDOMEN: Active bowel sounds. Soft, nontender, nondistended. EXTREMITIES: Pedal edema. +DP/PT pulses bilaterally. Left leg brace locked at 20 degrees of flexion. Right arm in a sling. SKIN: Left leg fasciotomy sites dressings intact. Left upper thigh incision with steristrips intact. NEUROLOGICAL EXAM: Normal sensation x3. Impaired sensation in left leg below the knee. Trace left toe flexion and otherwise 0/5 left foot/ankle. Exam of rest of LLE motor limited by restrictions. RLE and LUE motor 5/5. RUE motor 5/ 5 in hand and wrist with rest of exam limited by sling. 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 1. Status post popliteal bypass: Hold on Plavix until after she has had surgery with potential skin grafting with the [facility]. She had followup with Vascular Surgery 06/03/2019 with sutures removed. 2. Left knee dislocation with ligament tears: Continue with non-weight bearing precautions to the left lower extremity. Continue with brace on her left leg locked to 20 degrees of flexion. Range of motion and stretching of her left foot /ankle at least 5 times per day to prevent contracture. Multipodus boot when in bed. 3. Right Humerus Fracture: Sling for RUE. AROM and PROM of right elbow and strengthening of wrist and hand. f/u with ortho. 3. Status post LLE fasciotomy with open wounds: Continue with moist to dry dressings b.i.d. to the left leg with ANIL wrap. Saw Dr. Jones in plastic surgery on 06/03/2019 and will see again on 06/23 at 1pm. Per patient he did not think the medial wound was ready for skin graft yet and it giving it more time. 4. Acute blood loss anemia: stable. Hb 8.6. Follow routine labs. 5. 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 Multi Podus boot on LLE when she is in bed. 6. Acute renal failure: Cr now 1.07. Routine labs. 7. Impaired mobility: PT for transfer, bed mobility, and short distance gait training using a margareth walker and wheelchair. 8. Impaired self-care: OT for ADL training and equipment evaluation. Family training as appropriate. 9. Advance directives: She is a full code. Her , Bradley Ashraf, is surrogate decision maker. 10. Vitamin D deficiency: has own supplement of 5000iu daily. 11. DVT prophylaxis: Lovenox. D/C S/Q Heparin 06/07/19 17:45
[2019-06-07] MEDS: Polyethylene Glycol 3350* 17 GM PACKET PO SCH (19:39)
[2019-06-07] MEDS: DOXYLAMINE PO PRN (21:29)
[2019-06-07] MEDS: [UNRECOGNIZED DRUG - OTHER] PO PRN (21:29)
[2019-06-08 05:00] LABS: ABS Basophils 0.1 10^3/ul (0-0.2); ABS Eosinophils 0.3 10^3/ul (0-0.6); ABS Lymphocytes 1.8 10^3/ul (1.0-4.8); ABS Monocytes 0.8 10^3/ul (0-0.8); ABS Neutrophils 3.7 10^3/ul (1.5-7.7); Eosinophil % 4.4 %; Hematocrit 25 % (35-47); Hemoglobin 8.6 g/dL (12.0-16.0); Lymphocyte % 26.8 %; Mean Corpuscular HGB Conc 34 g/dL (31-36); Mean Corpuscular Hemoglobin 30 pg (27-31); Mean Corpuscular Volume 87 fL (80-97); Mean Platelet Volume 8.2 fL (7.4-10.4); Platelet Count 162 10^3/uL (150-450); Red Blood Count 2.89 10^6 /uL (3.70-4.87); Red Cell Distribution Width 16 % (10-15); White Blood Count 6.6 10^3/uL (3.5-10.8)
[2019-06-08 05:15] LABS: Albumin 2.7 g/dL (3.2-5.2); BUN/Creatinine Ratio 13.4 (8-20); Calcium 8.5 mg/dL (8.6-10.3); EGFR Non-African American 57.8 (>60); Globulin 2.7 g/dL (2-4); Potassium 3.9 mmol/L (3.5-5.0); Total Bilirubin 0.4 mg/dL (0.2-1.0); Total Protein 5.4 g/dL (6.4-8.9)
[2019-06-08] MEDS: amLODIPine TAB* 5 MG PO SCH (09:00)
[2019-06-08] MEDS: Docusate CAP* 100 MG PO SCH ×2 (09:00→21:06)
[2019-06-08] MEDS: Enoxaparin(*) 40 MG/0.4 ML SYR SUBCUT SCH (09:01)
[2019-06-08] MEDS: Multivitamins/Minerals TAB PO SCH (09:01)
[2019-06-08] MEDS: [UNRECOGNIZED DRUG - OTHER] PO SCH ×2 (09:02→17:02)
[2019-06-08] MEDS: [UNRECOGNIZED DRUG - OTHER] PO SCH ×2 (09:02→17:03)
[2019-06-08] MEDS: [UNRECOGNIZED DRUG - OTHER] PO SCH (17:02)
[2019-06-08] MEDS: [UNRECOGNIZED DRUG - OTHER] PO SCH (17:02)
--- NOTE | 2019-06-08 20:06 | PN ---
Progress Note Date of Service: 06/08/19 Note: JI ASHRAF was visited. Therapy notes read and reviewed. She has no complaints. Her Cr is now 0.97 and looks to be normalizing. Have begun lovenox instead of Heparin Current Medications: Active Medications Generic Name Dose Route Start Last Admin Trade Name Freq PRN Reason Stop Dose Admin Acetaminophen 650 mg 05/20/19 14:51 Tylenol Tab* PO Q6H PRN PAIN - MODERATE Al Hydrox/Mg Hydrox/Simethicone 30 ml 05/20/19 14:06 05/30/19 13:13 Maalox Plus* PO 30 ml Q6H PRN Administration INDIGESTION Amlodipine Besylate 5 mg 05/21/19 09:00 06/08/19 09:00 Norvasc Tab* PO 5 mg DAILY CANDIDO Administration Bisacodyl 10 mg 05/20/19 14:06 06/02/19 19:12 Dulcolax Supp* [place] 10 mg DAILY PRN Administration CONSTIPATION Docusate Sodium 100 mg 05/20/19 21:00 06/08/19 09:00 Colace Cap* PO Not Given BID CANDIDO Enoxaparin Sodium 40 mg 06/08/19 09:00 06/08/19 09:01 Lovenox(*) SUBCUT 40 mg Q24H CANDIDO Administration Magnesium Hydroxide 30 ml 05/20/19 14:06 06/04/19 17:44 Milk Of Magnesia Liq* PO 15 ml Q6H PRN Administration CONSTIPATION Multivitamins/Minerals 1 tab 05/21/19 09:00 06/08/19 09:01 Theragran/Minerals Tab* PO 1 tab DAILY CANDIDO Administration Pto - Sleep Aid ( 1 dose 05/21/19 17:58 06/07/19 21:29 Doxylamine 25 Mg) PO 1 dose BEDTIME PRN Administration SLEEP Pto - Super C Mvi 1 dose 05/22/19 18:00 06/08/19 17:02 PO 1 dose BID WITH MEALS CANDIDO Administration Pto - Inner Defense 1 cap 05/22/19 17:00 06/08/19 17:03 Supplement 1 Cap PO 1 cap 0900,1700 CANDIDO Administration Pto - Vitamin De 5,000 units 05/27/19 17:00 06/08/19 17:02 Gold 5,000 Units PO 5,000 units 1700 CANDIDO Administration Pto - Super B Mvi 1 dose 05/27/19 17:00 06/08/19 17:02 Supplement PO 1 dose 1700 CANDIDO Administration Ondansetron HCl 4 mg 05/30/19 14:54 06/07/19 12:55 Zofran Odt Tab* PO 4 mg Q6H PRN Administration NAUSEA Oxycodone HCl 5 mg 05/20/19 14:17 Roxycodone Tab* PO Q4H PRN PAIN - SEVERE Polyethylene Glycol/Electrolytes 17 gm 05/26/19 21:00 06/07/19 19:39 Miralax* PO Not Given BEDTIME CANDIDO Senna 2 tab 05/20/19 14:06 06/06/19 21:11 Senokot 8.6 Mg Tab* PO 2 tab BEDTIME PRN Administration CONSTIPATION Vital Signs: Vital Signs Temp Pulse Resp BP Pulse Ox 98.3 F 91 18 145/72 100 06/08/19 16:29 06/08/19 16:29 06/08/19 16:29 06/08/19 16:29 06/08/19 18:15 Lab Results: Laboratory Results - last 24 hr 06/08/19 06/08/19 04:49 04:49 WBC 6.6 RBC 2.89 L Hgb 8.6 L Hct 25 L MCV 87 MCH 30 MCHC 34 RDW 16 H Plt Count 162 MPV 8.2 Neut % (Auto) 56.4 Lymph % (Auto) 26.8 Chase % (Auto) 11.6 Eos % (Auto) 4.4 Baso % (Auto) 0.8 Absolute Neuts (auto) 3.7 Absolute Lymphs (auto) 1.8 Absolute Monos (auto) 0.8 Absolute Eos (auto) 0.3 Absolute Basos (auto) 0.1 Absolute Nucleated RBC 0.0 Nucleated RBC % 0.0 Sodium 137 Potassium 3.9 Chloride 103 Carbon Dioxide 29 Anion Gap 5 BUN 13 Creatinine 0.97 H Est GFR ( Amer) 70.0 Est GFR (Non-Af Amer) 57.8 BUN/Creatinine Ratio 13.4 Glucose 102 H Calcium 8.5 L Total Bilirubin 0.40 AST 13 ALT 13 Alkaline Phosphatase 49 Total Protein 5.4 L Albumin 2.7 L Globulin 2.7 Albumin/Globulin Ratio 1.0 Exam: GENERAL: No acute distress. Alert and appropriate. LUNGS: Clear to auscultation bilaterally. HEART: Regular rate and rhythm. ABDOMEN: Active bowel sounds. Soft, nontender, nondistended. EXTREMITIES: Pedal edema. +DP/PT pulses bilaterally. Left leg brace locked at 20 degrees of flexion. Right arm in a sling. SKIN: Left leg fasciotomy sites dressings removed with nursing, wounds clean. Left upper thigh incision with steristrips intact. NEUROLOGICAL EXAM: Normal sensation x3. Impaired sensation in left leg below the knee. Trace left toe flexion and otherwise 0/5 left foot/ankle. Exam of rest of LLE motor limited by restrictions. RLE and LUE motor 5/5. RUE motor 5/ 5 in hand and wrist with rest of exam limited by sling. 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 1. Status post popliteal bypass: Hold on Plavix until after she has had surgery with potential skin grafting with the [facility]. She had followup with Vascular Surgery 06/03/2019 with sutures removed. 2. Left knee dislocation with ligament tears: Continue with non-weight bearing precautions to the left lower extremity. Continue with brace on her left leg locked to 20 degrees of flexion. Range of motion and stretching of her left foot /ankle at least 5 times per day to prevent contracture. Multipodus boot when in bed. 3. Right Humerus Fracture: Sling for RUE. AROM and PROM of right elbow and strengthening of wrist and hand. f/u with ortho. 3. Status post LLE fasciotomy with open wounds: Continue with moist to dry dressings b.i.d. to the left leg with ANIL wrap. Saw Dr. Jones in plastic surgery on 06/03/2019 and will see again on 06/23 at 1pm. Per patient he did not think the medial wound was ready for skin graft yet and it giving it more time. 4. Acute blood loss anemia: stable. Hb 8.6. Follow routine labs. 5. 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 Multi Podus boot on LLE when she is in bed. 6. Acute renal failure: Cr now 1.07. Routine labs. 7. Impaired mobility: PT for transfer, bed mobility, and short distance gait training using a margareth walker and wheelchair. 8. Impaired self-care: OT for ADL training and equipment evaluation. Family training as appropriate. 9. Advance directives: She is a full code. Her , Bradley Ashraf, is surrogate decision maker. 10. Vitamin D deficiency: has own supplement of 5000iu daily. 11. DVT prophylaxis: Lovenox. 06/08/19 20:07
[2019-06-08] MEDS: Polyethylene Glycol 3350* 17 GM PACKET PO SCH (20:22)
[2019-06-08] MEDS: Senna TAB 8.6 mg* TAB PO PRN (21:06)
[2019-06-09] MEDS: [UNRECOGNIZED DRUG - OTHER] PO SCH ×2 (09:39→17:21)
[2019-06-09] MEDS: Multivitamins/Minerals TAB PO SCH (09:39)
[2019-06-09] MEDS: amLODIPine TAB* 5 MG PO SCH (09:39)
[2019-06-09] MEDS: [UNRECOGNIZED DRUG - OTHER] PO SCH ×2 (09:39→17:21)
[2019-06-09] MEDS: Enoxaparin(*) 40 MG/0.4 ML SYR SUBCUT SCH (09:39)
[2019-06-09] MEDS: Docusate CAP* 100 MG PO SCH ×2 (09:39→21:19)
[2019-06-09] MEDS: [UNRECOGNIZED DRUG - OTHER] PO SCH (17:22)
[2019-06-09] MEDS: [UNRECOGNIZED DRUG - OTHER] PO SCH (17:22)
--- NOTE | 2019-06-09 18:08 | PN ---
Progress Note Date of Service: 06/09/19 Note: JI ASHRAF was visited. Therapy notes read and reviewed. She is tolerating Lovenox and seems to be doing well. Her daughters are coming tomorrow Current Medications: Active Medications Generic Name Dose Route Start Last Admin Trade Name Freq PRN Reason Stop Dose Admin Acetaminophen 650 mg 05/20/19 14:51 Tylenol Tab* PO Q6H PRN PAIN - MODERATE Al Hydrox/Mg Hydrox/Simethicone 30 ml 05/20/19 14:06 05/30/19 13:13 Maalox Plus* PO 30 ml Q6H PRN Administration INDIGESTION Amlodipine Besylate 5 mg 05/21/19 09:00 06/09/19 09:39 Norvasc Tab* PO 5 mg DAILY CANDIDO Administration Bisacodyl 10 mg 05/20/19 14:06 06/02/19 19:12 Dulcolax Supp* [place] 10 mg DAILY PRN Administration CONSTIPATION Docusate Sodium 100 mg 05/20/19 21:00 06/09/19 09:39 Colace Cap* PO 100 mg BID CANDIDO Administration Enoxaparin Sodium 40 mg 06/08/19 09:00 06/09/19 09:39 Lovenox(*) SUBCUT 40 mg Q24H CANDIDO Administration Magnesium Hydroxide 30 ml 05/20/19 14:06 06/04/19 17:44 Milk Of Magnesia Liq* PO 15 ml Q6H PRN Administration CONSTIPATION Multivitamins/Minerals 1 tab 05/21/19 09:00 06/09/19 09:39 Theragran/Minerals Tab* PO 1 tab DAILY CANDIDO Administration Pto - Sleep Aid ( 1 dose 05/21/19 17:58 06/07/19 21:29 Doxylamine 25 Mg) PO 1 dose BEDTIME PRN Administration SLEEP Pto - Super C Mvi 1 dose 05/22/19 18:00 06/09/19 17:21 PO 1 dose BID WITH MEALS CANDIDO Administration Pto - Inner Defense 1 cap 05/22/19 17:00 06/09/19 17:21 Supplement 1 Cap PO 1 cap 0900,1700 CANDIDO Administration Pto - Vitamin De 5,000 units 05/27/19 17:00 06/09/19 17:22 Gold 5,000 Units PO 5,000 units 1700 CANDIDO Administration Pto - Super B Mvi 1 dose 05/27/19 17:00 06/09/19 17:22 Supplement PO 1 dose 1700 CANDIDO Administration Ondansetron HCl 4 mg 05/30/19 14:54 06/07/19 12:55 Zofran Odt Tab* PO 4 mg Q6H PRN Administration NAUSEA Oxycodone HCl 5 mg 05/20/19 14:17 Roxycodone Tab* PO Q4H PRN PAIN - SEVERE Polyethylene Glycol/Electrolytes 17 gm 05/26/19 21:00 06/08/19 20:22 Miralax* PO Not Given BEDTIME CANDIDO Senna 2 tab 05/20/19 14:06 06/08/19 21:06 Senokot 8.6 Mg Tab* PO 1 tab BEDTIME PRN Administration CONSTIPATION Vital Signs: Vital Signs Temp Pulse Resp BP Pulse Ox 98.2 F 72 18 138/79 100 06/09/19 16:00 06/09/19 16:00 06/09/19 17:24 06/09/19 16:00 06/09/19 17:24 Exam: GENERAL: No acute distress. Alert and appropriate. LUNGS: Clear to auscultation bilaterally. HEART: Regular rate and rhythm. ABDOMEN: Active bowel sounds. Soft, nontender, nondistended. EXTREMITIES: Pedal edema. +DP/PT pulses bilaterally. Left leg brace locked at 20 degrees of flexion. Right arm in a sling. SKIN: Left leg fasciotomy sites dressings removed with nursing, wounds clean. Left upper thigh incision with steristrips intact. NEUROLOGICAL EXAM: Normal sensation x3. Impaired sensation in left leg below the knee. Trace left toe flexion and otherwise 0/5 left foot/ankle. Exam of rest of LLE motor limited by restrictions. RLE and LUE motor 5/5. RUE motor 5/ 5 in hand and wrist with rest of exam limited by sling. 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 1. Status post popliteal bypass: Hold on Plavix until after she has had surgery with potential skin grafting with the [facility]. She had followup with Vascular Surgery 06/03/2019 with sutures removed. 2. Left knee dislocation with ligament tears: Continue with non-weight bearing precautions to the left lower extremity. Continue with brace on her left leg locked to 20 degrees of flexion. Range of motion and stretching of her left foot /ankle at least 5 times per day to prevent contracture. Multipodus boot when in bed. 3. Right Humerus Fracture: Sling for RUE. AROM and PROM of right elbow and strengthening of wrist and hand. f/u with ortho. 3. Status post LLE fasciotomy with open wounds: Continue with moist to dry dressings b.i.d. to the left leg with ANIL wrap. Saw Dr. Jones in plastic surgery on 06/03/2019 and will see again on 06/23 at 1pm. Per patient he did not think the medial wound was ready for skin graft yet and it giving it more time. 4. Acute blood loss anemia: stable. Hb 8.6. Follow routine labs. 5. 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 Multi Podus boot on LLE when she is in bed. 6. Acute renal failure: Resolved 7. Impaired mobility: PT for transfer, bed mobility, and short distance gait training using a margareth walker and wheelchair. 8. Impaired self-care: OT for ADL training and equipment evaluation. Family training as appropriate. 9. Advance directives: She is a full code. Her , Bradley Ashraf, is surrogate decision maker. 10. Vitamin D deficiency: has own supplement of 5000iu daily. 11. DVT prophylaxis: Lovenox. 06/09/19 18:09
[2019-06-09] MEDS: DOXYLAMINE PO PRN (21:18)
[2019-06-09] MEDS: [UNRECOGNIZED DRUG - OTHER] PO PRN (21:18)
[2019-06-09] MEDS: Senna TAB 8.6 mg* TAB PO PRN (21:19)
[2019-06-09] MEDS: Polyethylene Glycol 3350* 17 GM PACKET PO SCH (21:20)
[2019-06-10] MEDS: [UNRECOGNIZED DRUG - OTHER] PO SCH ×2 (08:13→18:39)
[2019-06-10] MEDS: Docusate CAP* 100 MG PO SCH ×2 (08:13→21:18)
[2019-06-10] MEDS: [UNRECOGNIZED DRUG - OTHER] PO SCH ×2 (08:13→18:39)
[2019-06-10] MEDS: Multivitamins/Minerals TAB PO SCH (08:13)
[2019-06-10] MEDS: Enoxaparin(*) 40 MG/0.4 ML SYR SUBCUT SCH (08:14)
[2019-06-10] MEDS: amLODIPine TAB* 5 MG PO SCH (08:14)
--- NOTE | 2019-06-10 09:07 | PN ---
Progress Note Date of Service: 06/10/19 Note: JI ASHRAF was visited. Nursing and therapy notes read and reviewed. No chest pain, shortness of breath or abdominal pain. Current Medications: Active Medications Generic Name Dose Route Start Last Admin Trade Name Freq PRN Reason Stop Dose Admin Acetaminophen 650 mg 05/20/19 14:51 Tylenol Tab* PO Q6H PRN PAIN - MODERATE Al Hydrox/Mg Hydrox/Simethicone 30 ml 05/20/19 14:06 05/30/19 13:13 Maalox Plus* PO 30 ml Q6H PRN Administration INDIGESTION Amlodipine Besylate 5 mg 05/21/19 09:00 06/10/19 08:14 Norvasc Tab* PO 5 mg DAILY CANDIDO Administration Bisacodyl 10 mg 05/20/19 14:06 06/02/19 19:12 Dulcolax Supp* [place] 10 mg DAILY PRN Administration CONSTIPATION Docusate Sodium 100 mg 05/20/19 21:00 06/10/19 08:13 Colace Cap* PO 100 mg BID CANDIDO Administration Enoxaparin Sodium 40 mg 06/08/19 09:00 06/10/19 08:14 Lovenox(*) SUBCUT 40 mg Q24H CANDIDO Administration Magnesium Hydroxide 30 ml 05/20/19 14:06 06/04/19 17:44 Milk Of Magnesia Liq* PO 15 ml Q6H PRN Administration CONSTIPATION Multivitamins/Minerals 1 tab 05/21/19 09:00 06/10/19 08:13 Theragran/Minerals Tab* PO 1 tab DAILY CANDIDO Administration Pto - Sleep Aid ( 1 dose 05/21/19 17:58 06/09/19 21:18 Doxylamine 25 Mg) PO 1 dose BEDTIME PRN Administration SLEEP Pto - Super C Mvi 1 dose 05/22/19 18:00 06/10/19 08:13 PO 1 dose BID WITH MEALS CANDIDO Administration Pto - Inner Defense 1 cap 05/22/19 17:00 06/10/19 08:13 Supplement 1 Cap PO 1 cap 0900,1700 CANDIDO Administration Pto - Vitamin De 5,000 units 05/27/19 17:00 06/09/19 17:22 Gold 5,000 Units PO 5,000 units 1700 CANDIDO Administration Pto - Super B Mvi 1 dose 05/27/19 17:00 06/09/19 17:22 Supplement PO 1 dose 1700 CANDIDO Administration Ondansetron HCl 4 mg 05/30/19 14:54 06/07/19 12:55 Zofran Odt Tab* PO 4 mg Q6H PRN Administration NAUSEA Oxycodone HCl 5 mg 05/20/19 14:17 Roxycodone Tab* PO Q4H PRN PAIN - SEVERE Polyethylene Glycol/Electrolytes 17 gm 05/26/19 21:00 06/09/19 21:20 Miralax* PO Not Given BEDTIME CANDIDO Senna 2 tab 05/20/19 14:06 06/09/19 21:19 Senokot 8.6 Mg Tab* PO 1 tab BEDTIME PRN Administration CONSTIPATION Vital Signs: Vital Signs Temp Pulse Resp BP Pulse Ox 97.8 F 78 16 151/71 98 06/10/19 06:25 06/10/19 06:25 06/10/19 06:25 06/10/19 06:25 06/10/19 06:25 Exam: GENERAL: No acute distress. Alert and appropriate. LUNGS: Clear to auscultation bilaterally. HEART: Regular rate and rhythm. ABDOMEN: Active bowel sounds. Soft, nontender, nondistended. EXTREMITIES: +DP/PT pulses bilaterally. Left leg brace locked at 20 degrees of flexion. Right arm in a sling. SKIN: Left leg fasciotomy sites dressings clean and intact. Left upper thigh incision intact. NEUROLOGICAL EXAM: Normal sensation x3. Impaired sensation in left leg below the knee. Trace left toe flexion and otherwise 0/5 left foot/ankle. Exam of rest of LLE motor limited by restrictions. RLE and LUE motor 5/5. RUE motor 5/ 5 in hand and wrist with rest of exam limited by sling. 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 1. Status post popliteal bypass: Hold on Plavix until after she has had surgery with potential skin grafting with the [facility]. She had followup with Vascular Surgery 06/03/2019 with sutures removed. 2. Left knee dislocation with ligament tears: Continue with non-weight bearing precautions to the left lower extremity. Continue with brace on her left leg locked to 20 degrees of flexion. Range of motion and stretching of her left foot /ankle at least 5 times per day to prevent contracture. Multipodus boot when in bed. 3. Right Humerus Fracture: Sling for RUE. AROM and PROM of right elbow and strengthening of wrist and hand. f/u with ortho. 3. Status post LLE fasciotomy with open wounds: Continue with moist to dry dressings b.i.d. to the left leg with ANIL wrap. Saw Dr. Jones in plastic surgery on 06/03/2019 and will see again on 06/23 at 1pm. Per patient he did not think the medial wound was ready for skin graft yet and it giving it more time. 4. Acute blood loss anemia: stable. Hb 8.6. Follow routine labs. 5. 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 Multi Podus boot on LLE when she is in bed. 6. Acute renal failure: Resolved 7. Impaired mobility: PT for transfer, bed mobility, and short distance gait training using a margareth walker and wheelchair. 8. Impaired self-care: OT for ADL training and equipment evaluation. Discharge training as appropriate. 9. Advance directives: She is a full code. Her , Bradley Ashraf, is surrogate decision maker. 10. Vitamin D deficiency: has own supplement of 5000iu daily. 11. DVT prophylaxis: Lovenox. 06/10/19 09:08
[2019-06-10] MEDS: [UNRECOGNIZED DRUG - OTHER] PO SCH (18:39)
[2019-06-10] MEDS: [UNRECOGNIZED DRUG - OTHER] PO SCH (18:39)
[2019-06-10] MEDS: Senna TAB 8.6 mg* TAB PO PRN (21:17)
[2019-06-10] MEDS: Polyethylene Glycol 3350* 17 GM PACKET PO SCH (21:18)
[2019-06-10] MEDS: DOXYLAMINE PO PRN (21:19)
[2019-06-10] MEDS: [UNRECOGNIZED DRUG - OTHER] PO PRN (21:19)
[2019-06-11] MEDS: Enoxaparin(*) 40 MG/0.4 ML SYR SUBCUT SCH (07:58)
[2019-06-11] MEDS: amLODIPine TAB* 5 MG PO SCH (08:01)
[2019-06-11] MEDS: Multivitamins/Minerals TAB PO SCH (08:01)
[2019-06-11] MEDS: Docusate CAP* 100 MG PO SCH ×2 (08:01→21:53)
[2019-06-11] MEDS: [UNRECOGNIZED DRUG - OTHER] PO SCH ×2 (08:03→17:01)
[2019-06-11] MEDS: [UNRECOGNIZED DRUG - OTHER] PO SCH ×2 (08:03→17:02)
--- NOTE | 2019-06-11 10:02 | PN ---
Progress Note Date of Service: 06/11/19 Note: JI AHSRAF was visited. Nursing and therapy notes read and reviewed. No chest pain, shortness of breath or abdominal pain. Her daughters are here today for discharge training. Current Medications: Active Medications Generic Name Dose Route Start Last Admin Trade Name Freq PRN Reason Stop Dose Admin Acetaminophen 650 mg 05/20/19 14:51 Tylenol Tab* PO Q6H PRN PAIN - MODERATE Al Hydrox/Mg Hydrox/Simethicone 30 ml 05/20/19 14:06 05/30/19 13:13 Maalox Plus* PO 30 ml Q6H PRN Administration INDIGESTION Amlodipine Besylate 5 mg 05/21/19 09:00 06/11/19 08:01 Norvasc Tab* PO 5 mg DAILY CANDIDO Administration Bisacodyl 10 mg 05/20/19 14:06 06/02/19 19:12 Dulcolax Supp* [place] 10 mg DAILY PRN Administration CONSTIPATION Docusate Sodium 100 mg 05/20/19 21:00 06/11/19 08:01 Colace Cap* PO 100 mg BID CANDIDO Administration Enoxaparin Sodium 40 mg 06/08/19 09:00 06/11/19 07:58 Lovenox(*) SUBCUT 40 mg Q24H CANDIDO Administration Magnesium Hydroxide 30 ml 05/20/19 14:06 06/04/19 17:44 Milk Of Magnesia Liq* PO 15 ml Q6H PRN Administration CONSTIPATION Multivitamins/Minerals 1 tab 05/21/19 09:00 06/11/19 08:01 Theragran/Minerals Tab* PO 1 tab DAILY CANDIDO Administration Pto - Sleep Aid ( 1 dose 05/21/19 17:58 06/10/19 21:19 Doxylamine 25 Mg) PO 1 dose BEDTIME PRN Administration SLEEP Pto - Super C Mvi 1 dose 05/22/19 18:00 06/11/19 08:03 PO 1 dose BID WITH MEALS CANDIDO Administration Pto - Inner Defense 1 cap 05/22/19 17:00 06/11/19 08:03 Supplement 1 Cap PO 1 cap 0900,1700 CANDIDO Administration Pto - Vitamin De 5,000 units 05/27/19 17:00 06/10/19 18:39 Gold 5,000 Units PO Not Given 1700 CANDIDO Pto - Super B Mvi 1 dose 05/27/19 17:00 06/10/19 18:39 Supplement PO Not Given 1700 CANDIDO Ondansetron HCl 4 mg 05/30/19 14:54 06/07/19 12:55 Zofran Odt Tab* PO 4 mg Q6H PRN Administration NAUSEA Oxycodone HCl 5 mg 05/20/19 14:17 Roxycodone Tab* PO Q4H PRN PAIN - SEVERE Polyethylene Glycol/Electrolytes 17 gm 05/26/19 21:00 06/10/19 21:18 Miralax* PO Not Given BEDTIME CANDIDO Senna 2 tab 05/20/19 14:06 06/10/19 21:17 Senokot 8.6 Mg Tab* PO 1 tab BEDTIME PRN Administration CONSTIPATION Vital Signs: Vital Signs Temp Pulse Resp BP Pulse Ox 98.0 F 79 17 148/74 97 06/11/19 05:35 06/11/19 05:35 06/11/19 08:00 06/11/19 05:35 06/11/19 08:00 Exam: GENERAL: No acute distress. Alert and appropriate. LUNGS: Clear to auscultation bilaterally. HEART: Regular rate and rhythm. ABDOMEN: Active bowel sounds. Soft, nontender, nondistended. EXTREMITIES: +DP/PT pulses bilaterally. Left leg brace locked at 20 degrees of flexion. Right arm in a sling. SKIN: Left leg fasciotomy sites look clean. Left upper thigh incision intact with some steri strips still hanging on. NEUROLOGICAL EXAM: Normal sensation x3. Impaired sensation in left leg below the knee. Trace left toe flexion and otherwise 0/5 left foot/ankle. Exam of rest of LLE motor limited by restrictions. RLE and LUE motor 5/5. RUE motor 5/ 5 in hand and wrist with rest of exam limited by sling. 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 1. Status post popliteal bypass: Hold on Plavix until after she has had surgery with potential skin grafting with the [facility]. She had followup with Vascular Surgery 06/03/2019 with sutures removed. 2. Left knee dislocation with ligament tears: Continue with non-weight bearing precautions to the left lower extremity. Continue with brace on her left leg locked to 20 degrees of flexion. Range of motion and stretching of her left foot /ankle at least 5 times per day to prevent contracture. Multipodus boot when in bed. 3. Right Humerus Fracture: Sling for RUE. AROM and PROM of right elbow and strengthening of wrist and hand. f/u with ortho. 3. Status post LLE fasciotomy with open wounds: Continue with moist to dry dressings b.i.d. to the left leg with ANIL wrap. Saw Dr. Jones in plastic surgery on 06/03/2019 and will see again on 06/23 at 1pm. Per patient he did not think the medial wound was ready for skin graft yet and it giving it more time. Family here to learn dressing changes. 4. Acute blood loss anemia: stable. Hb 8.6. Follow routine labs. 5. 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 Multi Podus boot on LLE when she is in bed. One of her daughters questioned when sensation and motion would come back. I told her it was questionable if any sensation and strength would come back. We discussed potential bracing for future ambulation (AFO, KAFO) depending on return, but many factors need addressing first such as skin and knee issues. 6. Acute renal failure: Resolved 7. Impaired mobility: PT for transfer, bed mobility, and short distance gait training using a margareth walker and wheelchair. Discharge training. 8. Impaired self-care: OT for ADL training and equipment evaluation. Discharge training as appropriate. 9. Advance directives: She is a full code. Her , Bradley Ashraf, is surrogate decision maker. 10. Vitamin D deficiency: has own supplement of 5000iu daily. 11. DVT prophylaxis: Lovenox. Teach self administration. 06/11/19 09:58
[2019-06-11] MEDS: [UNRECOGNIZED DRUG - OTHER] PO SCH (17:01)
[2019-06-11] MEDS: [UNRECOGNIZED DRUG - OTHER] PO SCH (17:01)
[2019-06-11] MEDS: DOXYLAMINE PO PRN (21:53)
[2019-06-11] MEDS: [UNRECOGNIZED DRUG - OTHER] PO PRN (21:53)
[2019-06-11] MEDS: Senna TAB 8.6 mg* TAB PO PRN (21:53)
[2019-06-11] MEDS: Polyethylene Glycol 3350* 17 GM PACKET PO SCH (21:58)
[2019-06-12] MEDS: [UNRECOGNIZED DRUG - OTHER] PO SCH ×2 (08:59→17:41)
[2019-06-12] MEDS: amLODIPine TAB* 5 MG PO SCH (08:59)
[2019-06-12] MEDS: Multivitamins/Minerals TAB PO SCH (08:59)
[2019-06-12] MEDS: [UNRECOGNIZED DRUG - OTHER] PO SCH ×2 (08:59→17:41)
[2019-06-12] MEDS: Docusate CAP* 100 MG PO SCH ×2 (08:59→21:15)
[2019-06-12] MEDS: Enoxaparin(*) 40 MG/0.4 ML SYR SUBCUT SCH (09:02)
--- NOTE | 2019-06-12 09:05 | PN ---
Progress Note Date of Service: 06/12/19 Note: JI ASHRAF was visited. Nursing and therapy notes read and reviewed. Daughters did training with PT and nursing yesterday. No chest pain, shortness of breath or abdominal pain. She is concerned about transportation to [facility] after d/c. Current Medications: Active Medications Generic Name Dose Route Start Last Admin Trade Name Freq PRN Reason Stop Dose Admin Acetaminophen 650 mg 05/20/19 14:51 Tylenol Tab* PO Q6H PRN PAIN - MODERATE Al Hydrox/Mg Hydrox/Simethicone 30 ml 05/20/19 14:06 05/30/19 13:13 Maalox Plus* PO 30 ml Q6H PRN Administration INDIGESTION Amlodipine Besylate 5 mg 05/21/19 09:00 06/12/19 08:59 Norvasc Tab* PO 5 mg DAILY CANDIDO Administration Bisacodyl 10 mg 05/20/19 14:06 06/02/19 19:12 Dulcolax Supp* [place] 10 mg DAILY PRN Administration CONSTIPATION Docusate Sodium 100 mg 05/20/19 21:00 06/12/19 08:59 Colace Cap* PO 100 mg BID CANDIDO Administration Enoxaparin Sodium 40 mg 06/08/19 09:00 06/11/19 07:58 Lovenox(*) SUBCUT 40 mg Q24H CANDIDO Administration Magnesium Hydroxide 30 ml 05/20/19 14:06 06/04/19 17:44 Milk Of Magnesia Liq* PO 15 ml Q6H PRN Administration CONSTIPATION Multivitamins/Minerals 1 tab 05/21/19 09:00 06/12/19 08:59 Theragran/Minerals Tab* PO 1 tab DAILY CANDIDO Administration Pto - Sleep Aid ( 1 dose 05/21/19 17:58 06/11/19 21:53 Doxylamine 25 Mg) PO 1 dose BEDTIME PRN Administration SLEEP Pto - Super C Mvi 1 dose 05/22/19 18:00 06/12/19 08:59 PO 1 dose BID WITH MEALS CANDIDO Administration Pto - Inner Defense 1 cap 05/22/19 17:00 06/12/19 08:59 Supplement 1 Cap PO 1 cap 0900,1700 CANDIDO Administration Pto - Vitamin De 5,000 units 05/27/19 17:00 06/11/19 17:01 Gold 5,000 Units PO 5,000 units 1700 CANDIDO Administration Pto - Super B Mvi 1 dose 05/27/19 17:00 06/11/19 17:01 Supplement PO 1 dose 1700 CANDIDO Administration Ondansetron HCl 4 mg 05/30/19 14:54 06/07/19 12:55 Zofran Odt Tab* PO 4 mg Q6H PRN Administration NAUSEA Oxycodone HCl 5 mg 05/20/19 14:17 Roxycodone Tab* PO Q4H PRN PAIN - SEVERE Polyethylene Glycol/Electrolytes 17 gm 05/26/19 21:00 06/11/19 21:58 Miralax* PO Not Given BEDTIME CANDIDO Senna 2 tab 05/20/19 14:06 06/11/19 21:53 Senokot 8.6 Mg Tab* PO 2 tab BEDTIME PRN Administration CONSTIPATION Vital Signs: Vital Signs Temp Pulse Resp BP Pulse Ox 98.5 F 78 16 147/63 95 06/12/19 06:18 06/12/19 06:18 06/12/19 06:18 06/12/19 06:18 06/12/19 06:18 Exam: GENERAL: No acute distress. Alert and appropriate. LUNGS: Clear to auscultation bilaterally. HEART: Regular rate and rhythm. ABDOMEN: Active bowel sounds. Soft, nontender, nondistended. EXTREMITIES: +DP/PT pulses bilaterally. Left leg brace locked at 20 degrees of flexion. Right arm in a sling. SKIN: Left leg fasciotomy sites dressings c/d/i. Left upper thigh incision intact with some steri strips still hanging on. NEUROLOGICAL EXAM: Normal sensation x3. Impaired sensation in left leg below the knee. Trace left toe flexion and otherwise 0/5 left foot/ankle. Exam of rest of LLE motor limited by restrictions. RLE and LUE motor 5/5. RUE motor 5/ 5 in hand and wrist with rest of exam limited by sling. 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 1. Status post popliteal bypass: Hold on Plavix until after she has had surgery with potential skin grafting with [facility]. She had followup with Vascular Surgery 06/03/2019 with sutures removed. 2. Left knee dislocation with ligament tears: Continue with non-weight bearing precautions to the left lower extremity. Continue with brace on her left leg locked to 20 degrees of flexion. Range of motion and stretching of her left foot /ankle at least 5 times per day to prevent contracture. Multipodus boot when in bed. f/u with orthopedics. 3. Right Humerus Fracture: Sling for RUE. AROM and PROM of right elbow and strengthening of wrist and hand. f/u with orthopedics. 3. Status post LLE fasciotomy with open wounds: Continue with moist to dry dressings b.i.d. to the left leg with ANIL wrap. Saw Dr. Jones in plastic surgery on 06/03/2019 and will see again on 06/23 at 1pm. Per patient he did not think the medial wound was ready for skin graft yet and it giving it more time. Family here to learn dressing changes. 4. Acute blood loss anemia: stable. Hb 8.6. Follow routine labs. 5. 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 Multi Podus boot on LLE when she is in bed. 6. Acute renal failure: Resolved 7. Impaired mobility: PT for transfer, bed mobility, and short distance gait training using a margareth walker and wheelchair. 8. Impaired self-care: OT for ADL training and equipment evaluation. 9. Advance directives: She is a full code. Her , Bradley Ashraf, is surrogate decision maker. 10. Vitamin D deficiency: has own supplement of 5000iu daily. 11. DVT prophylaxis: Lovenox. Teach self administration. 06/12/19 09:03
[2019-06-12] MEDS: [UNRECOGNIZED DRUG - OTHER] PO SCH (17:40)
[2019-06-12] MEDS: [UNRECOGNIZED DRUG - OTHER] PO SCH (17:40)
[2019-06-12] MEDS: Polyethylene Glycol 3350* 17 GM PACKET PO SCH (21:15)
[2019-06-12] MEDS: Senna TAB 8.6 mg* TAB PO PRN (21:16)
[2019-06-13] MEDS: [UNRECOGNIZED DRUG - OTHER] PO SCH ×2 (07:47→17:06)
[2019-06-13] MEDS: Docusate CAP* 100 MG PO SCH ×2 (07:47→21:21)
[2019-06-13] MEDS: amLODIPine TAB* 5 MG PO SCH (07:47)
[2019-06-13] MEDS: [UNRECOGNIZED DRUG - OTHER] PO SCH ×2 (07:47→17:06)
[2019-06-13] MEDS: Multivitamins/Minerals TAB PO SCH (07:47)
[2019-06-13] MEDS: Enoxaparin(*) 40 MG/0.4 ML SYR SUBCUT SCH (07:48)
[2019-06-13] MEDS: [UNRECOGNIZED DRUG - OTHER] PO SCH (17:05)
[2019-06-13] MEDS: [UNRECOGNIZED DRUG - OTHER] PO SCH (17:05)
--- NOTE | 2019-06-13 18:33 | PN ---
Progress Note Date of Service: 06/13/19 Note: JI ASHRAF was visited. Therapy notes read and reviewed. She does not want to go home on Lovenox but I think this may be necessary for a little while- at least until she can ask her surgeon Current Medications: Active Medications Generic Name Dose Route Start Last Admin Trade Name Freq PRN Reason Stop Dose Admin Acetaminophen 650 mg 05/20/19 14:51 Tylenol Tab* PO Q6H PRN PAIN - MODERATE Al Hydrox/Mg Hydrox/Simethicone 30 ml 05/20/19 14:06 05/30/19 13:13 Maalox Plus* PO 30 ml Q6H PRN Administration INDIGESTION Amlodipine Besylate 5 mg 05/21/19 09:00 06/13/19 07:47 Norvasc Tab* PO 5 mg DAILY CANDIDO Administration Bisacodyl 10 mg 05/20/19 14:06 06/02/19 19:12 Dulcolax Supp* [place] 10 mg DAILY PRN Administration CONSTIPATION Docusate Sodium 100 mg 05/20/19 21:00 06/13/19 07:47 Colace Cap* PO 100 mg BID CANDIDO Administration Enoxaparin Sodium 40 mg 06/08/19 09:00 06/13/19 07:48 Lovenox(*) SUBCUT 40 mg Q24H CANDIDO Administration Magnesium Hydroxide 30 ml 05/20/19 14:06 06/04/19 17:44 Milk Of Magnesia Liq* PO 15 ml Q6H PRN Administration CONSTIPATION Multivitamins/Minerals 1 tab 05/21/19 09:00 06/13/19 07:47 Theragran/Minerals Tab* PO 1 tab DAILY CANDIDO Administration Pto - Sleep Aid ( 1 dose 05/21/19 17:58 06/11/19 21:53 Doxylamine 25 Mg) PO 1 dose BEDTIME PRN Administration SLEEP Pto - Super C Mvi 1 dose 05/22/19 18:00 06/13/19 17:06 PO 1 dose BID WITH MEALS CANDIDO Administration Pto - Inner Defense 1 cap 05/22/19 17:00 06/13/19 17:06 Supplement 1 Cap PO 1 cap 0900,1700 CANDIDO Administration Pto - Vitamin De 5,000 units 05/27/19 17:00 06/13/19 17:05 Gold 5,000 Units PO 5,000 units 1700 CANDIDO Administration Pto - Super B Mvi 1 dose 05/27/19 17:00 06/13/19 17:05 Supplement PO 1 dose 1700 CANDIDO Administration Ondansetron HCl 4 mg 05/30/19 14:54 06/07/19 12:55 Zofran Odt Tab* PO 4 mg Q6H PRN Administration NAUSEA Oxycodone HCl 5 mg 05/20/19 14:17 Roxycodone Tab* PO Q4H PRN PAIN - SEVERE Polyethylene Glycol/Electrolytes 17 gm 05/26/19 21:00 06/12/19 21:15 Miralax* PO Not Given BEDTIME CANDIDO Senna 2 tab 05/20/19 14:06 06/12/19 21:16 Senokot 8.6 Mg Tab* PO 2 tab BEDTIME PRN Administration CONSTIPATION Vital Signs: Vital Signs Temp Pulse Resp BP Pulse Ox 98.1 F 80 18 148/71 100 06/13/19 16:15 06/13/19 16:15 06/13/19 17:13 06/13/19 16:15 06/13/19 17:13 Exam: GENERAL: No acute distress. Alert and appropriate. LUNGS: Clear to auscultation bilaterally. HEART: Regular rate and rhythm. ABDOMEN: Active bowel sounds. Soft, nontender, nondistended. EXTREMITIES: +DP/PT pulses bilaterally. Left leg brace locked at 20 degrees of flexion. Right arm in a sling. SKIN: Left leg fasciotomy sites dressings c/d/i. Left upper thigh incision intact with some steri strips still hanging on. NEUROLOGICAL EXAM: Normal sensation x3. Impaired sensation in left leg below the knee. Trace left toe flexion and otherwise 0/5 left foot/ankle. Exam of rest of LLE motor limited by restrictions. RLE and LUE motor 5/5. RUE motor 5/ 5 in hand and wrist with rest of exam limited by sling. 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 1. Status post popliteal bypass: Hold on Plavix until after she has had surgery with potential skin grafting with the [facility]. She had followup with Vascular Surgery 06/03/2019 with sutures removed. 2. Left knee dislocation with ligament tears: NWB LLE. Brace on left leg locked to 20 degrees of flexion. ROM and stretching of her left foot/ankle 5 times per day to prevent contracture. Multipodus boot when in bed. f/u with orthopedics. 3. Right Humerus Fracture: Sling for RUE. AROM and PROM of right elbow and strengthening of wrist and hand. f/u with orthopedics. 3. Status post LLE fasciotomy with open wounds: Continue with moist to dry dressings b.i.d. to the left leg with ANIL wrap. Dr. Jones/plastic surgery follow up 06/23 at 1pm. 4. Acute blood loss anemia: stable. Hb 8.6. Follow routine labs. 5. 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 Multi Podus boot on LLE when she is in bed. 6. Impaired mobility: PT for transfer, bed mobility, and short distance gait training using a margareth walker and wheelchair. 7. Impaired self-care: OT for ADL training and equipment evaluation. 8. Advance directives: She is a full code. Her , Bradley Ashraf, is surrogate decision maker. 9. Vitamin D deficiency: has own supplement of 5000iu daily. 10. DVT prophylaxis: Lovenox. 06/13/19 18:34
[2019-06-13] MEDS: Polyethylene Glycol 3350* 17 GM PACKET PO SCH (20:50)
[2019-06-13] MEDS: Senna TAB 8.6 mg* TAB PO PRN (21:21)
[2019-06-13] MEDS: [UNRECOGNIZED DRUG - OTHER] PO PRN (21:22)
[2019-06-13] MEDS: DOXYLAMINE PO PRN (21:22)
[2019-06-14] MEDS: Docusate CAP* 100 MG PO SCH ×2 (08:46→21:51)
[2019-06-14] MEDS: [UNRECOGNIZED DRUG - OTHER] PO SCH ×2 (08:46→17:03)
[2019-06-14] MEDS: [UNRECOGNIZED DRUG - OTHER] PO SCH ×2 (08:46→17:03)
[2019-06-14] MEDS: Enoxaparin(*) 40 MG/0.4 ML SYR SUBCUT SCH (08:47)
[2019-06-14] MEDS: amLODIPine TAB* 5 MG PO SCH (08:47)
[2019-06-14] MEDS: Multivitamins/Minerals TAB PO SCH (08:47)
--- NOTE | 2019-06-14 12:51 | PMRUTEAM ---
PMRU: Team Meeting Current Status: Physical Therapy: Current Status Current Rolling Status Supervision/Touching Current Supine <-> Sit Status Supervision/Touching Current Sit <-> Stand Status Partial/Moderate Current Bed <-> Chair Status Partial/Moderate Transfer/Bed Mobility Larry Walker,Slide Board Recommended Devices Transfer Mobility Comment minAx with HW/gait belt Current Picking Up Object Not attempted Status Current Car Transfer Status Substantial/Maximal Current Ambulation Assistance Not attempted Status Manual Wheelchair Control/ Left UE Technique Current Wheelchair Propulsion Supervision/Touching Ability Status Wheelchair Distance (ft) 150' Current Stair Climbing Status Not attempted Current Curb Assistance Status Not attempted Objective Comments WC propulsion over even surfaces with >2 turns with use of LUE/RLE to propel, pt able to don/doff w/c brakes, but requires assist to remove LLE leg rest Occupational Therapy: Current Status Current Upper Body Dressing Partial/Moderate Status Upper Body Dressing Progress Hayden to pull shirt down trunk Current Lower Body Dressing Dependent Status Current Footwear Status Dependent Current Bathing Status Partial/Moderate Current Grooming Status Setup or Clean-up Assist Current Toileting Status Dependent Current Toilet Transfer Status Partial/Moderate Toilet Transfer Progress min/modA STS from BSC Current Eating Status Independent Nursing: Current Status Skin Deviations [Left Knee] Bruise Skin Deviations [Left Lower Abrasion Arm] Skin Deviations [Right Arm] Other Skin Deviations [Left Lower Incision,Wound Leg] Skin Deviations [Left Upper Incision Thigh] Skin Deviations [Right Groin] Previous Access Point Skin Deviations [Coccyx] Skin Tear Skin Deviation Description [ scabs Left Knee] Skin Deviation Description [ in sling Right Arm] Skin Deviation Description [ intact Left Lower Leg] Skin Deviation Description [ steristrips Left Upper Thigh] Skin Deviation Description [ scabs Right Groin] Skin Deviation Description [ didn't visualize Coccyx] Bladder Current Status using bedpan to void. dribbling Bowel Current Status colace given. bm this am Nutrition Current Status appetite good Medication Current Status no pain meds given Rec Therapy: Current Status Summary of Assessment and Recreation therapy assessment complete and pt is Clinical Impression aware of services. Pt often has family/friends visiting in the afternoons, but is open to continued leisure visits and pet therapy. Treatment Goals Pt will engage in leisure activities while on the unit as tolerated Treatment Plan Provide recreation therapy services and encourge involvement Social Work: Current Status Discharge Plan return home with home care svs and family support Potential for Family Training pt's daughter has attended d/c training Anticipated Discharge Home Destination Discharge With home care [facility] and family support Nutrition: Current Status Monitoring continued w/good appetite; consuming 75-100% of meals. Slightly declined po intake on 06/07 d/t nausea, but has since resolved. Regular diet appropriate. Pt remains w/ increased nutrient needs for wound healing; estimated nutrient needs established below. Following up 06/23 w/Plastic Surgery. Labs reviewed (06/08): Cr cont to improve (.97), electrolytes WNL; BG 102; will continue to monitor labs. When visited today, pt appeared in good spirits appeared pleased w/her progress. Will continue to monitor and provide further nutrition intervention as indicated. Goals: Physical Therapy: Goals Goals to Be Accomplished in ( 21-28 Days) Goal: Rolling Assistance Independent Goal Supine <-> Sit Status Independent Goal Sit <-> Stand Status Supervision/Touching Goal Bed <-> Chair Status Supervision/Touching Transfer/Bed Mobility Larry Walker Recommended Devices Goal: Picking Up Object Supervision/Touching Goal: Car Transfer Status Partial/Moderate Goal: Ambulation Assistance Not attempted Goal: Wheelchair Propulsion Independent Ability Wheelchair Distance (ft) 2x150' Goal: Stairs Assistance Not attempted Goal: Curb Assistance Not attempted Goal: Home Exercise Program Independent Assistance Occupational Therapy: Goals Goals to be Completed in (Days 21-28 days ) Goal Upper Body Dressing Independent Routine Goal Lower Body Dressing Independent Routine Goal Footwear Status Independent Goal Bathing Routine (OT) Independent Goal Grooming Routine Independent Goal Toilet Hygiene and Independent Clothing Management Routine Goal Toilet Transfer Routine Independent Goal Functional Transfers for Independent ADL Goal Feeding Routine Independent Goal Light Housekeeping Tasks Independent Nutrition: Goals Intervention Goals 1) Adequate po intake to support lean body mass, wound healing, and hydration status 2) Maintain fluid/electrolyte balance w/ adequate po intake 3) Maintain bowel regularity w/ adequate po intake and bowel regimen w/o development of diarrhea/ constipation Social Work: Goals Discharge Plan return home with home care svs and family support Potential for Family Training pt's daughter has attended d/c training Anticipated Discharge Home Destination Discharge With home care svs and family support Nursing: Goals Bladder Goal supervision Bowel Goal supervision Nutrition Goal 100% of all meals consumed Medication Goal independent Care Plan: Care Plan ADL's - Improve/Maintain Start: 05/20/19 16:10 Freq: DAILY@ Status: Active Target: 05/21/19 Protocol: Activity Type Activity Date Activity User E-Sign Co-Sign Detail Recorded Client Recorded Date Recorded By Document 06/13/19 15:11 [id number] 06/13/19 15:12 [id number] 06/13/19 15:11 PMRU Outcome: ADL's/ADL Transfers Orders/Interventions Occupational Therapy Evaluation & Treatment Communication Tool in Patient Room Device Yes Address Deficits Secondary To: s/p fall with left knee dislocation and R humerus fx Patient to receive OT 5x/wk for 60-120 Therex min/day Self Care Management Group Therapy UE/LE ADL's with Assist Yes ADL Transfers with Assist Yes Toileting: Transfers,Clothing Management Yes ,Hygeine w/Assist Progression Toward Outcome/Goals Not Progressing Lack of Progression Comment Pt continues to require assistance while in standing as she is unable to remove her RUE from larry walker and maintain her balance. Anticipated pt will continue to require assist with hygiene and clothing mmgt for toileting at d/c. Per pt , she will have 24 hr assistance at d /c for 3 weeks from her family . Will need to clarify with pts family that they will be able to provide amount of assist required for pt to return home safely. Cardiovascular- Improve/Maintain Start: 05/20/19 16:10 Freq: DAILY@ Status: Complete Target: 06/17/19 Protocol: Activity Type Activity Date Activity User E-Sign Co-Sign Detail Recorded Client Recorded Date Recorded By Document 06/07/19 16:04 [id number] 06/07/19 16:05 [id number] 06/07/19 16:04 PMRU Outcome: Cardiovascular Vital Signs q Shift for 48hrs Then BID Yes Daily Weight Ordered No Current Cardiovascular Outcome/Goal Maintain/ Achieve Baseline HR, BP , Perfusion Progression Toward Outcome/Goal Goals Met Outcomes/Goals Met Maintain/ Achieve Baseline HR, BP , Perfusion DVT Prophylaxis- Improve/Maintain Start: 05/20/19 16:10 Freq: DAILY@ Status: Active Target: 06/17/19 Protocol: Activity Type Activity Date Activity User E-Sign Co-Sign Detail Recorded Client Recorded Date Recorded By Document 06/14/19 07:00 [id number] 06/14/19 09:52 [id number] 06/14/19 07:00 PMRU Outcome: DVT Prophylaxis Current DVT Outcome/Goals Remains Free of DVT Complies with DVT Prophylaxis /Treatment Demonstrates Knowledge of DVT Prevention/ Treatment Progression Toward Outcome/Goals Progressing Discharge Planning - Improve/Maintain Start: 05/20/19 16:10 Freq: [id number]@[id number],1900 Status: Active Target: 06/17/19 Protocol: Activity Type Activity Date Activity User E-Sign Co-Sign Detail Recorded Client Recorded Date Recorded By Document 06/14/19 07:00 [id number] 06/14/19 09:52 [id number] 06/14/19 07:00 PMRU Outcome: Discharge Planning Update Patient Family No Current Discharge Planning Outcome/Goals Demonstrates Understanding of Discharge Plan Homecare Referral - See Comment Progression Toward Outcome/Goals Progressing Education-Improve/Maintain Start: 05/20/19 16:10 Freq: DAILY@[id number],1900 Status: Active Target: 06/17/19 Protocol: Activity Type Activity Date Activity User E-Sign Co-Sign Detail Recorded Client Recorded Date Recorded By Document 06/14/19 07:00 [id number] 06/14/19 09:52 [id number] 06/14/19 07:00 PMRU Outcome: Education Current Education Outcome/Goals Demonstrate/ Verbalize Understanding of Written Discharge Instructions Demonstrates Skills Encourage Questions Progression Toward Outcome/Goals Progressing Mobility- Improve/Maintain Start: 05/20/19 16:10 Freq: DAILY@[id number],1900 Status: Active Target: 05/21/19 Protocol: Activity Type Activity Date Activity User E-Sign Co-Sign Detail Recorded Client Recorded Date Recorded By Document 06/10/19 16:24 [id number] 06/10/19 16:24 [id number] 06/10/19 16:24 PMRU Outcome: Mobility Physical Therapy Evaluation and Yes Treatment Activity OOB with Assistance Yes WBAT No NWB Yes: NWB RUE/ LLE TTWB No Device Yes Assistance Yes Patient to be seen 5x/wk for 60-120 min/ Therex day for: Mobility Training W/C Mobility Balance Other Other Therapy Comment discharge training, discharge planning Current Mobility Outcome/Goals Improve Mobility Status Demonstrates Proper Use of Assistive Devices Progression Toward Outcome/Goals Progressing Bed Mobility Yes: independent Transfers Yes: supervision with SB or HW Gait x ft No W/C Mobility x ft Yes: independent 150 ' Up/Down Stairs No: ramp entrance recommended With HEP Yes: independent Rec Therapy- Improve/Maintain Start: 05/23/19 14:49 Freq: DAILY@[id number] Status: Active Target: 06/21/19 Protocol: Activity Type Activity Date Activity User E-Sign Co-Sign Detail Recorded Client Recorded Date Recorded By Document 06/10/19 15:43 [id number] 06/10/19 15:44 [id number] 06/10/19 15:43 PMRU Outcome: Recreation Therapy Current Rec Ther Outcome/Goals Complete Rec Therapy Assessment Meet with Patient Regularly for Support Encourage Leisure Involvement Progression Toward Outcome/Goals Progressing Lack of Progression Comment Met with pt to provide continued leisure visits Outcome/Goals Met Complete Rec Therapy Assessment Outcome/Goals Met Comment Recreation therapy assessment complete Safety- Improve/Maintain Start: 05/20/19 14:55 Freq: DAILY@[id number] Status: Active Target: 06/17/19 Protocol: Activity Type Activity Date Activity User E-Sign Co-Sign Detail Recorded Client Recorded Date Recorded By Document 06/14/19 07:00 [id number] 06/14/19 09:52 [id number] 06/14/19 07:00 PMRU Outcome: Safety Current Safety Outcome/Goals Remain Free of Injury or Harm Cooperates with Safety Measures for Least Restrictive Environment Prevent Falls/ Injury Progression Toward Outcome/Goals Progressing Skin- Improve/Maintain Start: 05/20/19 16:10 Freq: DAILY@[id number] Status: Active Target: 06/17/19 Protocol: Activity Type Activity Date Activity User E-Sign Co-Sign Detail Recorded Client Recorded Date Recorded By Document 06/14/19 07:00 [id number] 06/14/19 09:52 [id number] 06/14/19 07:00 PMRU Outcome: Skin Skin Risk Level No Risk Skin Orders Dressing Change Skin Orders Comment BID dressing change Current Skin Outcome/Goals Maintain/ Improve Skin Integrity Free from Pressure Injury Surgical Incisions Healing Progression Toward Outcome/Goals Progressing - Interdisciplinary Staff Present Central Supply Clerk/Social Work Staff Present: Katy Gaxiola LMSW Nursing Staff Present: Sabrina Hampton RN OT Staff Present: Sofie Agustin PT Staff Present: Gabi Beverly Rec Therapy Staff Present: Santa Sornberger RENOVATOR MACHINE OPERATOR Staff Present: Renny Ruelas Note: Length of Stay: 1 week Anticipated Discharge Destination: Home Tentative Discharge Date: 06/21/19 Discharged to: Home vs SNF
[2019-06-14] MEDS: [UNRECOGNIZED DRUG - OTHER] PO SCH (17:02)
[2019-06-14] MEDS: [UNRECOGNIZED DRUG - OTHER] PO SCH (17:03)
--- NOTE | 2019-06-14 18:50 | PN ---
Progress Note Date of Service: 06/14/19 Note: JI ASHRAF was visited. Therapy notes read and reviewed. She was discussed in interdisciplinary team rounds. We talked about her discharge date and her plans for after discharge. She is willing to consider a stay in [facility] if she cannot make it home. She would prefer [facility] in [place] Current Medications: Active Medications Generic Name Dose Route Start Last Admin Trade Name Freq PRN Reason Stop Dose Admin Acetaminophen 650 mg 05/20/19 14:51 Tylenol Tab* PO Q6H PRN PAIN - MODERATE Al Hydrox/Mg Hydrox/Simethicone 30 ml 05/20/19 14:06 05/30/19 13:13 Maalox Plus* PO 30 ml Q6H PRN Administration INDIGESTION Amlodipine Besylate 5 mg 05/21/19 09:00 06/14/19 08:47 Norvasc Tab* PO 5 mg DAILY CANDIDO Administration Bisacodyl 10 mg 05/20/19 14:06 06/02/19 19:12 Dulcolax Supp* [place] 10 mg DAILY PRN Administration CONSTIPATION Docusate Sodium 100 mg 05/20/19 21:00 06/14/19 08:46 Colace Cap* PO 100 mg BID CANDIDO Administration Enoxaparin Sodium 40 mg 06/08/19 09:00 06/14/19 08:47 Lovenox(*) SUBCUT 40 mg Q24H CANDIDO Administration Magnesium Hydroxide 30 ml 05/20/19 14:06 06/04/19 17:44 Milk Of Magnesia Liq* PO 15 ml Q6H PRN Administration CONSTIPATION Multivitamins/Minerals 1 tab 05/21/19 09:00 06/14/19 08:47 Theragran/Minerals Tab* PO 1 tab DAILY CANDIDO Administration Pto - Sleep Aid ( 1 dose 05/21/19 17:58 06/13/19 21:22 Doxylamine 25 Mg) PO 1 dose BEDTIME PRN Administration SLEEP Pto - Super C Mvi 1 dose 05/22/19 18:00 06/14/19 17:03 PO 1 dose BID WITH MEALS CANDIDO Administration Pto - Inner Defense 1 cap 05/22/19 17:00 06/14/19 17:03 Supplement 1 Cap PO Not Given 0900,1700 CANDIDO Pto - Vitamin De 5,000 units 05/27/19 17:00 06/14/19 17:02 Gold 5,000 Units PO 5,000 units 1700 CANDIDO Administration Pto - Super B Mvi 1 dose 05/27/19 17:00 06/14/19 17:03 Supplement PO 1 dose 1700 CANDIDO Administration Ondansetron HCl 4 mg 05/30/19 14:54 06/07/19 12:55 Zofran Odt Tab* PO 4 mg Q6H PRN Administration NAUSEA Polyethylene Glycol/Electrolytes 17 gm 05/26/19 21:00 06/13/19 20:50 Miralax* PO Not Given BEDTIME CANDIDO Senna 2 tab 05/20/19 14:06 06/13/19 21:21 Senokot 8.6 Mg Tab* PO 1 tab BEDTIME PRN Administration CONSTIPATION Vital Signs: Vital Signs Temp Pulse Resp BP Pulse Ox 98.2 F 80 16 143/78 100 06/14/19 16:10 06/14/19 16:10 06/14/19 17:25 06/14/19 16:10 06/14/19 17:25 Exam: GENERAL: No acute distress. Alert and appropriate. LUNGS: Clear to auscultation bilaterally. HEART: Regular rate and rhythm. ABDOMEN: Active bowel sounds. Soft, nontender, nondistended. EXTREMITIES: +DP/PT pulses bilaterally. Left leg brace locked at 20 degrees of flexion. Right arm in a sling. SKIN: Left leg fasciotomy sites dressings c/d/i. Left upper thigh incision intact with some steri strips still hanging on. NEUROLOGICAL EXAM: Normal sensation x3. Impaired sensation in left leg below the knee. Trace left toe flexion and otherwise 0/5 left foot/ankle. Exam of rest of LLE motor limited by restrictions. RLE and LUE motor 5/5. RUE motor 5/ 5 in hand and wrist with rest of exam limited by sling. 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 1. Status post popliteal bypass: Hold on Plavix until after she has had surgery with potential skin grafting with [facility]. She had followup with Vascular Surgery 06/03/2019 with sutures removed. 2. Left knee dislocation with ligament tears: NWB LLE. Brace on left leg locked to 20 degrees of flexion. ROM and stretching of her left foot/ankle 5 times per day to prevent contracture. Multipodus boot when in bed. f/u with orthopedics. 3. Right Humerus Fracture: Sling for RUE. AROM and PROM of right elbow and strengthening of wrist and hand. f/u with orthopedics. 3. Status post LLE fasciotomy with open wounds: Continue with moist to dry dressings b.i.d. to the left leg with ANIL wrap. Dr. Jones/plastic surgery follow up 06/23 at 1pm. 4. Acute blood loss anemia: stable. Hb 8.6. Follow routine labs. 5. 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 Multi Podus boot on LLE when she is in bed. 6. Impaired mobility: PT for transfer, bed mobility, and short distance gait training using a margareth walker and wheelchair. 7. Impaired self-care: OT for ADL training and equipment evaluation. 8. Advance directives: She is a full code. Her , Bradley Ashraf, is surrogate decision maker. 9. Vitamin D deficiency: has own supplement of 5000iu daily. 10. DVT prophylaxis: Lovenox. 06/14/19 18:51
[2019-06-14] MEDS: Senna TAB 8.6 mg* TAB PO PRN (21:50)
[2019-06-14] MEDS: Polyethylene Glycol 3350* 17 GM PACKET PO SCH (21:51)
[2019-06-14] MEDS: [UNRECOGNIZED DRUG - OTHER] PO PRN (22:01)
[2019-06-14] MEDS: DOXYLAMINE PO PRN (22:01)
[2019-06-15 04:53] LABS: ABS Basophils 0.1 10^3/ul (0-0.2); ABS Eosinophils 0.3 10^3/ul (0-0.6); ABS Lymphocytes 1.8 10^3/ul (1.0-4.8); ABS Monocytes 0.8 10^3/ul (0-0.8); ABS Neutrophils 4.1 10^3/ul (1.5-7.7); Eosinophil % 3.6 %; Hematocrit 26 % (35-47); Hemoglobin 8.8 g/dL (12.0-16.0); Lymphocyte % 25.3 %; Mean Corpuscular HGB Conc 34 g/dL (31-36); Mean Corpuscular Hemoglobin 30 pg (27-31); Mean Corpuscular Volume 88 fL (80-97); Mean Platelet Volume 7.9 fL (7.4-10.4); Platelet Count 213 10^3/uL (150-450); Red Blood Count 2.92 10^6 /uL (3.70-4.87); Red Cell Distribution Width 16 % (10-15)
[2019-06-15 05:10] LABS: Albumin 2.9 g/dL (3.2-5.2); Albumin/Globulin Ratio 1.2 (1-3); BUN/Creatinine Ratio 17.5 (8-20); Calcium 8.5 mg/dL (8.6-10.3); EGFR African American 87.4 (>60); EGFR Non-African American 72.2 (>60); Globulin 2.5 g/dL (2-4); Potassium 3.9 mmol/L (3.5-5.0); Total Bilirubin 0.3 mg/dL (0.2-1.0); Total Protein 5.4 g/dL (6.4-8.9)
[2019-06-15] MEDS: [UNRECOGNIZED DRUG - OTHER] PO SCH ×2 (08:45→17:10)
[2019-06-15] MEDS: Docusate CAP* 100 MG PO SCH ×2 (08:46→21:24)
[2019-06-15] MEDS: Multivitamins/Minerals TAB PO SCH (08:46)
[2019-06-15] MEDS: Enoxaparin(*) 40 MG/0.4 ML SYR SUBCUT SCH (08:46)
[2019-06-15] MEDS: amLODIPine TAB* 5 MG PO SCH (08:46)
[2019-06-15] MEDS: [UNRECOGNIZED DRUG - OTHER] PO SCH ×2 (08:46→17:12)
[2019-06-15] MEDS: [UNRECOGNIZED DRUG - OTHER] PO SCH (17:10)
[2019-06-15] MEDS: [UNRECOGNIZED DRUG - OTHER] PO SCH (17:10)
--- NOTE | 2019-06-15 19:48 | PN ---
Progress Note Date of Service: 06/15/19 Note: JI LUCERO was visited. Therapy notes read and reviewed. She has decided she does not want to pursue [facility] [place] and would rather go home. Otherwise doing well. Observed dressing change; larger wound filling in and will need graft. Smaller fasciotomy site also clean and filling in. Left leg remains swollen Current Medications: Active Medications Generic Name Dose Route Start Last Admin Trade Name Freq PRN Reason Stop Dose Admin Acetaminophen 650 mg 05/20/19 14:51 Tylenol Tab* PO Q6H PRN PAIN - MODERATE Al Hydrox/Mg Hydrox/Simethicone 30 ml 05/20/19 14:06 05/30/19 13:13 Maalox Plus* PO 30 ml Q6H PRN Administration INDIGESTION Amlodipine Besylate 5 mg 05/21/19 09:00 06/15/19 08:46 Norvasc Tab* PO 5 mg DAILY CANDIDO Administration Bisacodyl 10 mg 05/20/19 14:06 06/02/19 19:12 Dulcolax Supp* [place] 10 mg DAILY PRN Administration CONSTIPATION Docusate Sodium 100 mg 05/20/19 21:00 06/15/19 08:46 Colace Cap* PO 100 mg BID CANDIDO Administration Enoxaparin Sodium 40 mg 06/08/19 09:00 06/15/19 08:46 Lovenox(*) SUBCUT 40 mg Q24H CANDIDO Administration Magnesium Hydroxide 30 ml 05/20/19 14:06 06/04/19 17:44 Milk Of Magnesia Liq* PO 15 ml Q6H PRN Administration CONSTIPATION Multivitamins/Minerals 1 tab 05/21/19 09:00 06/15/19 08:46 Theragran/Minerals Tab* PO 1 tab DAILY CANDIDO Administration Pto - Sleep Aid ( 1 dose 05/21/19 17:58 06/14/19 22:01 Doxylamine 25 Mg) PO 1 dose BEDTIME PRN Administration SLEEP Pto - Super C Mvi 1 dose 05/22/19 18:00 06/15/19 17:10 PO 1 dose BID WITH MEALS CANDIDO Administration Pto - Inner Defense 1 cap 05/22/19 17:00 06/15/19 17:12 Supplement 1 Cap PO Not Given 0900,1700 [facility] Pto - Vitamin De 5,000 units 05/27/19 17:00 06/15/19 17:10 Gold 5,000 Units PO 5,000 units 1700 CANDIDO Administration Pto - Super B Mvi 1 dose 05/27/19 17:00 06/15/19 17:10 Supplement PO 1 dose 1700 CANDIDO Administration Ondansetron HCl 4 mg 05/30/19 14:54 06/07/19 12:55 Zofran Odt Tab* PO 4 mg Q6H PRN Administration NAUSEA Polyethylene Glycol/Electrolytes 17 gm 05/26/19 21:00 06/14/19 21:51 Miralax* PO Not Given BEDTIME CANDIDO Senna 2 tab 05/20/19 14:06 06/14/19 21:50 Senokot 8.6 Mg Tab* PO 2 tab BEDTIME PRN Administration CONSTIPATION Vital Signs: Vital Signs Temp Pulse Resp BP Pulse Ox 98.1 F 82 20 150/70 99 06/15/19 16:07 06/15/19 16:07 06/15/19 16:07 06/15/19 16:07 06/15/19 17:54 Lab Results: Laboratory Results - last 24 hr 06/15/19 06/15/19 04:45 04:45 WBC 7.0 RBC 2.92 L Hgb 8.8 L Hct 26 L MCV 88 MCH 30 MCHC 34 RDW 16 H Plt Count 213 MPV 7.9 Neut % (Auto) 59.4 Lymph % (Auto) 25.3 [place] % (Auto) 11.0 Eos % (Auto) 3.6 Baso % (Auto) 0.7 Absolute Neuts (auto) 4.1 Absolute Lymphs (auto) 1.8 Absolute Monos (auto) 0.8 Absolute Eos (auto) 0.3 Absolute Basos (auto) 0.1 Absolute Nucleated RBC 0.0 Nucleated RBC % 0.0 Sodium 138 Potassium 3.9 Chloride 106 Carbon Dioxide 26 Anion Gap 6 BUN 14 Creatinine 0.80 Est GFR ( Amer) 87.4 Est GFR (Non-Af Amer) 72.2 BUN/Creatinine Ratio 17.5 Glucose 103 H Calcium 8.5 L Total Bilirubin 0.30 AST 12 L ALT 10 Alkaline Phosphatase 45 Total Protein 5.4 L Albumin 2.9 L Globulin 2.5 Albumin/Globulin Ratio 1.2 Exam: GENERAL: No acute distress. Alert and appropriate. LUNGS: Clear to auscultation bilaterally. HEART: Regular rate and rhythm. ABDOMEN: Active bowel sounds. Soft, nontender, nondistended. EXTREMITIES: +DP/PT pulses bilaterally. Left leg brace locked at 20 degrees of flexion. Right arm in a sling. SKIN: Left leg fasciotomy sites dressings c/d/i. Left upper thigh incision intact with some steri strips still hanging on. NEUROLOGICAL EXAM: Normal sensation x3. Impaired sensation in left leg below the knee. Trace left toe flexion and otherwise 0/5 left foot/ankle. Exam of rest of LLE motor limited by restrictions. RLE and LUE motor 5/5. RUE motor 5/ 5 in hand and wrist with rest of exam limited by sling. 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 1. Status post popliteal bypass: Hold on Plavix until after she has had surgery with potential skin grafting with the [facility]. She had followup with Vascular Surgery 06/03/2019 with sutures removed. 2. Left knee dislocation with ligament tears: NWB LLE. Brace on left leg locked to 20 degrees of flexion. ROM and stretching of her left foot/ankle 5 times per day to prevent contracture. Multipodus boot when in bed. f/u with orthopedics. 3. Right Humerus Fracture: Sling for RUE. AROM and PROM of right elbow and strengthening of wrist and hand. f/u with orthopedics. 3. Status post LLE fasciotomy with open wounds: Continue with moist to dry dressings b.i.d. to the left leg with ANIL wrap. Dr. Jones/plastic surgery follow up 06/23 at 1pm. 4. Acute blood loss anemia: stable. Hb 8.8. Follow routine labs. 5. 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 Multi Podus boot on LLE when she is in bed. 6. Impaired mobility: PT for transfer, bed mobility, and short distance gait training using a margareth walker and wheelchair. 7. Impaired self-care: OT for ADL training and equipment evaluation. 8. Advance directives: She is a full code. Her , Bradley Fairplay, is surrogate decision maker. 9. Vitamin D deficiency: has own supplement of 5000iu daily. 10. DVT prophylaxis: Lovenox. 06/15/19 19:49
[2019-06-15] MEDS: Polyethylene Glycol 3350* 17 GM PACKET PO SCH (20:43)
[2019-06-15] MEDS: [UNRECOGNIZED DRUG - OTHER] PO PRN (21:23)
[2019-06-15] MEDS: DOXYLAMINE PO PRN (21:23)
[2019-06-15] MEDS: Senna TAB 8.6 mg* TAB PO PRN (21:24)
[2019-06-16] MEDS: Multivitamins/Minerals TAB PO SCH (08:06)
[2019-06-16] MEDS: Enoxaparin(*) 40 MG/0.4 ML SYR SUBCUT SCH (08:06)
[2019-06-16] MEDS: Docusate CAP* 100 MG PO SCH ×2 (08:06→21:45)
[2019-06-16] MEDS: amLODIPine TAB* 5 MG PO SCH (08:06)
[2019-06-16] MEDS: [UNRECOGNIZED DRUG - OTHER] PO SCH ×2 (08:07→17:12)
[2019-06-16] MEDS: [UNRECOGNIZED DRUG - OTHER] PO SCH ×2 (09:51→17:14)
--- NOTE | 2019-06-16 17:06 | PN ---
Progress Note Date of Service: 06/16/19 Note: JI ASHRAF was visited. Therapy notes read and reviewed. She is making arrangements to get ready to go home. Otherwise she has no complaints. She will need to find a primary care doctor Current Medications: Active Medications Generic Name Dose Route Start Last Admin Trade Name Freq PRN Reason Stop Dose Admin Acetaminophen 650 mg 05/20/19 14:51 Tylenol Tab* PO Q6H PRN PAIN - MODERATE Al Hydrox/Mg Hydrox/Simethicone 30 ml 05/20/19 14:06 05/30/19 13:13 Maalox Plus* PO 30 ml Q6H PRN Administration INDIGESTION Amlodipine Besylate 5 mg 05/21/19 09:00 06/16/19 08:06 Norvasc Tab* PO 5 mg DAILY CANDIDO Administration Bisacodyl 10 mg 05/20/19 14:06 06/02/19 19:12 Dulcolax Supp* [place] 10 mg DAILY PRN Administration CONSTIPATION Docusate Sodium 100 mg 05/20/19 21:00 06/16/19 08:06 Colace Cap* PO 100 mg BID CANDIDO Administration Enoxaparin Sodium 40 mg 06/08/19 09:00 06/16/19 08:06 Lovenox(*) SUBCUT 40 mg Q24H CANDIDO Administration Magnesium Hydroxide 30 ml 05/20/19 14:06 06/04/19 17:44 Milk Of Magnesia Liq* PO 15 ml Q6H PRN Administration CONSTIPATION Multivitamins/Minerals 1 tab 05/21/19 09:00 06/16/19 08:06 Theragran/Minerals Tab* PO 1 tab DAILY CANDIDO Administration Pto - Sleep Aid ( 1 dose 05/21/19 17:58 06/15/19 21:23 Doxylamine 25 Mg) PO 1 dose BEDTIME PRN Administration SLEEP Pto - Super C Mvi 1 dose 05/22/19 18:00 06/16/19 08:07 PO 1 dose BID WITH MEALS CANDIDO Administration Pto - Inner Defense 1 cap 05/22/19 17:00 06/16/19 09:51 Supplement 1 Cap PO Not Given 0900,1700 CANDIDO Pto - Vitamin De 5,000 units 05/27/19 17:00 06/15/19 17:10 Gold 5,000 Units PO 5,000 units 1700 CANDIDO Administration Pto - Super B Mvi 1 dose 05/27/19 17:00 06/15/19 17:10 Supplement PO 1 dose 1700 CANDIDO Administration Ondansetron HCl 4 mg 05/30/19 14:54 06/07/19 12:55 Zofran Odt Tab* PO 4 mg Q6H PRN Administration NAUSEA Polyethylene Glycol/Electrolytes 17 gm 05/26/19 21:00 06/15/19 20:43 Miralax* PO Not Given BEDTIME CANDIDO Senna 2 tab 05/20/19 14:06 06/15/19 21:24 Senokot 8.6 Mg Tab* PO 2 tab BEDTIME PRN Administration CONSTIPATION Vital Signs: Vital Signs Temp Pulse Resp BP Pulse Ox 98.2 F 75 16 130/65 100 06/16/19 16:01 06/16/19 16:01 06/16/19 16:01 06/16/19 16:01 06/16/19 16:01 Exam: GENERAL: No acute distress. Alert and appropriate. LUNGS: Clear to auscultation bilaterally. HEART: Regular rate and rhythm. ABDOMEN: Active bowel sounds. Soft, nontender, nondistended. EXTREMITIES: +DP/PT pulses bilaterally. Left leg brace locked at 20 degrees of flexion. Right arm in a sling. SKIN: Left leg fasciotomy sites dressings c/d/i. Left upper thigh incision intact with some steri strips still hanging on. NEUROLOGICAL EXAM: Normal sensation x3. Impaired sensation in left leg below the knee. Trace left toe flexion and otherwise 0/5 left foot/ankle. Exam of rest of LLE motor limited by restrictions. RLE and LUE motor 5/5. RUE motor 5/ 5 in hand and wrist with rest of exam limited by sling. 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 1. Status post popliteal bypass: Hold on Plavix until after she has had surgery with potential skin grafting with the [facility]. She had followup with Vascular Surgery 06/03/2019 with sutures removed. 2. Left knee dislocation with ligament tears: NWB LLE. Brace on left leg locked to 20 degrees of flexion. ROM and stretching of her left foot/ankle 5 times per day to prevent contracture. Multipodus boot when in bed. f/u with orthopedics. 3. Right Humerus Fracture: Sling for RUE. AROM and PROM of right elbow and strengthening of wrist and hand. f/u with orthopedics. 3. Status post LLE fasciotomy with open wounds: Continue with moist to dry dressings b.i.d. to the left leg with ANIL wrap. Dr. Jones/plastic surgery follow up 06/23 at 1pm. 4. Acute blood loss anemia: stable. Hb 8.8. Follow routine labs. 5. 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 Multi Podus boot on LLE when she is in bed. 6. Impaired mobility: PT for transfer, bed mobility, and short distance gait training using a margareth walker and wheelchair. 7. Impaired self-care: OT for ADL training and equipment evaluation. 8. Advance directives: She is a full code. Her , Bradley Ashraf, is surrogate decision maker. 9. Vitamin D deficiency: has own supplement of 5000iu daily. 10. DVT prophylaxis: Lovenox. 06/16/19 17:07
[2019-06-16] MEDS: [UNRECOGNIZED DRUG - OTHER] PO SCH (17:12)
[2019-06-16] MEDS: [UNRECOGNIZED DRUG - OTHER] PO SCH (17:12)
[2019-06-16] MEDS: Senna TAB 8.6 mg* TAB PO PRN (21:45)
[2019-06-16] MEDS: DOXYLAMINE PO PRN (21:45)
[2019-06-16] MEDS: [UNRECOGNIZED DRUG - OTHER] PO PRN (21:45)
[2019-06-16] MEDS: Polyethylene Glycol 3350* 17 GM PACKET PO SCH (21:45)
[2019-06-17] MEDS: Multivitamins/Minerals TAB PO SCH (08:04)
[2019-06-17] MEDS: amLODIPine TAB* 5 MG PO SCH (08:04)
[2019-06-17] MEDS: Docusate CAP* 100 MG PO SCH ×2 (08:04→20:37)
[2019-06-17] MEDS: [UNRECOGNIZED DRUG - OTHER] PO SCH ×2 (08:04→16:58)
[2019-06-17] MEDS: [UNRECOGNIZED DRUG - OTHER] PO SCH ×2 (08:04→16:58)
[2019-06-17] MEDS: Enoxaparin(*) 40 MG/0.4 ML SYR SUBCUT SCH (08:06)
--- NOTE | 2019-06-17 16:51 | PN ---
Progress Note Date of Service: 06/17/19 Note: JI ASHRAF was visited. Therapy notes read and reviewed. She is doing okay, trying to figure out how to get home. Current Medications: Active Medications Generic Name Dose Route Start Last Admin Trade Name Freq PRN Reason Stop Dose Admin Acetaminophen 650 mg 05/20/19 14:51 Tylenol Tab* PO Q6H PRN PAIN - MODERATE Al Hydrox/Mg Hydrox/Simethicone 30 ml 05/20/19 14:06 05/30/19 13:13 Maalox Plus* PO 30 ml Q6H PRN Administration INDIGESTION Amlodipine Besylate 5 mg 05/21/19 09:00 06/17/19 08:04 Norvasc Tab* PO 5 mg DAILY CANDIDO Administration Bisacodyl 10 mg 05/20/19 14:06 06/02/19 19:12 Dulcolax Supp* [place] 10 mg DAILY PRN Administration CONSTIPATION Docusate Sodium 100 mg 05/20/19 21:00 06/17/19 08:04 Colace Cap* PO 100 mg BID CANDIDO Administration Enoxaparin Sodium 40 mg 06/08/19 09:00 06/17/19 08:06 Lovenox(*) SUBCUT 40 mg Q24H CANDIDO Administration Magnesium Hydroxide 30 ml 05/20/19 14:06 06/04/19 17:44 Milk Of Magnesia Liq* PO 15 ml Q6H PRN Administration CONSTIPATION Multivitamins/Minerals 1 tab 05/21/19 09:00 06/17/19 08:04 Theragran/Minerals Tab* PO 1 tab DAILY CANDIDO Administration Pto - Sleep Aid ( 1 dose 05/21/19 17:58 06/16/19 21:45 Doxylamine 25 Mg) PO 1 dose BEDTIME PRN Administration SLEEP Pto - Super C Mvi 1 dose 05/22/19 18:00 06/17/19 08:04 PO 1 dose BID WITH MEALS CANDIDO Administration Pto - Inner Defense 1 cap 05/22/19 17:00 06/17/19 08:04 Supplement 1 Cap PO 1 cap 0900,1700 CANDIDO Administration Pto - Vitamin De 5,000 units 05/27/19 17:00 06/16/19 17:12 Gold 5,000 Units PO 5,000 units 1700 CANDIDO Administration Pto - Super B Mvi 1 dose 05/27/19 17:00 06/16/19 17:12 Supplement PO 1 dose 1700 CANDIDO Administration Ondansetron HCl 4 mg 05/30/19 14:54 06/07/19 12:55 Zofran Odt Tab* PO 4 mg Q6H PRN Administration NAUSEA Polyethylene Glycol/Electrolytes 17 gm 05/26/19 21:00 06/16/19 21:45 Miralax* PO Not Given BEDTIME CANDIDO Senna 2 tab 05/20/19 14:06 06/16/19 21:45 Senokot 8.6 Mg Tab* PO 2 tab BEDTIME PRN Administration CONSTIPATION Vital Signs: Vital Signs Temp Pulse Resp BP Pulse Ox 98.0 F 74 16 147/85 100 06/17/19 16:00 06/17/19 16:00 06/17/19 16:00 06/17/19 16:00 06/17/19 16:00 Exam: GENERAL: No acute distress. Alert and appropriate. LUNGS: Clear to auscultation bilaterally. HEART: Regular rate and rhythm. ABDOMEN: Active bowel sounds. Soft, nontender, nondistended. EXTREMITIES: +DP/PT pulses bilaterally. Left leg brace locked at 20 degrees of flexion. Right arm in a sling. SKIN: Left leg fasciotomy sites dressings c/d/i. Left upper thigh incision intact with some steri strips still hanging on. NEUROLOGICAL EXAM: Normal sensation x3. Impaired sensation in left leg below the knee. Trace left toe flexion and otherwise 0/5 left foot/ankle. Exam of rest of LLE motor limited by restrictions. RLE and LUE motor 5/5. RUE motor 5/ 5 in hand and wrist with rest of exam limited by sling. 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 1. Status post popliteal bypass: Hold on Plavix until after she has had surgery with potential skin grafting with the [facility]. She had followup with Vascular Surgery 06/03/2019 with sutures removed. 2. Left knee dislocation with ligament tears: NWB LLE. Brace on left leg locked to 20 degrees of flexion. ROM and stretching of her left foot/ankle 5 times per day to prevent contracture. Multipodus boot when in bed. f/u with orthopedics. 3. Right Humerus Fracture: Sling for RUE. AROM and PROM of right elbow and strengthening of wrist and hand. f/u with orthopedics. 3. Status post LLE fasciotomy with open wounds: Continue with moist to dry dressings b.i.d. to the left leg with ANIL wrap. Dr. Jones/plastic surgery follow up 06/23 at 1pm. 4. Acute blood loss anemia: stable. Hb 8.8. Follow routine labs. 5. 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 Multi Podus boot on LLE when she is in bed. 6. Impaired mobility: PT for transfer, bed mobility, and short distance gait training using a margareth walker and wheelchair. 7. Impaired self-care: OT for ADL training and equipment evaluation. 8. Advance directives: She is a full code. Her , Bradley Ashraf, is surrogate decision maker. 9. Vitamin D deficiency: has own supplement of 5000iu daily. 10. DVT prophylaxis: Lovenox. 06/17/19 16:51
[2019-06-17] MEDS: [UNRECOGNIZED DRUG - OTHER] PO SCH (16:58)
[2019-06-17] MEDS: [UNRECOGNIZED DRUG - OTHER] PO SCH (16:59)
[2019-06-17] MEDS: Senna TAB 8.6 mg* TAB PO PRN (20:37)
[2019-06-17] MEDS: [UNRECOGNIZED DRUG - OTHER] PO PRN (21:23)
[2019-06-17] MEDS: DOXYLAMINE PO PRN (21:23)
[2019-06-17] MEDS: Polyethylene Glycol 3350* 17 GM PACKET PO SCH (21:29)
[2019-06-18] MEDS: amLODIPine TAB* 5 MG PO SCH (08:08)
[2019-06-18] MEDS: [UNRECOGNIZED DRUG - OTHER] PO SCH ×2 (08:08→16:58)
[2019-06-18] MEDS: [UNRECOGNIZED DRUG - OTHER] PO SCH ×2 (08:08→16:58)
[2019-06-18] MEDS: Docusate CAP* 100 MG PO SCH ×2 (08:09→21:02)
[2019-06-18] MEDS: Enoxaparin(*) 40 MG/0.4 ML SYR SUBCUT SCH (08:09)
[2019-06-18] MEDS: Multivitamins/Minerals TAB PO SCH (08:09)
--- NOTE | 2019-06-18 11:16 | PN ---
Progress Note Date of Service: 06/18/19 Note: JI ASHRAF was visited. Nursing and therapy notes read and reviewed. She is doing well without complaints. Current Medications: Active Medications Generic Name Dose Route Start Last Admin Trade Name Freq PRN Reason Stop Dose Admin Acetaminophen 650 mg 05/20/19 14:51 Tylenol Tab* PO Q6H PRN PAIN - MODERATE Al Hydrox/Mg Hydrox/Simethicone 30 ml 05/20/19 14:06 05/30/19 13:13 Maalox Plus* PO 30 ml Q6H PRN Administration INDIGESTION Amlodipine Besylate 5 mg 05/21/19 09:00 06/18/19 08:08 Norvasc Tab* PO 5 mg DAILY CANDIDO Administration Bisacodyl 10 mg 05/20/19 14:06 06/02/19 19:12 Dulcolax Supp* OK 10 mg DAILY PRN Administration CONSTIPATION Docusate Sodium 100 mg 05/20/19 21:00 06/18/19 08:09 Colace Cap* PO 100 mg BID CANDIDO Administration Enoxaparin Sodium 40 mg 06/08/19 09:00 06/18/19 08:09 Lovenox(*) SUBCUT 40 mg Q24H CANDIDO Administration Magnesium Hydroxide 30 ml 05/20/19 14:06 06/04/19 17:44 Milk Of Magnesia Liq* PO 15 ml Q6H PRN Administration CONSTIPATION Multivitamins/Minerals 1 tab 05/21/19 09:00 06/18/19 08:09 Theragran/Minerals Tab* PO 1 tab DAILY CANDIDO Administration Pto - Sleep Aid ( 1 dose 05/21/19 17:58 06/17/19 21:23 Doxylamine 25 Mg) PO 1 dose BEDTIME PRN Administration SLEEP Pto - Super C Mvi 1 dose 05/22/19 18:00 06/18/19 08:08 PO 1 dose BID WITH MEALS CANDIDO Administration Pto - Inner Defense 1 cap 05/22/19 17:00 06/18/19 08:08 Supplement 1 Cap PO 1 cap 0900,1700 CANDIDO Administration Pto - Vitamin De 5,000 units 05/27/19 17:00 06/17/19 16:58 Gold 5,000 Units PO 5,000 units 1700 CANDIDO Administration Pto - Super B Mvi 1 dose 05/27/19 17:00 06/17/19 16:59 Supplement PO 1 dose 1700 CANDIDO Administration Ondansetron HCl 4 mg 05/30/19 14:54 06/07/19 12:55 Zofran Odt Tab* PO 4 mg Q6H PRN Administration NAUSEA Polyethylene Glycol/Electrolytes 17 gm 05/26/19 21:00 06/17/19 21:29 Miralax* PO Not Given BEDTIME CANDIDO Senna 2 tab 05/20/19 14:06 06/17/19 20:37 Senokot 8.6 Mg Tab* PO 2 tab BEDTIME PRN Administration CONSTIPATION Vital Signs: Vital Signs Temp Pulse Resp BP Pulse Ox 98.5 F 73 16 137/62 100 06/18/19 04:46 06/18/19 04:46 06/18/19 04:46 06/18/19 04:46 06/18/19 04:46 Exam: GENERAL: No acute distress. Alert and appropriate. LUNGS: Clear to auscultation bilaterally. HEART: Regular rate and rhythm. ABDOMEN: Active bowel sounds. Soft, nontender, nondistended. EXTREMITIES: +DP/PT pulses bilaterally. Left leg brace locked at 20 degrees of flexion. Right arm in a sling. SKIN: Left leg fasciotomy sites dressings c/d/i. Left upper thigh incision intact with some steri strips still hanging on. NEUROLOGICAL EXAM: Normal sensation x3. Impaired sensation in left leg below the knee. Trace left toe flexion and otherwise 0/5 left foot/ankle. Exam of rest of LLE motor limited by restrictions. RLE and LUE motor 5/5. RUE motor 5/ 5 in hand and wrist with rest of exam limited by sling. 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 1. Status post popliteal bypass: Hold on Plavix until after she has had surgery with potential skin grafting with [facility]. She had followup with [facility] 06/03/2019 with sutures removed. 2. Left knee dislocation with ligament tears: NWB LLE. Brace on left leg locked to 20 degrees of flexion. ROM and stretching of her left foot/ankle 5 times per day to prevent contracture. Multipodus boot when in bed. f/u with orthopedics. 3. Right Humerus Fracture: Sling for RUE. AROM and PROM of right elbow and strengthening of wrist and hand. f/u with orthopedics. 3. Status post LLE fasciotomy with open wounds: Continue with moist to dry dressings b.i.d. to the left leg with ANIL wrap. Dr. Jones/plastic surgery follow up 06/23 at 1pm. 4. Acute blood loss anemia: stable. Hb 8.8. Follow routine labs. 5. 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 Multi Podus boot on LLE when she is in bed. 6. Impaired mobility: PT for transfer, bed mobility, and short distance gait training using a margareth walker and wheelchair. 7. Impaired self-care: OT for ADL training and equipment evaluation. 8. Advance directives: She is a full code. Her , Bradley Ashraf, is surrogate decision maker. 9. Vitamin D deficiency: has own supplement of 5000iu daily. 10. DVT prophylaxis: Lovenox. 06/18/19 11:16
[2019-06-18] MEDS: [UNRECOGNIZED DRUG - OTHER] PO SCH (16:58)
[2019-06-18] MEDS: [UNRECOGNIZED DRUG - OTHER] PO SCH (16:58)
[2019-06-18] MEDS: Polyethylene Glycol 3350* 17 GM PACKET PO SCH (20:44)
[2019-06-18] MEDS: [UNRECOGNIZED DRUG - OTHER] PO PRN (21:02)
[2019-06-18] MEDS: Senna TAB 8.6 mg* TAB PO PRN (21:02)
[2019-06-18] MEDS: DOXYLAMINE PO PRN (21:02)
[2019-06-19] MEDS: Multivitamins/Minerals TAB PO SCH (09:03)
[2019-06-19] MEDS: [UNRECOGNIZED DRUG - OTHER] PO SCH ×2 (09:03→16:57)
[2019-06-19] MEDS: [UNRECOGNIZED DRUG - OTHER] PO SCH ×2 (09:03→16:57)
[2019-06-19] MEDS: amLODIPine TAB* 5 MG PO SCH (09:04)
[2019-06-19] MEDS: Docusate CAP* 100 MG PO SCH ×2 (09:04→21:21)
[2019-06-19] MEDS: Enoxaparin(*) 40 MG/0.4 ML SYR SUBCUT SCH (09:05)
--- NOTE | 2019-06-19 16:38 | PN ---
Progress Note Date of Service: 06/19/19 Note: JI ASHRAF was visited. Nursing notes read and reviewed. She is otherwise doing ok. Current Medications: Active Medications Generic Name Dose Route Start Last Admin Trade Name Freq PRN Reason Stop Dose Admin Acetaminophen 650 mg 05/20/19 14:51 Tylenol Tab* PO Q6H PRN PAIN - MODERATE Al Hydrox/Mg Hydrox/Simethicone 30 ml 05/20/19 14:06 05/30/19 13:13 Maalox Plus* PO 30 ml Q6H PRN Administration INDIGESTION Amlodipine Besylate 5 mg 05/21/19 09:00 06/19/19 09:04 Norvasc Tab* PO 5 mg DAILY CANDIDO Administration Bisacodyl 10 mg 05/20/19 14:06 06/02/19 19:12 Dulcolax Supp* IN 10 mg DAILY PRN Administration CONSTIPATION Docusate Sodium 100 mg 05/20/19 21:00 06/19/19 09:04 Colace Cap* PO 100 mg BID CANDIDO Administration Enoxaparin Sodium 40 mg 06/08/19 09:00 06/19/19 09:05 Lovenox(*) SUBCUT 40 mg Q24H CANDIDO Administration Magnesium Hydroxide 30 ml 05/20/19 14:06 06/04/19 17:44 Milk Of Magnesia Liq* PO 15 ml Q6H PRN Administration CONSTIPATION Multivitamins/Minerals 1 tab 05/21/19 09:00 06/19/19 09:03 Theragran/Minerals Tab* PO 1 tab DAILY CANDIDO Administration Pto - Sleep Aid ( 1 dose 05/21/19 17:58 06/18/19 21:02 Doxylamine 25 Mg) PO 1 dose BEDTIME PRN Administration SLEEP Pto - Super C Mvi 1 dose 05/22/19 18:00 06/19/19 09:03 PO 1 dose BID WITH MEALS CANDIDO Administration Pto - Inner Defense 1 cap 05/22/19 17:00 06/19/19 09:03 Supplement 1 Cap PO 1 cap 0900,1700 CANDIDO Administration Pto - Vitamin De 5,000 units 05/27/19 17:00 06/18/19 16:58 Gold 5,000 Units PO 5,000 units 1700 CANDIDO Administration Pto - Super B Mvi 1 dose 05/27/19 17:00 06/18/19 16:58 Supplement PO 1 dose 1700 CANDIDO Administration Ondansetron HCl 4 mg 05/30/19 14:54 06/07/19 12:55 Zofran Odt Tab* PO 4 mg Q6H PRN Administration NAUSEA Polyethylene Glycol/Electrolytes 17 gm 05/26/19 21:00 06/18/19 20:44 Miralax* PO Not Given BEDTIME CANDIDO Senna 2 tab 05/20/19 14:06 06/18/19 21:02 Senokot 8.6 Mg Tab* PO 2 tab BEDTIME PRN Administration CONSTIPATION Vital Signs: Vital Signs Temp Pulse Resp BP Pulse Ox 98.2 F 81 18 147/68 100 06/19/19 15:00 06/19/19 15:00 06/19/19 15:00 06/19/19 15:00 06/19/19 15:00 Exam: GENERAL: No acute distress. Alert and appropriate. LUNGS: Clear to auscultation bilaterally. HEART: Regular rate and rhythm. ABDOMEN: Active bowel sounds. Soft, nontender, nondistended. EXTREMITIES: +DP/PT pulses bilaterally. Left leg brace locked at 20 degrees of flexion. Right arm in a sling. SKIN: Left leg fasciotomy sites dressings c/d/i. Left upper thigh incision intact with some steri strips still hanging on. NEUROLOGICAL EXAM: Normal sensation x3. Impaired sensation in left leg below the knee. Trace left toe flexion and otherwise 0/5 left foot/ankle. Exam of rest of LLE motor limited by restrictions. RLE and LUE motor 5/5. RUE motor 5/ 5 in hand and wrist with rest of exam limited by sling. 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 1. Status post popliteal bypass: Hold on Plavix until after she has had surgery with potential skin grafting with [facility]. She had followup with [facility] 06/03/2019 with sutures removed. 2. Left knee dislocation with ligament tears: NWB LLE. Brace on left leg locked to 20 degrees of flexion. ROM and stretching of her left foot/ankle 5 times per day to prevent contracture. Multipodus boot when in bed. f/u with orthopedics. 3. Right Humerus Fracture: Sling for RUE. AROM and PROM of right elbow and strengthening of wrist and hand. f/u with orthopedics. 3. Status post LLE fasciotomy with open wounds: Continue with moist to dry dressings b.i.d. to the left leg with ANIL wrap. Dr. Jones/plastic surgery follow up 06/23 at 1pm. 4. Acute blood loss anemia: stable. Hb 8.8. Follow routine labs. 5. 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 Multi Podus boot on LLE when she is in bed. 6. Impaired mobility: PT for transfer, bed mobility, and short distance gait training using a margareth walker and wheelchair. 7. Impaired self-care: OT for ADL training and equipment evaluation. 8. Advance directives: She is a full code. Her , Bradley Ashraf, is surrogate decision maker. 9. Vitamin D deficiency: has own supplement of 5000iu daily. 10. DVT prophylaxis: Lovenox. 06/19/19 16:38
[2019-06-19] MEDS: [UNRECOGNIZED DRUG - OTHER] PO SCH (16:57)
[2019-06-19] MEDS: [UNRECOGNIZED DRUG - OTHER] PO SCH (16:57)
[2019-06-19] MEDS: [UNRECOGNIZED DRUG - OTHER] PO PRN (21:21)
[2019-06-19] MEDS: DOXYLAMINE PO PRN (21:21)
[2019-06-19] MEDS: Polyethylene Glycol 3350* 17 GM PACKET PO SCH (21:21)
[2019-06-19] MEDS: Senna TAB 8.6 mg* TAB PO PRN (21:21)
[2019-06-20] MEDS: [UNRECOGNIZED DRUG - OTHER] PO SCH ×2 (07:56→17:12)
[2019-06-20] MEDS: amLODIPine TAB* 5 MG PO SCH (07:57)
[2019-06-20] MEDS: [UNRECOGNIZED DRUG - OTHER] PO SCH ×2 (07:57→17:12)
[2019-06-20] MEDS: Multivitamins/Minerals TAB PO SCH (07:57)
[2019-06-20] MEDS: Docusate CAP* 100 MG PO SCH ×2 (07:57→20:56)
[2019-06-20] MEDS: Enoxaparin(*) 40 MG/0.4 ML SYR SUBCUT SCH (07:57)
[2019-06-20] MEDS: [UNRECOGNIZED DRUG - OTHER] PO SCH (17:12)
[2019-06-20] MEDS: [UNRECOGNIZED DRUG - OTHER] PO SCH (17:12)
[2019-06-20] MEDS: Senna TAB 8.6 mg* TAB PO PRN (20:56)
[2019-06-20] MEDS: [UNRECOGNIZED DRUG - OTHER] PO PRN (20:56)
[2019-06-20] MEDS: DOXYLAMINE PO PRN (20:56)
[2019-06-20] MEDS: Polyethylene Glycol 3350* 17 GM PACKET PO SCH (20:58)
--- NOTE | 2019-06-20 21:28 | PN ---
Progress Note Date of Service: 06/20/19 Note: JI ASHRAF was visited. Therapy notes read and reviewed. She is doing much better, able to propel wheelchair down ng with her one arm and one leg. Current Medications: Active Medications Generic Name Dose Route Start Last Admin Trade Name Freq PRN Reason Stop Dose Admin Acetaminophen 650 mg 05/20/19 14:51 Tylenol Tab* PO Q6H PRN PAIN - MODERATE Al Hydrox/Mg Hydrox/Simethicone 30 ml 05/20/19 14:06 05/30/19 13:13 Maalox Plus* PO 30 ml Q6H PRN Administration INDIGESTION Amlodipine Besylate 5 mg 05/21/19 09:00 06/20/19 07:57 Norvasc Tab* PO 5 mg DAILY CANDIDO Administration Bisacodyl 10 mg 05/20/19 14:06 06/02/19 19:12 Dulcolax Supp* [place] 10 mg DAILY PRN Administration CONSTIPATION Docusate Sodium 100 mg 05/20/19 21:00 06/20/19 20:56 Colace Cap* PO 100 mg BID CANDIDO Administration Enoxaparin Sodium 40 mg 06/08/19 09:00 06/20/19 07:57 Lovenox(*) SUBCUT 40 mg Q24H CANDIDO Administration Magnesium Hydroxide 30 ml 05/20/19 14:06 06/04/19 17:44 Milk Of Magnesia Liq* PO 15 ml Q6H PRN Administration CONSTIPATION Multivitamins/Minerals 1 tab 05/21/19 09:00 06/20/19 07:57 Theragran/Minerals Tab* PO 1 tab DAILY CANDIDO Administration Pto - Sleep Aid ( 1 dose 05/21/19 17:58 06/20/19 20:56 Doxylamine 25 Mg) PO 1 dose BEDTIME PRN Administration SLEEP Pto - Super C Mvi 1 dose 05/22/19 18:00 06/20/19 17:12 PO 1 dose BID WITH MEALS CANDIDO Administration Pto - Inner Defense 1 cap 05/22/19 17:00 06/20/19 17:12 Supplement 1 Cap PO 1 cap 0900,1700 CANDIDO Administration Pto - Vitamin De 5,000 units 05/27/19 17:00 06/20/19 17:12 Gold 5,000 Units PO 5,000 units 1700 CANDIDO Administration Pto - Super B Mvi 1 dose 05/27/19 17:00 06/20/19 17:12 Supplement PO 1 dose 1700 CANDIDO Administration Ondansetron HCl 4 mg 05/30/19 14:54 06/07/19 12:55 Zofran Odt Tab* PO 4 mg Q6H PRN Administration NAUSEA Polyethylene Glycol/Electrolytes 17 gm 05/26/19 21:00 06/20/19 20:58 Miralax* PO Not Given BEDTIME CANDIDO Senna 2 tab 05/20/19 14:06 06/20/19 20:56 Senokot 8.6 Mg Tab* PO 2 tab BEDTIME PRN Administration CONSTIPATION Vital Signs: Vital Signs Temp Pulse Resp BP Pulse Ox 98.4 F 73 16 140/65 100 06/20/19 16:00 06/20/19 16:00 06/20/19 16:00 06/20/19 16:00 06/20/19 18:52 Exam: GENERAL: No acute distress. Alert and appropriate. LUNGS: Clear to auscultation bilaterally. HEART: Regular rate and rhythm. ABDOMEN: Active bowel sounds. Soft, nontender, nondistended. EXTREMITIES: +DP/PT pulses bilaterally. Left leg brace locked at 20 degrees of flexion. Right arm in a sling. SKIN: Left leg fasciotomy sites dressings c/d/i. Left upper thigh incision intact with some steri strips still hanging on. NEUROLOGICAL EXAM: Normal sensation x3. Impaired sensation in left leg below the knee. Trace left toe flexion and otherwise 0/5 left foot/ankle. Exam of rest of LLE motor limited by restrictions. RLE and LUE motor 5/5. RUE motor 5/ 5 in hand and wrist with rest of exam limited by sling. 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 1. Status post popliteal bypass: Hold on Plavix until after she has had surgery with potential skin grafting with [facility]. She had followup with [facility] Surgery 06/03/2019 with sutures removed. 2. Left knee dislocation with ligament tears: NWB LLE. Brace on left leg locked to 20 degrees of flexion. ROM and stretching of her left foot/ankle 5 times per day to prevent contracture. Multipodus boot when in bed. f/u with orthopedics. 3. Right Humerus Fracture: Sling for RUE. AROM and PROM of right elbow and strengthening of wrist and hand. f/u with orthopedics. 3. Status post LLE fasciotomy with open wounds: Continue with moist to dry dressings b.i.d. to the left leg with ANIL wrap. Dr. Jones/plastic surgery follow up 06/23 at 1pm. 4. Acute blood loss anemia: stable. Hb 8.8. Follow routine labs. 5. 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 Multi Podus boot on LLE when she is in bed. 6. Impaired mobility: PT for transfer, bed mobility, and short distance gait training using a margareth walker and wheelchair. 7. Impaired self-care: OT for ADL training and equipment evaluation. 8. Advance directives: She is a full code. Her , Bradley Ashraf, is surrogate decision maker. 9. Vitamin D deficiency: has own supplement of 5000iu daily. 10. DVT prophylaxis: Lovenox. 06/20/19 21:28
[2019-06-21] MEDS: Docusate CAP* 100 MG PO SCH ×2 (09:43→21:29)
[2019-06-21] MEDS: amLODIPine TAB* 5 MG PO SCH (09:43)
[2019-06-21] MEDS: Multivitamins/Minerals TAB PO SCH (09:43)
[2019-06-21] MEDS: [UNRECOGNIZED DRUG - OTHER] PO SCH ×2 (09:46→17:10)
[2019-06-21] MEDS: [UNRECOGNIZED DRUG - OTHER] PO SCH ×2 (09:47→17:10)
--- NOTE | 2019-06-21 12:44 | PMRUTEAM ---
PMRU: Team Meeting Current Status: Physical Therapy: Current Status Current Rolling Status Supervision/Touching Current Supine <-> Sit Status Supervision/Touching Current Sit <-> Stand Status Supervision/Touching Current Bed <-> Chair Status Partial/Moderate Transfer/Bed Mobility Larry Walker,Slide Board Recommended Devices Transfer Mobility Comment minAx with HW/gait belt from low chair. Current Picking Up Object Not attempted Status Current Car Transfer Status Not attempted Current Ambulation Assistance Not Applicable Status Manual Wheelchair Control/ Left UE Technique Current Wheelchair Propulsion Supervision/Touching Ability Status Wheelchair Distance (ft) 1000 Current Stair Climbing Status Not Applicable Current Curb Assistance Status Not Applicable Objective Comments patient demosntrates good overall ability in wheelchair mobiltiy with LUE and RLE. patient demonstrates improved problemsolving in novel situations and has geatly improved endurance. Occupational Therapy: Current Status Current Upper Body Dressing Setup or Clean-up Assist Status Upper Body Dressing Progress Hayden to pull shirt down trunk Current Lower Body Dressing Substantial/Maximal Status Current Footwear Status Dependent Current Bathing Status Partial/Moderate Current Grooming Status Setup or Clean-up Assist Current Toileting Status Dependent Current Toilet Transfer Status Partial/Moderate Toilet Transfer Progress min/modA STS from [facility] Current Eating Status Independent Nursing: Current Status Skin Deviations [Left Knee] Incision Skin Deviations [Left Lower Abrasion Arm] Skin Deviations [Right Arm] Bruise Skin Deviations [Left Lower Incision Leg] Skin Deviations [Left Upper Incision Thigh] Skin Deviations [Right Groin] Previous Access Point Skin Deviations [Coccyx] Skin Tear Skin Deviation Description [ immobilizer in place Left Knee] Skin Deviation Description [ sling in place Right Arm] Skin Deviation Description [ knee immobilizer and multipodus boot in place Left Lower Leg] Skin Deviation Description [ well approximated, no steri strips seen Left Upper Thigh] Skin Deviation Description [ scabs Right Groin] Skin Deviation Description [ didn't visualize Coccyx] Bladder Current Status using bedpan to void. dribbling Bowel Current Status colace given. bm this am Nutrition Current Status appetite good Medication Current Status no pain meds given Rec Therapy: Current Status Summary of Assessment and Recreation therapy assessment is complete and pt Clinical Impression is aware of services. Pt declines offers for formal activities, but is active in independent leisure interests and open to continued staff visits and pet therapy. Treatment Goals Pt will engage in leisure activities while on the unit as tolerated Treatment Plan Provide recreation therapy services and encourge involvement Social Work: Current Status Discharge Plan return home with home care svs and family support Potential for Family Training pt's daughter has attended d/c training Anticipated Discharge Home Destination Discharge With home care svs and family support Nutrition: Current Status Monitoring pt continues w/good appetite; usually consuming 95 -100% of meals. Regular diet appropriate. Pt remains w/ increased nutrient needs for wound healing; estimated nutrient needs established below. She denies need for additions to her meals; declines snacks. Labs reviewed (06/15): Cr now WNL (.8), electrolytes WNL; BG 103; will continue to monitor weekly labs. BMs q 1-2 days per documentation. Will continue to monitor and encourage adequate kcals and good protein sources for wound healing. Goals: Physical Therapy: Goals Goals to Be Accomplished in ( 21-28 Days) Goal: Rolling Assistance Independent Goal Supine <-> Sit Status Independent Goal Sit <-> Stand Status Supervision/Touching Goal Bed <-> Chair Status Supervision/Touching Transfer/Bed Mobility Larry Walker Recommended Devices Goal: Picking Up Object Supervision/Touching Goal: Car Transfer Status Partial/Moderate Goal: Ambulation Assistance Not attempted Goal: Wheelchair Propulsion Independent Ability Wheelchair Distance (ft) 1500 Goal: Stairs Assistance Not attempted Goal: Curb Assistance Not attempted Goal: Home Exercise Program Independent Assistance Occupational Therapy: Goals Goals to be Completed in (Days 21-28 days ) Goal Upper Body Dressing Independent Routine Goal Lower Body Dressing Independent Routine Goal Footwear Status Independent Goal Bathing Routine (OT) Independent Goal Grooming Routine Independent Goal Toilet Hygiene and Independent Clothing Management Routine Goal Toilet Transfer Routine Independent Goal Functional Transfers for Independent ADL Goal Feeding Routine Independent Goal Light Housekeeping Tasks Independent Nutrition: Goals Intervention Goals 1) Adequate po intake to support lean body mass, wound healing, and hydration status 2) Maintain fluid/electrolyte balance w/ adequate po intake 3) Maintain bowel regularity w/ adequate po intake and bowel regimen w/o development of diarrhea/ constipation Social Work: Goals Discharge Plan return home with home care svs and family support Potential for Family Training pt's daughter has attended d/c training Anticipated Discharge Home Destination Discharge With home care svs and family support Nursing: Goals Bladder Goal supervision Bowel Goal supervision Nutrition Goal 100% of all meals consumed Medication Goal independent Care Plan: Care Plan ADL's - Improve/Maintain Start: 05/20/19 16:10 Freq: [id number] Status: Active Target: 05/21/19 Protocol: Activity Type Activity Date Activity User E-Sign Co-Sign Detail Recorded Client Recorded Date Recorded By Document 06/20/19 11:01 [id number] 06/20/19 11:01 [id number] 06/20/19 11:01 PMRU Outcome: ADL's/ADL Transfers Orders/Interventions Occupational Therapy Evaluation & Treatment Communication Tool in Patient Room Device Yes Address Deficits Secondary To: s/p fall with left knee dislocation and R humerus fx Patient to receive OT 5x/wk for 60-120 Therex min/day Self Care Management Group Therapy UE/LE ADL's with Assist Yes ADL Transfers with Assist Yes Toileting: Transfers,Clothing Management Yes ,Hygeine w/Assist Progression Toward Outcome/Goals Not Progressing Lack of Progression Comment continues to have difficulty making functional progress 2* NWB status and balance deficits. Planned d/c home with assist this (06/22 ) Cardiovascular- Improve/Maintain Start: 05/20/19 16:10 Freq: DAILY@ Status: Complete Target: 06/17/19 Protocol: Activity Type Activity Date Activity User E-Sign Co-Sign Detail Recorded Client Recorded Date Recorded By Document 06/07/19 16:04 [id number] 06/07/19 16:05 [id number] 06/07/19 16:04 PMRU Outcome: Cardiovascular Vital Signs q Shift for 48hrs Then BID Yes Daily Weight Ordered No Current Cardiovascular Outcome/Goal Maintain/ Achieve Baseline HR, BP , Perfusion Progression Toward Outcome/Goal Goals Met Outcomes/Goals Met Maintain/ Achieve Baseline HR, BP , Perfusion DVT Prophylaxis- Improve/Maintain Start: 05/20/19 16:10 Freq: [id number] Status: Active Target: 06/23/19 Protocol: Activity Type Activity Date Activity User E-Sign Co-Sign Detail Recorded Client Recorded Date Recorded By Document 06/21/19 07:00 [id number] 06/21/19 09:49 [id number] 06/21/19 07:00 PMRU Outcome: DVT Prophylaxis Current DVT Outcome/Goals Remains Free of DVT Complies with DVT Prophylaxis /Treatment Demonstrates Knowledge of DVT Prevention/ Treatment Progression Toward Outcome/Goals Progressing Discharge Planning - Improve/Maintain Start: 05/20/19 16:10 Freq: [id number] Status: Active Target: 06/23/19 Protocol: Activity Type Activity Date Activity User E-Sign Co-Sign Detail Recorded Client Recorded Date Recorded By Document 06/21/19 07:00 [id number] 06/21/19 09:49 [id number] 06/21/19 07:00 PMRU Outcome: Discharge Planning Update Patient Family No Current Discharge Planning Outcome/Goals Demonstrates Understanding of Discharge Plan Homecare Referral - See Comment Progression Toward Outcome/Goals Progressing Education-Improve/Maintain Start: 05/20/19 16:10 Freq: [id number] Status: Active Target: 06/23/19 Protocol: Activity Type Activity Date Activity User E-Sign Co-Sign Detail Recorded Client Recorded Date Recorded By Document 06/21/19 07:00 [id number] 06/21/19 09:49 [id number] 06/21/19 07:00 PMRU Outcome: Education Current Education Outcome/Goals Demonstrate/ Verbalize Understanding of Written Discharge Instructions Demonstrates Skills Encourage Questions Progression Toward Outcome/Goals Progressing Medication Administration Start: 06/20/19 11:27 Freq: [id number] Status: Active Target: 06/23/19 Protocol: Activity Type Activity Date Activity User E-Sign Co-Sign Detail Recorded Client Recorded Date Recorded By Document 06/21/19 07:00 [id number] 06/21/19 09:49 [id number] 06/21/19 07:00 PMRU Outcome: Medication Administration Assess Patient Knowledge/Teach Med Yes Education for all Meds Current Web Feeder Outcome/Goals Patient Independent with Medication Administration at Home Demonstrates Understanding Progression Towards Outcome/Goals Progressing Is Patient Going Home on Lovenox? Yes If Patient is Going Home on Lovenox, Who self Will Administer Mobility- Improve/Maintain Start: 05/20/19 16:10 Freq: [id number] Status: Active Target: 05/21/19 Protocol: Activity Type Activity Date Activity User E-Sign Co-Sign Detail Recorded Client Recorded Date Recorded By Document 06/20/19 18:51 [id number] 06/20/19 18:51 [id number] 06/20/19 18:51 PMRU Outcome: Mobility Physical Therapy Evaluation and Yes Treatment Activity OOB with Assistance Yes WBAT No NWB Yes: NWB RUE/ LLE TTWB No Device Yes Assistance Yes Patient to be seen 5x/wk for 60-120 min/ Therex day for: Mobility Training W/C Mobility Balance Other Other Therapy Comment discharge training, discharge planning Current Mobility Outcome/Goals Improve Mobility Status Demonstrates Proper Use of Assistive Devices Progression Toward Outcome/Goals Progressing Bed Mobility Yes: independent Transfers Yes: supervision with SB or HW Gait x ft No W/C Mobility x ft Yes: independent 150 ' Up/Down Stairs No: ramp entrance recommended With HEP Yes: independent Rec Therapy- Improve/Maintain Start: 05/23/19 14:49 Freq: [id number] Status: Active Target: 06/21/19 Protocol: Activity Type Activity Date Activity User E-Sign Co-Sign Detail Recorded Client Recorded Date Recorded By Document 06/16/19 16:17 [id number] 06/16/19 16:19 [id number] 06/16/19 16:17 PMRU Outcome: Recreation Therapy Current Rec Ther Outcome/Goals Complete Rec Therapy Assessment Meet with Patient Regularly for Support Encourage Leisure Involvement Progression Toward Outcome/Goals Progressing Outcome/Goals Met Complete Rec Therapy Assessment Outcome/Goals Met Comment Recreation therapy assessment complete Safety- Improve/Maintain Start: 05/20/19 14:55 Freq: [id number] Status: Active Target: 06/23/19 Protocol: Activity Type Activity Date Activity User E-Sign Co-Sign Detail Recorded Client Recorded Date Recorded By Document 06/21/19 07:00 [id number] 06/21/19 09:49 [id number] 06/21/19 07:00 PMRU Outcome: Safety Current Safety Outcome/Goals Remain Free of Injury or Harm Cooperates with Safety Measures for Least Restrictive Environment Prevent Falls/ Injury Progression Toward Outcome/Goals Progressing Skin- Improve/Maintain Start: 05/20/19 16:10 Freq: [id number] Status: Active Target: 06/23/19 Protocol: Activity Type Activity Date Activity User E-Sign Co-Sign Detail Recorded Client Recorded Date Recorded By Document 06/21/19 07:00 [id number] 06/21/19 09:49 [id number] 06/21/19 07:00 PMRU Outcome: Skin Skin Risk Level Mild Risk Skin Orders Dressing Change Teach Patient Multipodus Boot Skin Orders Comment Dressing change at fasciotomy sites to LLE Current Skin Outcome/Goals Maintain/ Improve Skin Integrity Surgical Incisions Healing Progression Toward Outcome/Goals Progressing - Interdisciplinary Staff Present Administration Clerk/Social Work Staff Present: Katy Gaxiola LMSW Nursing Staff Present: Neyda Aguirre LPN OT Staff Present: Sofie Agustin PT Staff Present: Braeden Montano SORTER PRICER Staff Present: Renny Streeter Medicine Note: Length of Stay: 1 day Anticipated Discharge Destination: Home Tentative Discharge Date: 06/22/19 Discharged to: Home
[2019-06-21] MEDS: Enoxaparin(*) 40 MG/0.4 ML SYR SUBCUT SCH (15:44)
[2019-06-21] MEDS: [UNRECOGNIZED DRUG - OTHER] PO SCH (17:10)
[2019-06-21] MEDS: [UNRECOGNIZED DRUG - OTHER] PO SCH (17:10)
--- NOTE | 2019-06-21 19:51 | PN ---
Progress Note Date of Service: 06/21/19 Note: JI ASHRAF was visited. Therapy notes read and reviewed. She was discussed in interdisciplinary team rounds. She has no new complaints and is ready to go home Current Medications: Active Medications Generic Name Dose Route Start Last Admin Trade Name Freq PRN Reason Stop Dose Admin Acetaminophen 650 mg 05/20/19 14:51 Tylenol Tab* PO Q6H PRN PAIN - MODERATE Al Hydrox/Mg Hydrox/Simethicone 30 ml 05/20/19 14:06 05/30/19 13:13 Maalox Plus* PO 30 ml Q6H PRN Administration INDIGESTION Amlodipine Besylate 5 mg 05/21/19 09:00 06/21/19 09:43 Norvasc Tab* PO 5 mg DAILY CANDIDO Administration Bisacodyl 10 mg 05/20/19 14:06 06/02/19 19:12 Dulcolax Supp* CO 10 mg DAILY PRN Administration CONSTIPATION Docusate Sodium 100 mg 05/20/19 21:00 06/21/19 09:43 Colace Cap* PO 100 mg BID CANDIDO Administration Enoxaparin Sodium 40 mg 06/08/19 09:00 06/21/19 15:44 Lovenox(*) SUBCUT 40 mg Q24H CANDIDO Administration Magnesium Hydroxide 30 ml 05/20/19 14:06 06/04/19 17:44 Milk Of Magnesia Liq* PO 15 ml Q6H PRN Administration CONSTIPATION Multivitamins/Minerals 1 tab 05/21/19 09:00 06/21/19 09:43 Theragran/Minerals Tab* PO 1 tab DAILY CANDIDO Administration Pto - Sleep Aid ( 1 dose 05/21/19 17:58 06/20/19 20:56 Doxylamine 25 Mg) PO 1 dose BEDTIME PRN Administration SLEEP Pto - Super C Mvi 1 dose 05/22/19 18:00 06/21/19 17:10 PO 1 dose BID WITH MEALS CANDIDO Administration Pto - Inner Defense 1 cap 05/22/19 17:00 06/21/19 17:10 Supplement 1 Cap PO 1 cap 0900,1700 CANDIDO Administration Pto - Vitamin De 5,000 units 05/27/19 17:00 06/21/19 17:10 Gold 5,000 Units PO 5,000 units 1700 CANDIDO Administration Pto - Super B Mvi 1 dose 05/27/19 17:00 06/21/19 17:10 Supplement PO 1 dose 1700 CANDIDO Administration Ondansetron HCl 4 mg 05/30/19 14:54 06/07/19 12:55 Zofran Odt Tab* PO 4 mg Q6H PRN Administration NAUSEA Polyethylene Glycol/Electrolytes 17 gm 05/26/19 21:00 06/20/19 20:58 Miralax* PO Not Given BEDTIME CANDIDO Senna 2 tab 05/20/19 14:06 06/20/19 20:56 Senokot 8.6 Mg Tab* PO 2 tab BEDTIME PRN Administration CONSTIPATION Vital Signs: Vital Signs Temp Pulse Resp BP Pulse Ox 98.1 F 72 16 145/86 100 06/21/19 16:03 06/21/19 16:03 06/21/19 16:03 06/21/19 16:03 06/21/19 16:03 Exam: GENERAL: No acute distress. Alert and appropriate. LUNGS: Clear to auscultation bilaterally. HEART: Regular rate and rhythm. ABDOMEN: Active bowel sounds. Soft, nontender, nondistended. EXTREMITIES: +DP/PT pulses bilaterally. Left leg brace locked at 20 degrees of flexion. Right arm in a sling. SKIN: Left leg fasciotomy sites dressings c/d/i. Left upper thigh incision intact with some steri strips still hanging on. NEUROLOGICAL EXAM: Normal sensation x3. Impaired sensation in left leg below the knee. Trace left toe flexion and otherwise 0/5 left foot/ankle. Exam of rest of LLE motor limited by restrictions. RLE and LUE motor 5/5. RUE motor 5/ 5 in hand and wrist with rest of exam limited by sling. 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 1. Status post popliteal bypass: Hold on Plavix until after she has had surgery with potential skin grafting with the [facility]. She had followup with Vascular Surgery 06/03/2019 with sutures removed. 2. Left knee dislocation with ligament tears: NWB LLE. Brace on left leg locked to 20 degrees of flexion. ROM and stretching of her left foot/ankle 5 times per day to prevent contracture. Multipodus boot when in bed. f/u with orthopedics. 3. Right Humerus Fracture: Sling for RUE. AROM and PROM of right elbow and strengthening of wrist and hand. f/u with orthopedics. 3. Status post LLE fasciotomy with open wounds: Continue with moist to dry dressings b.i.d. to the left leg with ANIL wrap. Dr. Jones/plastic surgery follow up 06/23 at 1pm. 4. Acute blood loss anemia: stable. Hb 8.8. Follow routine labs. 5. 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 Multi Podus boot on LLE when she is in bed. 6. Impaired mobility: PT for transfer, bed mobility, and short distance gait training using a margareth walker and wheelchair. 7. Impaired self-care: OT for ADL training and equipment evaluation. 8. Advance directives: She is a full code. Her , Bradley Ashraf, is surrogate decision maker. 9. Vitamin D deficiency: has own supplement of 5000iu daily. 10. DVT prophylaxis: Lovenox. 06/21/19 19:52
[2019-06-21] MEDS: [UNRECOGNIZED DRUG - OTHER] PO PRN (21:29)
[2019-06-21] MEDS: DOXYLAMINE PO PRN (21:29)
[2019-06-21] MEDS: Senna TAB 8.6 mg* TAB PO PRN (21:29)
[2019-06-21] MEDS: Polyethylene Glycol 3350* 17 GM PACKET PO SCH (21:31)
[2019-06-22 05:29] VITALS: BP 142/63
[2019-06-22 06:13] LABS: ABS Basophils 0.1 10^3/ul (0-0.2); ABS Eosinophils 0.2 10^3/ul (0-0.6); ABS Lymphocytes 1.6 10^3/ul (1.0-4.8); ABS Monocytes 0.6 10^3/ul (0-0.8); ABS Neutrophils 3.5 10^3/ul (1.5-7.7); Hematocrit 26 % (35-47); Hemoglobin 8.9 g/dL (12.0-16.0); Lymphocyte % 26.2 %; Mean Corpuscular HGB Conc 34 g/dL (31-36); Mean Corpuscular Hemoglobin 31 pg (27-31); Mean Corpuscular Volume 89 fL (80-97); Mean Platelet Volume 7.9 fL (7.4-10.4); Platelet Count 212 10^3/uL (150-450); Red Blood Count 2.93 10^6 /uL (3.70-4.87); Red Cell Distribution Width 16 % (10-15)
[2019-06-22 06:31] LABS: Albumin/Globulin Ratio 1.3 (1-3); BUN/Creatinine Ratio 12.7 (8-20); Calcium 8.9 mg/dL (8.6-10.3); EGFR African American 88.7 (>60); EGFR Non-African American 73.3 (>60); Globulin 2.4 g/dL (2-4); Potassium 3.9 mmol/L (3.5-5.0); Total Bilirubin 0.4 mg/dL (0.2-1.0); Total Protein 5.4 g/dL (6.4-8.9)
[2019-06-22] MEDS: [UNRECOGNIZED DRUG - OTHER] PO SCH (08:44)
[2019-06-22] MEDS: Multivitamins/Minerals TAB PO SCH (08:44)
[2019-06-22] MEDS: amLODIPine TAB* 5 MG PO SCH (08:44)
[2019-06-22] MEDS: Enoxaparin(*) 40 MG/0.4 ML SYR SUBCUT SCH (08:44)
[2019-06-22] MEDS: [UNRECOGNIZED DRUG - OTHER] PO SCH (08:44)
[2019-06-22] MEDS: Docusate CAP* 100 MG PO SCH (08:44)
--- NOTE | 2019-06-29 11:07 | DS ---
DISCHARGE SUMMARY: DATE OF ADMISSION: 05/20/19 DATE OF DISCHARGE: 06/22/19 DISCHARGE DIAGNOSES: 1. Left popliteal artery transection, status post popliteal artery bypass. 2. Left knee dislocation with ligament tears. 3. Right humerus fracture. 4. Fasciotomies, left lower extremity. 5. Acute renal failure. 6. Peroneal and tibial neuropathy, left lower extremity. 7. Vitamin D deficiency. HISTORY OF ILLNESS AND HOSPITAL COURSE: For complete history of the events leading up to her rehab stay, please see the history and physical dictated by Dr. Naida Smith on 05/20/19. While on the rehab unit, the patient remained fairly stable from a medical point of view. Her wounds were changed daily. Her fasciotomy sites remained clean. She had ongoing improvement in her renal function. Her creatinine was 1.62 on admission and on discharge, her creatinine was 0.79. As her renal function improved, her DVT prophylaxis was changed from heparin 3 times a day to Lovenox once a day. She remained in a brace for her right knee ligament tears. She remained in a sling for her right humerus. She did have a followup with her vascular surgeon. Her sutures were removed. She also saw Plastic Surgery, who felt that she needed some more time before grafting the medial fasciotomy site. The patient will have further followup with Vascular and Plastic Surgery. She remained nonweightbearing on her left leg as well as her right arm. The patient did have apparent nerve damage in her left leg. She will need nerve conduction studies after her fasciotomy closure has healed. The patient was seen by Physical and Occupational Therapy and made good gains with both disciplines. With physical therapy at the time of admission, the patient was required min assist for bed mobility but was dependent for transfers and was unable to propel a wheelchair. With occupational therapy at the time of admission, the patient required mod assist for upper body dressing. She was dependent for lower body dressing, dependent for donning and doffing footwear, mod assist for bathing, dependent for toileting, dependent for toilet transfers. By the time of discharge, the patient was able to propel a wheelchair with supervision. She could stand with supervision. She was unable to ambulate. She actually was independent in wheelchair propulsion. With occupational therapy at the time of discharge, the patient remained max assist for bathing, setup for upper body dressing, max assist for lower body dressing, and dependent for footwear, supervision for toilet transfers and max assist for toilet hygiene. The patient's family came in for family training prior to discharge. She was discharged home, 06/22/19. DISCHARGE DIET: Regular. DISPOSITION: Home. CONDITION AT DISCHARGE: Good. DISCHARGE MEDICATIONS: 1. Amlodipine 5 mg daily. 2. Lovenox 40 mg every 24 hours. 3. Senokot 2 tablets at bedtime. 4. Multivitamin once a day. SERVICES AFTER DISCHARGE: To [facility]. She will have home physical therapy and home nursing for wound care checks. FOLLOWUP: She will follow up with Dr. Agosto" at [facility], 06/23/19. She will also follow up with Orthopedics at [facility] on 06/23/19. [id number]/[facility] #: [id number] GALO
== END 2019-06-22 14:44 | disposition home health service (06) | DRG 862 ==
LOC: PMRU 14:06
PROVIDERS: ADMIT Physical Medicine & Rehabilitation; ATTEND Physical Medicine & Rehabilitation
PROC: F07Z5ZZ Bed Mobility Treatment (ICD-10-PCS; principal; 2019-05-20)
PROC: F07Z9ZZ Gait Training/Functional Ambulation Treatment (ICD-10-PCS; 2019-05-20)
PROC: F07Z8ZZ Transfer Training Treatment (ICD-10-PCS; 2019-05-20)
PROC: F07Z4ZZ Wheelchair Mobility Treatment (ICD-10-PCS; 2019-05-20)
PROC: F08Z0ZZ Bathing/Showering Techniques Treatment (ICD-10-PCS; 2019-05-20)
PROC: F08Z1ZZ Dressing Techniques Treatment (ICD-10-PCS; 2019-05-20)
PROC: F08Z3ZZ Feeding/Eating Treatment (ICD-10-PCS; 2019-05-20)
PROC: F08Z2ZZ Grooming/Personal Hygiene Treatment (ICD-10-PCS; 2019-05-20)
DX: Z48.812 Encounter for surgical aftercare following surgery on the circulatory system (principal); N17.9 Acute kidney failure, unspecified; E87.1 Hypo-osmolality and hyponatremia; D62 Acute posthemorrhagic anemia; S83.19 Other subluxation and dislocation of knee; S42.201D Unspecified fracture of upper end of right humerus, subsequent encounter for fracture with routine healing; S83.92XD Sprain of unspecified site of left knee, subsequent encounter; E66.9 Obesity, unspecified; E55.9 Vitamin D deficiency, unspecified; M79.89 Other specified soft tissue disorders; W00.0XXD Fall on same level due to ice and snow, subsequent encounter; Z68.37 Body mass index [BMI] 37.0-37.9, adult; Z87.891 Personal history of nicotine dependence; Z79.899 Other long term (current) drug therapy; Z88.6 Allergy status to analgesic agent; Z88.0 Allergy status to penicillin; Z80.3 Family history of malignant neoplasm of breast; Z80.41 Family history of malignant neoplasm of ovary; S84.80 Injury of other nerves at lower leg level
CPT/HCPCS: 36415; 80053; 82306; 85025; A9270-GY; J1644; J1650